=== PATIENT | female | born 1980 | race Caucasian/White ===

== ENCOUNTER → 2018-06-15 14:39 | Outpatient (CLI) | payer BC, SELFPAY ==
--- NOTE | 2018-06-15 14:49 | RAD_ITS ---
STUDY: X-RAY - PELVIS REASON FOR EXAM: Female, 38 years old. Pain. TECHNIQUE: One view of the pelvis was obtained. COMPARISON: None. FINDINGS: There is a non-specific bowel gas pattern. Normal visualized soft tissue structures. Normal bilateral iliac wings, sacroiliac joints and visualized sacrum. Normal visualized bilateral superior and inferior pubic rami. Normal pubic symphysis. Normal ischial tuberosities. Normal visualized right femoral head. Normal right acetabulum. Normal right hip joint. Normal visualized left femoral head. Normal left acetabulum. Normal left hip joint. RAD/Pelvis 1 or 2 Views IMPRESSION: Normal x-ray examination of the pelvis. Electronically Signed: Roni Jose MD at 23:29 EST , Service support ,
[2018-06-15 15:54] LABS: Absolute Lymphocyte Count 1.37 X10^3/ul (0.83-4.51); Absolute Neutrophil Count 5.1 X10^3/uL (2.0-7.7); Basophil# 0.02 X10^3/uL; Basophil% 0.3 % (0-1); Eosinophil# 0.07 X10^3/uL; Hematocrit 44.4 % (37-47); Hemoglobin 15.1 g/dl (12.0-15.0); Lymphocyte # 1.37 X10^3/ul (4.0); Mean Corpuscular Hgb 31.5 pg (27.0-32.0); Mean Corpuscular Volume 92.7 fL (81-99); Monocyte# 0.29 X10^3/uL; Monocyte% 4.2 % (0-10); Neutrophil # 5.07 X10^3/uL (2.7-7.7); Neutrophil % 74.2 % (47-70); Platelet Count 215 K/mm3 (150-450); RBC Distribution Width CV 14.1 % (11.6-14.6); RBC Distribution Width SD 46.5 fl (35.1-43.9); Red Blood Count 4.79 M/mm3 (4.2-5.4); White Blood Count 6.8 K/mm3 (4.4-11.0)
[2018-06-15 15:58] LABS: AST(SGOT) 29 U/L (15-37); Alanine Aminotransfer ALT/SGPT 46 U/L (13-56); Albumin, Serum 4.1 g/dL (3.2-5.0); Alkaline Phosphatase 82 U/L (45-117); Anion Gap 9 (5-15); BUN 12 mg/dL (7-18); BUN/Creat Ratio 15.1 RATIO (10-20); Calcium,Total 9.2 mg/dL (8.5-10.1); Chloride 105 mmol/L (98-107); Creatinine, Serum 0.79 mg/dL (0.55-1.02); EST Glomerular Filtration Rate 85 mL/min (>60); Est Glom Filt Rate - Afr Amer 103 mL/min (>60); Glucose 93 mg/dL (74-106); Protein, Total 8.1 g/dL (6.4-8.2); Rheumatoid Factor < 10.0 IU/mL (<15); Sodium Level 141 mmol/L (136-145)
[2018-06-15 15:59] LABS: POSITIVE COUNT NO; POSITIVE DIFFERENTIAL NO; POSITIVE MORPHOLOGY NO
[2018-06-22 16:55] LABS: CCP IgG Antibodies 4 units (0-19); HEPATITIS B SURFACE AG Negative (Negative); HLA B27 Negative (.); Hep B Surface Antibodies Reactive (.); Hep C Antibodies <0.1 s/co ratio (0.0-0.9)
== END ==
LOC: MTLAB 14:47
PROVIDERS: Family Provider Family Medicine; PCP Family Medicine; Referring Provider Internal Medicine Rheumatology; Visit Provider Internal Medicine Rheumatology
DX: M46.90 Unspecified inflammatory spondylopathy, site unspecified (principal); M79.7 Fibromyalgia; H81.03 Meniere's disease, bilateral; F41.9 Anxiety disorder, unspecified; F32.89 Other specified depressive episodes
CPT/HCPCS: 36415; 72170; 80053; 81374; 85025; 86200; 86431; 86706; 86803; 87340

== ENCOUNTER → 2018-08-24 07:43 | Outpatient (CLI) | payer BC, SELFPAY ==
[2018-08-24 10:15] LABS: Absolute Lymphocyte Count 0.89 X10^3/ul (0.83-4.51); Absolute Neutrophil Count 3.3 X10^3/uL (2.0-7.7); Basophil# 0.02 X10^3/uL; Basophil% 0.5 % (0-1); Eosinophil# 0.05 X10^3/uL; Eosinophils% 1.1 % (0-5); Hematocrit 41.5 % (37-47); Hemoglobin 13.7 g/dl (12.0-15.0); Lymphocyte # 0.89 X10^3/ul (4.0); Lymphocyte % 20.1 % (19-41); Mean Corpuscular Hgb 31.2 pg (27.0-32.0); Mean Corpuscular Volume 94.5 fL (81-99); Mean Platelet Vol. 9.7 fl (6.2-12.0); Monocyte# 0.21 X10^3/uL; Monocyte% 4.7 % (0-10); Neutrophil # 3.25 X10^3/uL (2.7-7.7); Neutrophil % 73.4 % (47-70); Platelet Count 186 K/mm3 (150-450); RBC Distribution Width CV 14.8 % (11.6-14.6); RBC Distribution Width SD 48.8 fl (35.1-43.9); Red Blood Count 4.39 M/mm3 (4.2-5.4); White Blood Count 4.4 K/mm3 (4.4-11.0)
[2018-08-24 10:20] LABS: POSITIVE COUNT NO; POSITIVE DIFFERENTIAL NO; POSITIVE MORPHOLOGY NO
[2018-08-24 10:27] LABS: AST(SGOT) 72 U/L (15-37); Alanine Aminotransfer ALT/SGPT 67 U/L (13-56); Albumin, Serum 3.8 g/dL (3.2-5.0); Alkaline Phosphatase 78 U/L (45-117); Anion Gap 7 (5-15); BUN 9 mg/dL (7-18); BUN/Creat Ratio 11.4 RATIO (10-20); Calcium,Total 9.1 mg/dL (8.5-10.1); Chloride 107 mmol/L (98-107); Creatinine, Serum 0.79 mg/dL (0.55-1.02); EST Glomerular Filtration Rate 86 mL/min (>60); Est Glom Filt Rate - Afr Amer 104 mL/min (>60); Globulin 3.7 g/dL (2.2-4.2); Glucose 103 mg/dL (74-106); Potassium 4.3 mmol/L (3.5-5.1); Protein, Total 7.5 g/dL (6.4-8.2); Sodium Level 141 mmol/L (136-145)
== END ==
PROVIDERS: Family Provider Family Medicine; PCP Family Medicine; Referring Provider Internal Medicine Rheumatology; Visit Provider Internal Medicine Rheumatology
DX: M46.90 Unspecified inflammatory spondylopathy, site unspecified (principal); M79.7 Fibromyalgia; H81.03 Meniere's disease, bilateral; F32.89 Other specified depressive episodes; F41.9 Anxiety disorder, unspecified
CPT/HCPCS: 36415; 80053; 85025

== ENCOUNTER → 2020-05-30 14:51 | Outpatient (CLI) | payer BC, SELFPAY ==
[2020-05-30 17:30] LABS: Absolute Lymphocyte Count 1.19 X10^3/uL (0.83-4.51); Absolute Neutrophil Count 6.9 X10^3/uL (2.0-7.7); Basophil# 0.04 X10^3/uL; Basophil% 0.5 % (0-1); Eosinophil# 0.08 X10^3/uL; Eosinophils% 0.9 % (0-5); Hematocrit 42.2 % (37-47); Hemoglobin 14.5 g/dL (12.0-15.0); Lymphocyte # 1.19 X10^3/ul (4.0); Lymphocyte % 13.9 % (19-41); Mean Corp Hgb Conc 34.4 g/dL (32-36); Mean Corpuscular Hgb 32.1 pg (27.0-32.0); Mean Corpuscular Volume 93.4 fL (81-99); Mean Platelet Vol. 10.1 fl (6.2-12.0); Monocyte# 0.39 X10^3/uL; Monocyte% 4.5 % (0-10); NRBC Flagged by Analyzer 0 % (0-5); Neutrophil # 6.85 X10^3/uL (2.7-7.7); Neutrophil % 79.7 % (47-70); Platelet Count 199 K/mm3 (150-450); RBC Distribution Width CV 13.5 % (11.6-14.6); RBC Distribution Width SD 45.4 fl (35.1-43.9); Red Blood Count 4.52 M/mm3 (4.2-5.4); White Blood Count 8.6 K/mm3 (4.4-11.0)
[2020-05-30 18:00] LABS: AST(SGOT) 58 U/L (15-37); Alanine Aminotransfer ALT/SGPT 53 U/L (13-56); Albumin, Serum 3.9 g/dL (3.2-5.0); Alkaline Phosphatase 102 U/L (45-117); Anion Gap 4 (5-15); BUN 12 mg/dL (7-18); BUN/Creat Ratio 13.1 RATIO (10-20); Chloride 107 mmol/L (98-107); Creatinine, Serum 0.92 mg/dL (0.55-1.02); EST Glomerular Filtration Rate 71 mL/min (>60); Est Glom Filt Rate - Afr Amer 86 mL/min (>60); Globulin 3.9 g/dL (2.2-4.2); Glucose 96 mg/dL (74-106); Potassium 4.3 mmol/L (3.5-5.1); Protein, Total 7.8 g/dL (6.4-8.2); Sodium Level 140 mmol/L (136-145)
== END ==
PROVIDERS: PCP Family Medicine; Referring Provider Internal Medicine Rheumatology; Visit Provider Internal Medicine Rheumatology
DX: M46.90 Unspecified inflammatory spondylopathy, site unspecified (principal); M79.7 Fibromyalgia; H81.03 Meniere's disease, bilateral; K76.0 Fatty (change of) liver, not elsewhere classified; F41.9 Anxiety disorder, unspecified; F32.89 Other specified depressive episodes; Z79.899 Other long term (current) drug therapy
CPT/HCPCS: 36415; 80053; 85025

== ENCOUNTER 2022-07-03 16:05 | Emergency (ER) | payer BC, SELFPAY ==
[2022-07-03 16:08] VITALS: BP 115/93; PULSE 105; RESP 16; TEMP 36.6; O2SAT 99; BMI 24.7
--- NOTE | 2022-07-03 16:26 | CT_ITS ---
EXAM: CT ABDOMEN AND PELVIS WITHOUT INTRAVENOUS CONTRAST CLINICAL INDICATION: Kidney Stone TECHNIQUE: Helically acquired images were obtained of the abdomen and pelvis without intravenous contrast. This CT exam was performed using one or more of the following dose reduction techniques: automated exposure control, adjustment of the mA and/or kV according to patient size, and/or use of iterative reconstruction technique. This report was created using [employer] report generation technology. COMPARISON: None. FINDINGS: LOWER THORAX: Unremarkable. Lung bases are clear. No cardiomegaly. No significant pericardial effusion. ABDOMEN: LIVER: Liver diffusely decreased in attenuation compatible with fatty infiltration. GALLBLADDER AND BILE DUCTS: Unremarkable. No calcified gallstones. No gallbladder distention or wall edema. No intra- or extrahepatic biliary ductal dilation. PANCREAS: Unremarkable. No focal cystic mass. SPLEEN: Unremarkable. Normal size without focal cystic or solid mass. ADRENALS: Unremarkable. No nodules. KIDNEYS AND URETERS: There are nonobstructing calyceal stones in both kidneys. Normal renal size and position. STOMACH AND BOWEL: Unremarkable. No stomach or bowel distention. No focal inflammatory change. PELVIS: APPENDIX: No evidence of acute appendicitis. BLADDER: Unremarkable. REPRODUCTIVE: Unremarkable as visualized. No mass. ABDOMEN and PELVIS: INTRAPERITONEAL SPACE: Unremarkable. No ascites or other fluid collection. No free air. BONES/JOINTS: Unremarkable. No suspicious lytic or blastic abnormality. SOFT TISSUES: Unremarkable. No discrete abdominal or pelvic wall hernia. VASCULATURE: Unremarkable. Abdominal aorta is non-dilated. LYMPH NODES: Unremarkable. No enlarged lymph nodes. CT/Abdomen/Pelvis without Cont IMPRESSION: Nonobstructing calyceal stones. There are no acute abnormalities in the abdomen or pelvis. Electronically Signed: Farhad Erazo MD at 17:22 [facility] ,
--- NOTE | 2022-07-03 16:27 | EDS_ITS ---
HPI HPI - GI History of Present Illness Chief Complaint: Abd Pain Narrative Narrative: 42-year-old female past medical history of 5 mm renal stone on the right presents with 1 month history of left flank pain. It is gotten worse over the last 3 to 4 days. She is experienced nausea and vomited a few times a few days ago without any blood in her emesis. She describes a intermittent pain in her left kidney area that wraps around to the front. She feels dehydrated. She denies any dysuria or hematuria. No exacerbating or alleviating factors for her pain. She states that her primary care provider recommended that she be evaluated here. She was supposed to see a urologist over the last month but she states someone dropped the ball.. She denies any fevers or chills. No other symptoms. PFSH PFSH Medical History no medical history Home Medications celecoxib 100 mg capsule (Celebrex) 100 mg PO BID 07/03/22 [History Last Taken Unknown] cyclobenzaprine 10 mg tablet 10 mg PO TID PRN muscle spasm #20 tabs 07/03/22 [Rx Last Taken Unknown] gabapentin 300 mg capsule 300 mg PO QHS 07/03/22 [History Last Taken Unknown] naproxen 500 mg tablet 500 mg PO BID PRN PRN pain #20 tabs 07/03/22 [Rx Last Taken Unknown] sertraline 100 mg tablet (Zoloft) 100 mg PO DAILY 07/03/22 [History Last Taken Unknown] Allergy/AdvReac Type Severity Reaction Status Date / Time cephalexin Allergy Rash Verified 07/03/22 16:08 Sulfa (Sulfonamide Allergy Swelling Verified 07/03/22 16:08 Antibiotics) nalbuphine [From Nubain] AdvReac Nausea/Vom/ Verified 07/03/22 16:08 Diarrhea Social History Smoking Status: Former smoker ROS ROS ED ROS Narrative Constitutional: No fever, no chills. HEENT: No sore throat. No neck pain. No loss of vision. No rhinorrhea. Cardiovascular: No chest pain. No palpitations. No pedal edema. Respiratory: No cough, no shortness of breath. Abdominal: No abdominal pain. Positive nausea. Positive vomiting-resolved. Genitourinary: No dysuria. No hematuria. Left flank pain. No exacerbating or alleviating factors. Musculoskeletal: No myalgias. No arthralgias. Neurologic: No headaches. No dizziness. No lightheadedness. Skin: No rash. No change in color. Psychiatric: No depression. No anxiety. EXAM Physical Exam Narrative Exam Narrative: Afebrile. Vital signs noted. HEENT: Normocephalic. Atraumatic. PERRL, EOMI. Neck soft and supple. No point tenderness or step off. Cardiovascular: Regular rate and rhythm. No murmurs, rubs, or gallops appreciated. Respiratory: No tachypnea. Lungs clear to auscultation bilaterally. Gastrointestinal: Abdomen soft, nontender, with normoactive bowel sounds. No rebound or guarding. Questionable CVA tenderness to percussion. Neurological: Awake. Alert. Nonfocal, nonlateralizing. Skin: No rash. Normal color. No pallor. Musculoskeletal: No pedal edema. Full range of motion extremities. Const Vital Signs: 07/03/22 16:08 Temperature 98 F Temperature Source Temporal Pulse Rate 105 H Respiratory Rate 16 Blood Pressure 115/93 H Blood Pressure Mean 100 Pulse Ox 99 Oxygen Delivery Method Room Air MDM MDM MDM Narrative Medical decision making narrative: Patient administered Toradol for analgesia. She has had a bilateral tubal ligation. Comprehensive work-up was pursued. I obtain CBC, BMP, urinalysis, and CT flank without contrast. She was bolused normal saline intravenously. She was given Toradol for analgesia. CBC is grossly normal with a normal white count of 5.8, hemoglobin of 15.1 with hematocrit 43.5, normal platelet count of 159. BMP is grossly normal with normal creatinine of 0.7 and a normal BUN of 15. Urinalysis negative for infection or blood. CT of the abdomen and pelvis shows nonobstructing bilateral renal stones but no evidence of hydronephrosis or ureteral stones. At this point in time, I am unsure as to the cause of her left flank pain. She states that she has pain in the left paraspinal musculature. I offered to write her prescriptions for cyclobenzaprine and naproxen which she accepted. I do feel that she can be discharged safely home with continued follow-up to her primary care provider. Return instructions to the emergency department were reviewed. Disposition is discharged home in stable condition. Lab Data Attestation: I reviewed the patient's lab results. Labs: Laboratory Results - last 24 hr 07/03/22 07/03/22 07/03/22 16:25 16:25 16:50 WBC 5.8 RBC 4.86 Hgb 15.1 H Hct 43.5 MCV 89.5 MCH 31.1 MCHC 34.7 RDW Std Deviation 42.6 RDW Coeff of Mariluz 13.2 Plt Count 159 MPV 9.3 Immature Gran % (Auto) 0.500 Neut % (Auto) 70.4 H Lymph % (Auto) 19.7 [place] % (Auto) 8.0 Eos % (Auto) 1.2 Baso % (Auto) 0.2 Absolute Neuts (auto) 4.1 Absolute Lymphs (auto) 1.14 Nucleated RBC % 0 Sodium 139 Potassium 3.7 Chloride 106 Carbon Dioxide 24.0 Anion Gap 9 BUN 15 Creatinine 0.78 Estim Creat Clear Calc 76.14 Est GFR (MDRD) Af Amer 103 Est GFR (MDRD) Non-Af 85 BUN/Creatinine Ratio 19.3 Glucose 94 Calcium 9.0 Urine Color Yellow Urine Clarity Clear Urine pH 6.5 Ur Specific [place] 1.010 Urine Protein Negative Urine Glucose (UA) Normal Urine Ketones 5 H Urine Occult Blood Negative Urine Nitrite Negative Urine Bilirubin Negative Urine Urobilinogen Normal Ur Leukocyte Esterase Negative Urine RBC 0 SEEN Urine WBC 0 SEEN Ur Squamous Epith Cells 0-5 SEEN Urine Bacteria 0 SEEN Urine Mucus 0 SEEN Radiography Diagnostic Testing: Clinical Impression(s) from Imaging Studies Abdomen/Pelvis CT 07/03/22 16:26 IMPRESSION: Nonobstructing calyceal stones. There are no acute abnormalities in the abdomen or pelvis. Electronically Signed: Farhad Erazo MD at 17:22 EST , Discharge Plan Triage Chief Complaint: Abd Pain ED Provider: Dre Franco Dx/Rx/DC Orders Clinical Impression: Left flank pain, Left paraspinal back pain Instructions: ED Flank Pain, Uncertain Cause, ED Pain, Acute, Uncertain Cause Prescriptions: New cyclobenzaprine 10 mg tablet 10 mg PO TID PRN (Reason: muscle spasm) Qty: 20 0RF naproxen 500 mg tablet 500 mg PO BID PRN PRN (Reason: pain) Qty: 20 0RF No Action sertraline [Zoloft] 100 mg Tablet 100 mg PO DAILY gabapentin 300 mg Capsule 300 mg PO QHS celecoxib [Celebrex] 100 mg Capsule 100 mg PO BID Primary Care Provider: Sheela Reyes Referrals: Sheela Reyes, [Primary Care Provider] - 3-5 Days if not improving Disposition Disposition: Home, Self Care
[2022-07-03] MEDS: Ketorolac 15 MG/ML Vial IV (16:38)
[2022-07-03 16:55] LABS: Absolute Lymphocyte Count 1.14 X10^3/uL (0.83-4.51); Absolute Neutrophil Count 4.1 X10^3/uL (2.0-7.7); Basophil# 0.01 X10^3/uL; Basophil% 0.2 % (0-1); Eosinophil# 0.07 X10^3/uL; Eosinophils% 1.2 % (0-5); Hematocrit 43.5 % (37-47); Hemoglobin 15.1 g/dL (12.0-15.0); Lymphocyte # 1.14 X10^3/ul (0.83-4.51); Lymphocyte % 19.7 % (19-41); Mean Corp Hgb Conc 34.7 g/dL (32-36); Mean Corpuscular Hgb 31.1 pg (27.0-32.0); Mean Corpuscular Volume 89.5 fL (81-99); Mean Platelet Vol. 9.3 fl (6.2-12.0); Monocyte# 0.46 X10^3/uL; NRBC Flagged by Analyzer 0 % (0-5); Neutrophil # 4.07 X10^3/uL (2.7-7.7); Neutrophil % 70.4 % (47-70); Platelet Count 159 K/mm3 (150-450); RBC Distribution Width CV 13.2 % (11.6-14.6); RBC Distribution Width SD 42.6 fl (35.1-43.9); Red Blood Count 4.86 M/mm3 (4.2-5.4); White Blood Count 5.8 K/mm3 (4.4-11.0)
[2022-07-03 17:01] LABS: Bacteria 0 SEEN /hpf (None Seen); Mucous, Urine 0 SEEN /hpf (<or=2+); Red Blood Cells-Urine 0 SEEN /hpf (0-5); White Blood Cells 0 SEEN /hpf (0-5)
[2022-07-03 17:12] LABS: Color, Urine Yellow (Yellow); Glucose, Dipstick Normal (Normal); Ketone-Dipstick 5 mg/dl (Negative); Leukocyte Esterase-Dipstick Negative /ul (Negative); Nitrite-Dipstick Negative (Negative); Occult Blood-Urine Negative /ul (Negative); Protein-Dipstick Negative (Negative); Urine Bilirubin Dipstick Negative (Negative); Urine Clarity Clear (Clear); Urine Urobilinogen Normal (Normal); Urine pH 6.5 (5.0 - 8.0)
[2022-07-03 17:17] LABS: Anion Gap 9 (5-15); BUN 15 mg/dL (7-18); BUN/Creat Ratio 19.3 RATIO (10-20); Chloride 106 mmol/L (98-107); Creatinine, Serum 0.78 mg/dL (0.55-1.02); EST Glomerular Filtration Rate 85 mL/min (>60); Est Glom Filt Rate - Afr Amer 103 mL/min (>60); Estimated Creatinine Clearance 76.14 ml/min; Glucose 94 mg/dL (74-106); Potassium 3.7 mmol/L (3.5-5.1); Sodium Level 139 mmol/L (136-145)
[2022-07-03 17:19] LABS: Squamous Epithelial Cells - UA 0-5 SEEN /hpf (5-10)
[2022-07-03 18:28] VITALS: BP 123/91; PULSE 89; RESP 16; O2SAT 96
== END 2022-07-03 18:29 | disposition home or self-care (01) ==
PROVIDERS: Emergency Provider Emergency Medicine; PCP Family Medicine; Visit Provider Emergency Medicine
DX: R10.9 Unspecified abdominal pain (principal); N20.0 Calculus of kidney; Z87.891 Personal history of nicotine dependence; M54.9 Dorsalgia, unspecified
CPT/HCPCS: 74176; 80048; 81001; 85025; 96374; 99282; A4216

== ENCOUNTER → 2022-07-07 | Outpatient (CLI) | payer BC, SELFPAY ==
--- NOTE | 2022-07-07 12:30 | RAD_ITS ---
EXAM: XR ABDOMEN, 1 VIEW CLINICAL INDICATION: CALCLUS OF KIDNEY TECHNIQUE: Frontal supine view of the abdomen/pelvis. This report was created using [employer] report generation technology. COMPARISON: 06/15/18 FINDINGS: LOWER THORAX: No acute pathology. GASTROINTESTINAL TRACT: Prominent amount of stool and gas throughout the colon. ORGANS: Unremarkable as visualized. No organomegaly. No abnormal calcifications. BONES/JOINTS: No acute pathology. SOFT TISSUES: No acute pathology. OTHER FINDINGS: No obvious urolithiasis although the overlying stool and gas limits this type of assessment. RAD/Abdomen Single View IMPRESSION: 1. No acute disease or bowel obstruction. 2. Prominent amount of stool and gas throughout the colon can be seen with constipation. Electronically Signed: Yehuda Long MD at 4:39 EST ,
== END | disposition home or self-care (01) ==
LOC: RAD 12:20
PROVIDERS: PCP Family Medicine; Visit Provider Urology
DX: N20.0 Calculus of kidney (principal)
CPT/HCPCS: 74018

== ENCOUNTER 2023-01-15 05:45 | Day surgery (SDC) | payer BC, SELFPAY ==
[2023-01-13 08:19] LABS: Hematocrit 40.5 % (37-47); Hemoglobin 14.4 g/dL (12.0-15.0); Mean Corp Hgb Conc 35.6 g/dL (32-36); Mean Corpuscular Hgb 32.9 pg (27.0-32.0); Mean Corpuscular Volume 92.5 fL (81-99); Mean Platelet Vol. 9.2 fl (6.2-12.0); Platelet Count 196 K/mm3 (150-450); RBC Distribution Width CV 14.6 % (11.6-14.6); RBC Distribution Width SD 44.7 fl (35.1-43.9); Red Blood Count 4.38 M/mm3 (4.2-5.4); White Blood Count 6.3 K/mm3 (4.4-11.0)
--- NOTE | 2023-01-14 17:26 | PCM.HP.BLA ---
History and Physical Date of Admission: 01/15/23 Pre-Op History and Physical HPI: The patient is a 42 year old female presenting for pre-operative visit. She is scheduled for laparoscopic bilateral salpingectomy, for pelvic pain, left hydrosalpinx on 01/15/2023. Procedure discussed along with risks, benefits and complications. Other alternatives discussed for management. Consent form signed? Yes. ? ? PAST MEDICAL HISTORY PAST MEDICAL HISTORY Diagnosis Date ? Rheumatoid arteritis (HCC) ? ? ? PAST SURGICAL HISTORY PAST SURGICAL HISTORY Procedure Laterality Date ? APPENDECTOMY ? 04/2010 ? CHOLECYSTECTOMY ? 2004 ? PAST SURGICAL HISTORY OF ? 10/08 ? back surgery on L4 and 5 ? TUBAL LIGATION HX ? 1999 ? ? ? CURRENT MEDICATIONS Current Outpatient Medications Medication Sig Dispense Refill ? levonorgestrel (MIRENA) 21 mcg/24 hours (8 yrs) 52 mg IUD 1 Each by INTRAUTERINE route as directed. 1 Each 0 ? mv-min/iron/folic/calcium/vitK (WOMEN'S MULTIVITAMIN ORAL) Take by mouth. ? ? ? ibuprofen (MOTRIN) 600 mg tablet Take 1 tablet by mouth every 6 hours as needed. FOR PAIN. 60 tablet 1 ? sertraline (ZOLOFT) 100 mg tablet Take 150 mg by mouth once daily. ? No current facility-administered medications for this visit. ? ? ALLERGIES: Keflex [Cephalexin], Nubain [Nalbuphine], and Sulfa (Sulfonamide Antibiotics) ? PERSONAL HISTORY: SOCIAL HISTORY Social History ? Tobacco Use ? Smoking status: Former ? ? Years: 10.00 ? ? Types: Cigarettes ? ? Start date: 03/19/2009 ? Smokeless tobacco: Never Substance Use Topics ? Alcohol use: Yes ? ? Comment: Rare ? Drug use: No ? FAMILY HISTORY: FAMILY HISTORY FAMILY HISTORY Problem Relation Age of Onset ? Heart Mother ? ? 2 stents ? Hyperlipidemia Mother ? ? Hypertension Mother ? ? ? REVIEW OF SYMPTOMS: negative except as noted above PHYSICAL EXAMINATION: ? VITALS: Blood pressure 120/80, weight 175 lb (79.4 kg), last menstrual period 11/28/2022. ? GENERAL: The patient is well nourished, well hydrated in no acute distress. , The patient is oriented to time, place, and person. LUNGS: Clear to auscultation bilaterally. no wheezes, rhonchi or rales HEART: Regular rate and rhythm, Normal heart sounds, and No murmurs or gallops Neck: full range of motion ? IMPRESSION: 42-year-old female with left lower quadrant intermittent pain, left hydrosalpinx ? PLAN: Laparoscopic bilateral salpingectomy ? Pt has been counseled on risks/benefits and alternatives of surgery including but not limited to anesthesia, bleeding, infection, injury to pelvic structures including bowel, bladder, ureters and vessels. Pt wishes to proceed with surgery at this time. Patient has a history of a tubal ligation. She does not desire further childbearing capabilities. IUD is already in place. ? Pre and postop procedures reviewed ? I have reviewed and updated past medical and surgical history, medications and allergies Robyn Pinto MD ?4:08 PM
[2023-01-15] VITALS (8 sets, daily range): BP systolic 93–127; BP diastolic 57–82; PULSE 69–89; RESP 16–18; TEMP 36–36.4; O2SAT 90–100; BMI 31.4
[2023-01-15] MEDS: Lactated Ringers 1,000 ML 15 ML IV ×2 (06:15→09:06)
[2023-01-15 07:02] LABS: Internal QC Validated? YES +Cl - CLEAR BKGD; Pregnancy, Urine Negative Negative
--- NOTE | 2023-01-15 07:25 | DCINST_ITS ---
Discharge Instructions Procedure Other Diet Discharge Diet: No restrictions Activity May resume sexual activity in: 2 weeks Lifting Restrictions: 20-25 lbs Dressing / Incision Call your doctor if your incision/area has: Continuous Slow Oozing, Sudden Increased Bleeding, Increased Pain/ Swelling, Increased Redness, Foul Smelling Discharge and Swelling at the incision site Call your doctor if you observe: Fever of 101 or Higher, Inability to urinate, Inability to have a bowel movement, Using more than 1 pad per hour and Uncontrolled pain Additional Dressing/Incision Instructions:: You have skin glue over your incision sites, do not pick off. You may shower and let the soap and water run over the incision sites and dab dry. Follow Up Care Please Follow Up With: Robyn Hartman MD When: 1-2 weeks post OP if you need an appointment please call [phone] Test Results: Test results from this visit will be discussed in further detail at your follow- up appointment, if applicable. Discharge Plan Admission Attending Provider: Robyn Hartman Primary Care Provider: Fabiana Rand Discharge Orders/Prescriptions Prescriptions: No Action sertraline [Zoloft] 100 mg Tablet 100 mg PO DAILY ibuprofen 600 mg Tablet 600 mg PO Q8H PRN (Reason: Pain) biotin 500 mcg Capsule 1 mg PO DAILY Referrals / Follow Up: Fabiana Rand PA-C [Primary Care Provider] - Disposition Disposition (needs filled in before D/C Order can be placed): Home, Self Care
--- NOTE | 2023-01-15 07:30 | FALS_PTH ---
PATIENT: BERE CENTENO LOC: [facility] [place] U[place][id number] AGE/SX: 42/F ROOM: RE01/15/[address]: Dr. Robyn Hartman, MDDOB: 1980 BED: DIS: 01/15/2023 SPEC #: [id number] RECD: 01/15/23 09:49 STATUS: SVETA YANG #: [id number] SUSI: 01/15/23 07:[address]: Robyn Hartman DEPT: SURGICAL PATHOLOGY RECD BY: Lisset Celaya ENTERED: 01/15/23 10:35 SP TYPE: FALL TUBES OT DR: Fabiana Rand PA-C Tissues: Fallopian tube Procedures: Surgery Specimen Level II HEADER OPERATION: Laparoscopic salpingectomy PRE-OP DIAGNOSIS: Pelvic pain, left hydrosalpinx TISSUE SUBMITTED: Bilateral fallopian tubes MICROSCOPIC DIAGNOSIS Right and left fallopian tubes, bilateral salpingectomies: Consistent with hydrosalpinx and benign paratubal cysts. AM:alma 01/16/2023 MICROSCOPIC DESCRIPTION Slides are reviewed. GROSS DESCRIPTION Received in fixative is one container labeled with the patient's name and designated bilateral fallopian tubes. The specimen consists of two fallopian tubes with an average length of 4.0 cm and has an average diameter of 0.7 cm. Both fallopian tubes have normal fimbriated ends. No mass lesions are identified. Bottler Helper sections are submitted in two cassettes as follows: 1 - one fallopian tube, 2??the other fallopian tube. / AM:alma 01/15/2023 TC:5 CPT: 86035 x2
[2023-01-15] MEDS: Bupivacaine Mpf 0.5% 30 ML VIAL (07:55)
--- NOTE | 2023-01-15 08:28 | PCM.OPRPT ---
Report of Operation Date of Procedure: 01/15/23 Pre-Operative Diagnosis: Pelvic pain, left hydrosalpinx Post-Operative Diagnosis: same, significant Omental adhesions Surgery/Procedure Performed:: Lysis of adhesions, bilateral salpingectomy Description of Surgical Findings:: Signifcant adhesions of omentum to anterior abomdinal wall that need to be taken down prior to start of case- took more then 50% of operating time to take down. Surgeon: Robyn Hartman school community relations coordinator: None Type of Anesthesia: General and Local Special Medications: 0.5% marcaine Specimen's removed: Bilateral fallopian tubes Estimated Blood Loss (mL): <5cc Fluids Replaced: 800 Description of Procedure: After informed consent was obtained patient was taken to the operating room she was placed in supine position she was given anesthesia. She was then placed in the [facility] stirrups and she was prepped and draped in normal sterile fashion. Bladder was drained prior to the start of procedure. At this time attention was turned to the vaginal portion where weighted speculum placed at posterior fornix vagina single-tooth tenaculum was used to gently grasp the internal the cervix. uterus was gently sounded to [id number]. IUD inadvertently displaced with sound but easily replaced with rain- strings in place- the cervix on posterior lip tore from tenaculum- 3-0 vicryl in figure of eight fashion suture placed for hemostasis Uterine manipulator was placed without difficulty. Legs then placed in parallel with the abdomen the tenaculum and the weighted speculum were removed. 2 towel clamps were placed at level of umbilicus. Marcaine was injected infraumbilical and a small incision was made. The 5 mm trocar was placed under direct visualization. CO2 gas was used to insufflate the intra-abdominal cavity. Upon inspection signifcant omental adhesions noted to anterior abdominal wall to midline at umbilical area. the uterus tubes and ovaries appeared to be normal- small hydrosalpinx noted on left. At this time then the LLQ and RLQ ports were placed First Marcaine was injected and small incision was made a knife and the 5 mm trocars were placed. Adhesions taken down with enseal-in avascular plain - no bowel present. good hemostasis noted. At this time then tubes were traced back to the fimbriated ends. enseal was used to coagulate and ligate along mesosalpynx bilaterally until tubes removed completely. Good hemostasis was appreciated. At this time procedure was deemed complete successful. The gas was desufflated on from the intra-abdominal cavity. The trochars were removed. Skin was closed using 4-0 Monocryl in a subcutaneous fashion. Dermabond glue was placed. Instrument lap and needle counts were correct ?2. The uterine manipulator was removed with and IUD strings still visualized in place. Vaginal sweep was performed it was negative. There were no complications anticipated normal postoperative course for this patient. Grafts/Implants Used: none Procedure Start Time: 07:51 Procedure Stop Time: 08:27 Complications none Admit VTE Documentation VTE Present on Admission: Yes VTE Mechan Device Prophylaxis: SCD's VTE Pharm Prophylaxis ordered?: No Reason prophylaxis not ordered:: Procedure Not Indicated
[2023-01-15] MEDS: LORazepam 2 MG/ML Syringe IV (09:56)
== END 2023-01-15 11:50 | disposition home or self-care (01) ==
LOC: SDC 05:45 → AC 05:45
PROVIDERS: Anesthesiology; PCP Family Medicine; Referring Provider Obstetrics & Gynecology; Visit Provider Obstetrics & Gynecology
PROC: (CPT 58661; principal; 2023-01-15 07:15)
DX: N70.11 Chronic salpingitis (principal); R10.32 Left lower quadrant pain; S37.63XA Laceration of uterus, initial encounter; N99.71 Accidental puncture and laceration of a genitourinary system organ or structure during a genitourinary system procedure; N73.6 Female pelvic peritoneal adhesions (postinfective); Z87.891 Personal history of nicotine dependence
CPT/HCPCS: 58661; 49329; 00840; 36415; 81025; 85027; 88302; 93005; J7120; C1760; J2405

== ENCOUNTER → 2024-12-28 | Outpatient (CLI) | payer BC, SELFPAY ==
[2025-01-01 08:08] LABS: HPV APTIMA, High Risk Negative (Negative)
== END | disposition home or self-care (01) ==
LOC: LABSPEC 16:05
PROVIDERS: PCP Family Medicine; Referring Provider Advanced Practice Midwife; Visit Provider Advanced Practice Midwife
DX: Z12.4 Encounter for screening for malignant neoplasm of cervix (principal)
CPT/HCPCS: 87624; 88175; G0145

== ENCOUNTER → 2025-01-10 | Outpatient (CLI) | payer BC, SELFPAY ==
--- NOTE | 2025-01-10 15:30 | BI_ITS ---
EXAM: SCRN MAMM (CAD)W/JESUSITA BILAT DATE: 01/10/2025 CLINICAL HISTORY: F, Age 44 y/o , ANNUAL BREAST CANCER RISK ASSESSMENT: This is not calculated at this time. TECHNIQUE: Bilateral screening digital breast tomosynthesis with 2D and 3D images. Computer aided detection. COMPARISON: Prior exam(s) dated 09/10/2023, 05/19/2022. FINDINGS: TISSUE DENSITY: The breast tissue is composed of scattered areas of fibroglandular density. Bilateral Breast Mammographic Findings: There is an asymmetry in the central right breast at middle depth visualized on the MLO view. No significant masses, calcifications or other abnormalities are identified in the left breast. BI/SCRN MAMM (CAD)W/JESUSITA BILAT IMPRESSION: The asymmetry in the central right breast at middle depth requires further eval uation. Recommend diagnostic mammogram of the right breast and ultrasound on the day of diagnostic if indicated. OVERALL FINAL ASSESSMENT BI-RADS 0: INCOMPLETE - NEED ADDITIONAL IMAGING EVALUATION. RECOMMENDATION: Additional Views obtained/call backs A letter with findings and recommendations will be mailed to the patient. Reading Location: [id number]
== END | disposition home or self-care (01) ==
LOC: OPBI 15:13
PROVIDERS: PCP Student in an Organized Health Care Education/Training Program; Referring Provider Advanced Practice Midwife; Visit Provider Advanced Practice Midwife
DX: Z12.31 Encounter for screening mammogram for malignant neoplasm of breast (principal)
CPT/HCPCS: 77063; 77067

== ENCOUNTER → 2025-01-17 | Outpatient (CLI) | payer BC, SELFPAY ==
--- NOTE | 2025-01-17 08:57 | BI_ITS ---
EXAM: DIAG MAMM W/CAD, UNILAT 01/17/2025 CLINICAL HISTORY: F, Age 44 y/o , ABNORMAL WINST[place] TECHNIQUE: DIAG MAMM W/CAD, UNILAT. COMPARISON: Prior exam(s) dated January 10, 2025.. FINDINGS: TISSUE DENSITY: The breast tissue is heterogeneously dense, which may obscure small masses. Bilateral Breast Mammographic Findings: No significant masses, calcifications or other abnormalities are identified. Sonographic correlation recommended. BI/DIAG MAMM W/CAD, UNILAT IMPRESSION: Targeted sonographic correlation recommended. OVERALL FINAL ASSESSMENT BI-RADS 0: INCOMPLETE - NEED ADDITIONAL IMAGING EVALUATION. RECOMMENDATION: Ultrasound Recommended A letter with findings and recommendations will be mailed to the patient. Reading Location: [id number]
--- NOTE | 2025-01-17 08:58 | US_ITS ---
PROCEDURE: BREAST LIMITED UNILATERAL 01/17/2025 REASON FOR EXAM: ABNORMAL [place] Abnormality in the central portion of the right breast. TECHNIQUE: BREAST LIMITED UNILATERAL COMPARISON: Prior mammogram done earlier in the day as well as prior mammogram dated January 11, 2025.. FINDINGS: Right breast ultrasound was targeted to the retroareolar region of the right breast.. There is a 5 mm x 4 mm x 3 mm cyst at the 12 o'clock position of the breast at 6 cm from the nipple. Echogenic focus is seen along its dependent portion. Aspiration recommended. US/Breast Limited Unilateral IMPRESSION: 5 mm x 4 mm x 3 mm cyst at the 12 o'clock position of the breast at 6 cm from t he nipple. Follow-up code: Cyst aspiration. BI-RADS category 4. Reading Location: [id number]
--- OUTSIDE RECORDS SUMMARY | 2025-01-17 19:46 | XMS RPT_ITS | CCD ---
Author Organization [facility] CliniSysd Care Team Providers Care Answering Service Telephone Operator Name Role Phone Oracio Bland MD Primary Care Provider ORACIO BLAND Primary Care Unavailable JACOB PEARCERE Referring Unavail able SHEELA HUIZAR Referring [facility]available [facility] Primary Care Unavailable SHEELA HUIZAR Referring Unavailable [facility] Primary Care Unavailable ROBYN PEARCE Attending Unavail able [facility] Primary Care Unavailable ROBYN PEARCE Attending Unavail able [facility] Primary Care Unavailable JACOB PEARCERE Referring Unavail able [facility] Primary Care Unavailable JACOB PEARCERE Referring Unavail able ROBYN PEARCE Attending Unavail able Oracio Bland MD [facility] Provider SHEELA HUIZAR Referring [facility]available [facility] Primary Care Unavailable MARIBEL VINSON MD Attending Unavailable MARIBEL VINSON MD Consulting Unavailable MARIBEL VINSON MD Primary Care Unavailable MARIBEL VINSON MD Admitting Unavailable PROVIDER, UNKNOWN Consulting Unavailable PROVIDER, UNKNOWN Consulting Unavailable Giorgi PA-CFabiana Primary Care Provider Giorgi PA-CFabiana Referring Provider [phone] Susan Pozo CNM Attending Provider Susan Pozo CNM Referring Provider Susan Pozo Attending Unavailable Fabiana Cutler Referring Unavailable Fabiana Cutler Primary Care Unavailable Susan Pozo Attending Unavailable Susan Pozo Referring Unavailable Maribel Vinson Primary Care Unavailable Susan Pozo Referring Unavailable Susan Pozo Attending Unavailable Maribel Vinson Primary Care Unavailable Fabiana Cutler Primary Care Unavailable Susan Pozo Referring Unavailable Susan Pozo Attending Unavailable Abdulaziz CASEY, Dr. López Primary Care Provider Allergies Allergy Classification Reported Allergen(s) Allergy Type Date of Onset Reaction(s) Facility (15 sources) Cephalexin; Translations: [CEPHALEXIN] Drug Allergy 5 Hives, Itching [facility] (15 sources) Nalbuphine; Translations: [NALBUPHINE] Drug Allergy 5 Hives, Itching [facility] (9 sources) Sulfonamides (Antibiotic); Translations: [SULFA (SULFONAMIDE ANTIBIOTICS)] Drug Allergy 9 Hives [facility] (6 sources) Sulfonamides (Antibiotic) Allergy to substance [address] [facility] (1 source) Cephalexin Drug Allergy [facility] (1 source) Nalbuphine Drug Allergy [facility] (1 source) Cephalexin Drug Allergy [address] [facility] (1 source) Nalbuphine Drug Allergy [address] [facility] (1 source) Sulfonamides (Antibiotic) Drug allergy (disorder) [address] [facility] Medications Current Medications Medication Drug Class(es) Dates Sig (Normalized) Sig (Original) Biotin (4 sources) Start: 01-08-2023 take 1 mg by mouth once daily Biotin 500 mcg Capsule Active 1 mg PO DAILY January 08, 2023 12:00am Start: 01-08-2023 take 1 mg by mouth once daily Biotin Active 1 MG PO DAILY January 08, 2023 12:00am cyclobenzaprine hydrochloride 10 mg oral tablet (2 sources) Muscle Relaxant Start: 07-03-2022 take 10 mg by mouth three times daily Cyclobenzaprine Active 10 MG PO THREE TIMES A DAY July 03, 2022 12:00am Levonorgestrel-Ethiny l Estrad (2 sources) Progestin, Estrogen, Progestin-containi ng Intrauterine Device Start: 12-28-2024 take 1 tablet by mouth once daily Levonorgestrel-Ethin yl Estrad 0.1-20 mg-mcg tablet Active 1 {tbl} PO daily December 28, 2024 12:00am ibuprofen 600 mg oral tablet (11 sources) Nonsteroidal Anti-inflammatory Drug Start: 01-08-2023 take 1 tablet by mouth every eight hours as needed for pain Ibuprofen 600 mg Tablet Active 600 mg PO Q8H as needed for Pain January 08, 2023 12:00am Start: 09-19-2019 take 1 tablet by mario th every six hours as needed ibuprofen (MOTRIN) 600 mg tablet Take 1 tablet by mouth every 6 hours as needed. FOR PAIN. 60 tablet 1 09/19/2019 Active Comment on above: Take 1 tablet by mario th every 6 hours as needed. FOR PAIN. levonorgestrel 0.785268 mg/hr intrauterine system (4 sources) Progestin, Progestin-containing Intrauterine Device Start: 11-18-19 End: 11-16-19 levonorgestrel (MIRENA) 21 mcg/24 hours (8 yrs) 52 mg IUD 1 Each by INTRAUTERINE route as directed. 1 Each 0 11/17/2022 11/16/2027 Active Comment on above: 1 Each by INTRAUTERI NE route as directed. naproxen 500 mg oral tablet (2 sources) Nonsteroidal Anti-inflammatory Drug Start: 07-03-20 take 500 mg by mouth twice daily as needed Naproxen Active 500 MG PO TWICE DAILY NEEDED July 03, 2022 6:05pm sertraline 100 mg oral tablet (13 sources) Serotonin Reuptake Inhibitor Start: 07-03-20 take 1 tablet by mouth once daily Sertraline (Zoloft) 100 mg Tablet Active 100 mg PO DAILY July 03, 2022 1:00am sertraline (ZOLO FT) 100 mg tablet Take 150 mg by mouth once daily. 0 Active Comment on above: Take 150 mg by mouth once daily. Completed/Discontinued Medications Medication Drug Class(es) Dates Sig (Normalized) Sig (Original) busPIRone hydrochloride 15 mg oral tablet (5 sources) End: 01-08-2023 take 15 mg by mouth three times daily buspirone HCl (BUSPAR ORAL) Take 15 mg by mouth three times daily. 0 01/08/2023 Discontinued Comment on above: Take 15 mg by mouth three times daily. celecoxib 200 mg oral capsule (5 sources) Nonsteroidal Anti-inflammatory Drug Start: 10-16-2022 End: 06-15-2023 take 1 capsule by mouth twice daily celecoxib (CELEBREX) 200 mg capsule Take 200 mg by mouth twice daily. 0 10/16/2022 01/08/2023 Discontinued Start: 07-03-2022 take 1 capsule by [facility] twice daily Celecoxib (Celebrex) 100 mg Capsule Active 100 MG PO TWICE A DAY July 03, 2022 12:00am Comment on above: Take 200 mg by mouth twice daily. drospirenone / Ethinyl Estradiol (3 sources) Progestin, Estrogen Start: 12-26-2019 End: 11-04-2022 Drospirenone-Ethinyl Estradiol (GIANVI, 28,) 3-0.02 mg per tablet Take one active pill continuously x 3 months 3 Package 5 12/26/2019 11/04/2022 Discontinued Start: 12-26-2019 Drospirenone-E thinyl Estradiol (GIANVI, 28,) 3-0.02 mg per tablet Take one active pill continuously x 3 months 3 Package 5 12/26/2019 Active Comment on above: Take one active pill continuously x 3 months folic acid 1 mg oral tablet (5 sources) End: 3 take 1 tablet by mouth once daily folic acid 1 mg tablet Take 1 mg by mouth once daily. 0 01/08/2023 Discontinued Comment on above: Take 1 mg by mouth o nce daily. gabapentin 300 mg oral capsule (5 sources) Anti-epileptic Agent Start: 2 End: 3 gabapentin (NEURONTIN) 300 mg capsule Take by mouth. 0 07/03/2022 01/08/2023 Discontinued Comment on above: Take by mouth. methotrexate 2.5 mg oral tablet (5 sources) Folate Analog Metabolic Inhibitor End: 3 take 1 tablet by mouth once methotrexate 2.5 mg tablet Take 2.5 mg by mouth one time only. 0 01/08/2023 Discontinued Comment on above: Take 2.5 mg by mouth one time only. mv-min/iron/folic/reeys cium/vitK (WOMEN'S MULTIVITAMIN ORAL) (5 sources) mv-min/iron/foli c/ca lcium/vitK (WOMEN'S MULTIVITAMIN ORAL) Take by mouth. 0 Active Comment on above: Take by mouth. tiZANidine 4 mg oral tablet (3 sources) Central alpha-2 Adrenergic Agonist Start: 0 End: 3 take 1 tablet by mouth every six hours as needed tiZANidine (ZANAFLEX) 4 mg tablet Take 1 tablet by mouth every 6 hours as needed. 30 tablet 0 09/01/2019 11/04/2022 Discontinued Comment on above: Take 1 tablet by mario th every 6 hours as needed. Problems Problem Classification Problem Date Documented Da te Episodic/Chronic Abdominal pain (9 sources) Left flank pain; Translations: [Unspecified abdominal pain] Onset: 01-08-2023 Episodic Benign neoplasm of uterus (2 sources) Uterine leiomyoma; Translations: [Leiomyoma of uterus, unspecified] Onset: 12-11-2022 Episodic Genitourinary symptoms and ill-defined conditions (2 sources) Increased frequency of urination; Translations: [Frequency of micturition] Episodic Inflammatory diseases of female pelvic organs (2 sources) Hydrosalpinx; Translations: [Chronic salpingitis] Onset: 01-08-2023 Chronic Menopausal disorders (6 sources) Menopausal flushing; Translations: [Menopausal and female climacteric states] 12-28-2024 Chronic Menstrual disorders (2 sources) Secondary oligomenorrhea; Translations: [Secondary oligomenorrhea] Onset: 11-10-2022 Chronic Mood disorders (7 sources) Premenstrual dysphoric disorder; Translations: [Premenstrual dysphoric disorder] Onset: 03-19-2015 03-19-2015 Chronic Nonmalignant breast conditions (1 source) Cyst of breast; Translations: [Solitary cyst of right breast] 01-17-2025 Episodic Other female genital disorders (1 source) Abnormal uterine bleeding; Translations: [Abnormal uterine and vaginal bleeding, unspecified] Chronic Other screening for suspected conditions (not mental disorders or infectious disease) (4 sources) Other abnormal and inconclusive findings on diagnostic imaging of breast; Translations: [Encounter for screening mammogram for malignant neoplasm of breast] Onset: 09-10-2023 Episodic Ovarian cyst (2 sources) Cyst of left ovary; Translations: [Unspecified ovarian cyst, left side] Onset: 12-11-2022 Episodic Spondylosis; intervertebral disc disorders; other back problems (6 sources) Backache; Translations: [Other dorsalgia] 07-11-2022 Episodic Results Test Name Value Interpretation Reference Range Facility Breast imaging reportOrdered By: Ana Maria Aguanunu on 01-11-2025 Study report [facility] Imaging Services [address] [place], [place] [address] SCRN MAMM (CAD)W/JESUSITA BILAT MR#: [id number] Acct: [id number] Name: BERE CENTENO Rep #: [id number] : 1980 F 44 From: La Mendoza MD PCP: Dr. Maribel Vinson MD Status: R EG CLI Study:SCRN MAMM (CAD)W/JESUSITA BILAT Date of Exa m: 01/10/25 Exam# [id number] Ordering Dr: Susan Pozo CNM EXAM: SCRN MAMM (CAD)W/JESUSITA BILAT DATE: 01/10/2025 CLINICAL HISTORY: F, Age 44 y/o , ANNUAL BREAST CANCER RISK ASSESSMENT: This is not calculated at this time. TECHNIQUE: Bilateral screening digital breast tomosynthesis with 2D and 3D images. Computeraided detection. COMPARISON: Prior exam(s) dated 09/10/2023, 05/19/2022. FINDINGS: TISSUE DENSITY: The breast tissue is composed of scattered areas of fibroglandular density. Bilateral Breast Mammographic Findings: There is an asymmetry in the central right breast at middle depth visualized on the MLO view. No significant masses, calcifications or other abnormalities are identified in the left breast. BI/SCRN MAMM (CAD)W/JESUSITA BILAT IMPRESSION: The asymmetry in the central right breast at middle depth requires further evaluation. Recommend diagnostic mammogram of the right breast and ultrasound on the day of diagnostic if indicated. OVERALL FINAL ASSESSMENT BI-RADS 0: INCOMPLETE - NEED ADDITIONAL IMAGING EVALUATION. RECOMMENDATION: Additional Views obtained/call backs A letter with findings and recommendations will be mailed to the patient. Reading Location: [facility] CC: MARIANELA Pozo; Dr. Maribel Vinson MD ~ Outpatient Coding Specialist: Signed [facility] SCRN MAMM (CAD)W/JESUSITA BILATo n 01-10-2025 SCRN MAMM (CAD)W/JESUSITA BILAT [facility] Imaging Services [address] [place], [place] [address] SCRN MAMM (CAD)W/JESUSITA BILAT MR#: [id number] Acct: [id number] Name: BERE CENTENO Rep #: [id number] : 1980 F 44 From: Ana Maria Mendoza MD PCP: Dr. Maribel Vinson MD Status: REG CLI Study: SCRN MAMM (CAD)W/JESUSITA BILAT Date of Exam: 12/25 02/17 Exam# [id number] Ordering Dr: Susan Pozo CNM EXAM: SCRN MAMM (CAD)W/JESUSITA BILAT DATE: 01/10/2025 CLINICAL HISTORY: F, Age 44 y/o , ANNUAL BREAST CANCER RISK ASSESSMENT: This is not calculated at this time. TECHNIQUE: Bilateral screening digital breast tomosynthesis with 2D and 3D images. Computer aided detection. COMPARISON: Prior exam(s) dated 09/10/2023, 05/19/2022. FINDINGS: TISSUE DENSITY: The breast tissue is composed of scattered areas of fibroglandular density. Bilateral Breast Mammographic Findings: There is an asymmetry in the central right breast at middle depth visualized on the MLO view. No significant masses, calcifications or other abnormalities are identified in the left breast. BI/SCRN MAMM (CAD)W/JESUSITA BILAT IMPRESSION: The asymmetry in the central right breast at middle depth requires further evaluation. Recommend diagnostic mammogram of the right breast and ultrasound on the day of diagnostic if indicated. OVERALL FINAL ASSESSMENT BI-RADS 0: INCOMPLETE - NEED ADDITIONAL IMAGING EVALUATION. RECOMMENDATION: Additional Views obtained/call backs A letter with findings and recommendations will be mailed to the patient. Reading Location: [id number] CC: MARIANELA Pozo; Dr. Maribel Vinson MD Outpatient Coding Specialist: Signed Normal [facility] PAP IG HPV APTIMA 16/18,45on 01-01-2025 ADEQ Comment Normal . [facility] Comment on above: Order Comment: Speci men Comment: [id number] Specimen Comment: No. of containers..01 ThinPrep Vial Result Comment: Sati sfactory for evaluation. Endocervical and/or squamous metaplastic cells (endocervical component) are present. Performed By: #### L 7400.0280 #### [facility] [address] [place], [address] COMM . Normal . [facility] Comment on above: Order Comment: Speci men Comment: [id number] Specimen Comment: No. of containers..01 ThinPrep Vial Performed By: #### L 7400.0280 #### [facility] [address] [place], [address] COMMENT Comment Normal . [facility] Comment on above: Order Comment: Speci men Comment: [id number] Specimen Comment: No. of containers..01 ThinPrep Vial Result Comment: This liquid based ThinPrep(R) pap test was screened with the use of an image guided system. Performed By: #### L 7400.0280 #### [facility] [address] [place], [address] DIAG Comment Normal . [facility] Comment on above: Order Comment: Speci men Comment: [id number] Specimen Comment: No. of containers..01 ThinPrep Vial Result Comment: NEGA TIVE FOR INTRAEPITHELIAL LESION OR MALIGNANCY. Performed By: #### L 7400.0280 #### [facility] [address] [place], [address] HPV APTIMA, HR Negative Normal Negative [facility] Comment on above: Order Comment: Speci men Comment: [id number] Specimen Comment: No. of containers..01 ThinPrep Vial Result Comment: This nucleic acid amplification test detects fourteen high- risk HPV types (16,18,31,33,35,39,45,51,52,56,58,59,66,68) without differentiation. Performed By: #### L 7400.0280 #### [facility] [address] [place], [place], [id number] HPV Rupa Rfx Comment Normal . [facility] Comment on above: Order Comment: Speci men Comment: [id number] Specimen Comment: No. of containers..01 ThinPrep Vial Result Comment: Crit eria not met, HPV Genotype not performed. Performed at: WB - [facility] [id number] Family Literacy Coordinator: Kiya Rai MD, Phone: [phone] Performed at: =G - [facility] [address] [id number] Family Literacy Coordinator: Kiya Rai MD, Phone: [phone] Performed By: #### L 7400.0280 #### [facility] [address] [place], [address] PAPSMR Comment Normal . [facility] Comment on above: Order Comment: Speci men Comment: [id number] Specimen Comment: No. of containers..01 ThinPrep Vial Result Comment: The Pap smear is a screening test designed to aid in the detection of premalignant and malignant conditions of the uterine cervix. It is not a diagnostic procedure and should not be used as the sole means of detecting cervical cancer. Both false-positive and false-negative reports do occur. Performed By: #### L 7400.0280 #### [facility] [address] [place], [place], [id number] PERFORM Comment Normal . [facility] Comment on above: Order Comment: Speci men Comment: [id number] Specimen Comment: No. of containers..01 ThinPrep Vial Result Comment: Stella Shook Master Scheduler (ASCP) Performed By: #### L 7400.0280 #### [facility] [address] [place], [place], [id number] Cervical or vaginal specimen microscopic examination by liquid based cytology (reportOrdered By: Susan Pozo on 12-28-2024 Cytology report Cyto stain.thin prep Doc (Cvx/Vag) Comment . [facility] Comment on above: Criteria not met, HP V Genotype not performed.Performed at: - [facility] [id number] Director: Kiya Rai MD, Phone: [phone] at: = - [facility] [id number] Director: Kiya Rai MD, Phone: [phone] Cervical or vagninal specime n microscopic examination by cytology stain (reported asOrdered By: Susan Pozo on 12-28-2024 Cytology report Cyto stain Doc (Cvx/Vag) Comment . [facility] Comment on above: The Pap smear is a s creening test designed to aid in thedetection of premalignant and malignant conditions of theuterine cervix. It is not a diagnostic procedure andshould not be used as the sole means of detecting cervicalcancer. Both false-positive and false-negative reports dooccur. Detection in cervical specim en of any of human papilloma virus (HPV) 16, 18, 31, 33,Ordered By: Susan Pozo on 12-28-2024 HPV 16+18+31+33+35+39+45 +51+52+56+58+59+66+6 8 DNA Probe+sig amp Ql (Cvx) Negative Negative [facility] Comment on above: This nucleic acid am plification test detects fourteen high- risk HPV types (16,18,31,33,35,39,45,51,52,56,58,59,66,68)without differentiation. Laboratory - CytologyOrdered By: Susan Pozo on 12-28-2024 Master Scheduler Cyto stain Nom (Cvx/Vag) [ID] Comment . [facility] Comment on above: Stella Shook Cytol ogceli (ASCP) Laboratory - Miscellaneous t estsOrdered By: Susan Pozo on 12-28-2024 Service comment (Unsp spec) [Interp] . . [facility] No Panel InformationOrdered By: Susan Pozo on 12-28-2024 Pap Smear Specimen Adequacy Comment . [facility] Comment on above: Satisfactory for cristóbal luation. Endocervical and/or squamous metaplasticcells (endocervical component) are present. 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 Practitioner Required: No Is patient in pain?: No Allergies cephalexin Allergy (Verified 12/28/24 10:10) Rash Sulfa (Sulfonamide Antibiotics) Allergy (Verified 12/28/24 10:10) Swelling nalbuphine (From Nubain) Adverse Reaction (Verified 12/28/24 10:10) Nausea/Vom/Diarrhea Medications ???Medication ???Instructions ???Recorded ???Confirmed ???Type sertraline 100 mg tablet (Zoloft) 100 mg PO DAILY 07/03/22 12/28/24 History biotin 500 mcg capsule 1 mg PO DAILY 01/08/23 12/28/24 Hi story ibuprofen 600 mg tablet 600 mg PO Q8H PRN Pain 01/08/23 History levonorgestrel-ethinyl estradiol 1 tab PO QDAY #84 tabs 12/28/24 Rx 0.1 mg-20 mcg tablet Is last menstrual period known: Yes Last Menstrual Period: 12/09/24 Post menopausal: No Patient : No : No Control Method: tubal PFSH Medical History Wears glasses Depression Anxiety Alcohol use Rheumatoid arthritis Anemia Back pain History of ulceration Former smoker History of stress test Surgical History Hx of decompressive lumbar laminectomy Hx of appendectomy Hx laparoscopic cholecystectomy Hx of tubal ligation Family History (Updated 12/28/24 @ 10:15 by Stephanie Sanchez) Other Cancer Depression Diabetes Heart disease High cholesterol Social History adopted: No household members: spouse housing: house number of children: 4 current occupational status: employed current occupation: [employer] pets and animals: Yes pets and animals: dog(s) and other details: tortoise history of recent travel: No sexually active: Yes Smoking Status: Former smoker second hand exposure: No alcohol intake: current alcohol intake frequency: holidays/special occasions only substance use type: does not use well-balanced diet: daily or most days caffeine: Yes Type: coffee Number of servings: 1 eating out: 1-3 times/week what type of physical activity do you participate in: walking frequency: 1-2 times per week herber/sikh: [employer] seatbelt use: always do you feel safe at home: Yes additional social history: - Donnie [facility] Encounter for routine gynecological examination Details: BERE CENTENO is a 44 year old who presents for new annual exam from [facility]. Having irregular cycles but is concerned with perimenopause. Cycles are every 2-6 months and had one episode of bleeding that lasted 2 months that was heavy with clots. Requesting information on hormone therapy. Having VMS, decreased libido and trouble sleeping. Discussed hormonal options and would like to try OCP. Last PAP: 2022 History of abnormal PAP: no Last mammogram: 2023 History of abnormal mammogram: yes. Was having mammograms q6 months for cyst on left breast. Colon cancer screening: PCP Other preventative health care screenings: PCP Female Reproductive History Last Menstrual Period: 12/09/24 Cycle Length: >35 Questions: metorrhagia: No, sexually active: Yes, dyspareunia: Yes and PCB: No Menopausal Symptoms: Yes hot flashes, Yes mood changes and Yes sleep problems ROS : Reports hot flashes Coding Level of Care Code Off vis,new,prev 40-64yrs Diagnoses Encounter for routine gynecological examination Z01.419 Perimenopausal vasomotor symptoms N95.1 Assessment and Plan Assessment and Plan (1) Encounter for routine gynecological examination: (2) Perimenopausal vasomotor symptoms: Status: Acute Plan: desires to try OCP Follow up in 3 months Orders: Orders PAP IG HPV APTIMA 16/18,45 Today SCRN MAMM (CAD)W/JESUSITA BILAT Today Medications: New levonorgestrel-ethinyl estrad 0.1-20 mg-mcg 1 TAB PO QDAY 84 tabs 3RF N95.1 - Menopausal and female climacteric states 12/28/24 1059 Date Susan Pozo CNM Cosigner Signature: Date (if applicable) CC: Normal [facility] DBT Breast - bilateral diagn ostic for implanton 09-10-2023 [facility] DIAG W JESUSITA BILon 2023 [facility] DIAG W JESUSITA KATHY * * *Final Report* * * DATE OF EXAM: Sep 10 2023 12:00AM [facility]HW 0627 - [facility] DIAG W JESUSITA KATHY / PROCEDURE REASON: R92.8 abnormal mammogram * * * * Physician Interpretation * * * * #[id number] - [facility] #[id number] - [facility] US BREAST LTD RT BILATERAL DIGITAL DIAGNOSTIC MAMMOGRAM TOMOSYNTHESIS WITH CAD: 09/10/2023 HISTORY: R92.8 Abnormal Mammogram R92.8 Abnormal Mammogram. RESULT: TECHNIQUE: The study was acquired using full field digital technology and interpreted from soft copy. Digital Breast Tomosynthesis (DBT) images were obtained and used to assist in the interpretation of this examination. Current study was also evaluated with a Computer Aided Detection (CAD). Comparison is made to exams dated: 06/24/2022 mammogram, 05/19/2022 mammogram, and 10/03/2020 mammogram - [facility]. There are scattered areas of fibroglandular density. There are stable grouped heterogeneous calcifications in the right breast at 10 o'clock middle depth. No other significant masses, calcifications, or other findings are seen in either breast. IMPRESSION: PROBABLY BENIGN - SHORT TERM INTERVAL FOLLOW-UP RECOMMENDED There is no mammographic abnormality seen in the right breast to correspond with the pain; however, further workup with ultrasound is recommended. The stable grouped heterogeneous calcifications in the right breast are probably benign. A follow-up mammogram in 6 months is recommended. LIMITED ULTRASOUND OF RIGHT BREAST: 09/10/2023 RESULT: Comparison is made to exams dated: 06/24/2022 mammogram, 05/19/2022 mammogram, and 10/03/2020 mammogram - [facility]. Ultrasound of the right breast 12 o'clock region was performed. There is no sonographic correlate for the area of pain around 12 o'clock 6 cm from the nipple. IMPRESSION: BENIGN FINDING There is no sonographic correlate for the area of pain around 12 o'clock 6 cm from the nipple. Further management should be based on clinical assessment. There is no sonographic evidence of malignancy. A follow up mammogram in 6 month is recommended to demonstrate continued stability of the calcifications present on the mammogram. A follow-up right mammogram in 6 months is recommended to demonstrate stability. Daysi lu/aries:09/10/2023 12:01:04 Multiple national specialty organizations have released breast cancer screening guidelines for women at average risk for developing breast cancer - guidelines that are based on both evidence and opinion, yet differ on when to start and how often to screen for breast cancer. With representation from Breast Imaging, Internal Medicine, Women's Health, Family Medicine, and Medical/Surgical Oncology, the [facility] has carefully reviewed the data and reached the following consensus: 1) All women should engage in shared decision-making with their providers to decide when to start and how often to screen; 2) All women should have the opportunity to start screening mammography at age 40; 3) For women ages 45-55, we recommend annual screening mammograms; 4) For women ages 55 and over, we support both the transition from an annual to a biennial interval if this aligns more with patient's values and preferences, or continuation with annual screening; 5) All women should discuss with their providers when to stop screening mammograms. Regulatory Affairs Portfolio Leader(s): Olimpia Davis, [facility] ; Marce Lancaster, [facility] OVERALL STUDY BIRADS: 3 Probably benign finding - short term interval follow-up recommended Outpatient Coding Specialist: Aries Transcribe Date/Time: Sep 10 2023 10:03A Dictated by : DAYSI VICKERS MD This examination was interpreted and the report reviewed and electronically signed by: DAYSI VICKERS MD on Sep 10 2023 12:46PM EST [id number] Normal [facility] US BREAST LTD RTon 09-10 [facility] US BREAST LTD RT * * *Final Report* * * DATE OF EXAM: Sep 10 2023 11:57AM RHW [id number] - [facility] US BREAST LTD RT / PROCEDURE REASON: R92.8 abnormal mammogram * * * * Physician Interpretation * * * * #[id number] - [facility] DIAG W JESUSITA KATHY #[id number] - [facility] US BREAST LTD RT BILATERAL DIGITAL DIAGNOSTIC MAMMOGRAM TOMOSYNTHESIS WITH CAD: 09/10/2023 HISTORY: R92.8 Abnormal Mammogram R92.8 Abnormal Mammogram. RESULT: TECHNIQUE: The study was acquired using full field digital technology and interpreted from soft copy. Digital Breast Tomosynthesis (DBT) images were obtained and used to assist in the interpretation of this examination. Current study was also evaluated with a Computer Aided Detection (CAD). Comparison is made to exams dated: 06/24/2022 mammogram, 05/19/2022 mammogram, and 10/03/2020 mammogram - [facility]. There are scattered areas of fibroglandular density. There are stable grouped heterogeneous calcifications in the right breast at 10 o'clock middle depth. No other significant masses, calcifications, or other findings are seen in either breast. IMPRESSION: PROBABLY BENIGN - SHORT TERM INTERVAL FOLLOW-UP RECOMMENDED There is no mammographic abnormality seen in the right breast to correspond with the pain; however, further workup with ultrasound is recommended. The stable grouped heterogeneous calcifications in the right breast are probably benign. A follow-up mammogram in 6 months is recommended. LIMITED ULTRASOUND OF RIGHT BREAST: 09/10/2023 RESULT: Comparison is made to exams dated: 06/24/2022 mammogram, 05/19/2022 mammogram, and 10/03/2020 mammogram - [facility]. Ultrasound of the right breast 12 o'clock region was performed. There is no sonographic correlate for the area of pain around 12 o'clock 6 cm from the nipple. IMPRESSION: BENIGN FINDING There is no sonographic correlate for the area of pain around 12 o'clock 6 cm from the nipple. Further management should be based on clinical assessment. There is no sonographic evidence of malignancy. A follow up mammogram in 6 month is recommended to demonstrate continued stability of the calcifications present on the mammogram. A follow-up right mammogram in 6 months is recommended to demonstrate stability. Daysi lu/aries:09/10/2023 12:01:04 Multiple national specialty organizations have released breast cancer screening guidelines for women at average risk for developing breast cancer - guidelines that are based on both evidence and opinion, yet differ on when to start and how often to screen for breast cancer. With representation from Breast Imaging, Internal Medicine, Women's Health, Family Medicine, and Medical/Surgical Oncology, the [facility] has carefully reviewed the data and reached the following consensus: 1) All women should engage in shared decision-making with their providers to decide when to start and how often to screen; 2) All women should have the opportunity to start screening mammography at age 40; 3) For women ages 45-55, we recommend annual screening mammograms; 4) For women ages 55 and over, we support both the transition from an annual to a biennial interval if this aligns more with patient's values and preferences, or continuation with annual screening; 5) All women should discuss with their providers when to stop screening mammograms. Regulatory Affairs Portfolio Leader(s): Olimpia Davis, [facility] ; Marce Lancaster, [facility] OVERALL STUDY BIRADS: 3 Probably benign finding - short term interval follow-up recommended Outpatient Coding Specialist: Aries Transcribe Date/Time: Sep 10 2023 10:03A Dictated by : DAYSI VICKERS MD This examination was interpreted and the report reviewed and electronically signed by: DAYSI VICKERS MD on Sep 10 2023 12:01PM EST [id number] Normal [facility] US Breast - right limitedon 09-10-2023 [facility] CNPJennifer 01-28-2023 CNPN Telephone (OBGYWM) -- TARYNBERE ([id number]) 1980 F Date Time Provider Department 01/28/23 ROBYN PEARCE During your visit today, we recorded the following information about you: Robyn Hartman MD 01/28/2023 8:23 AM Signed Notify patient of benign pathology from bilateral tubes- shows hydrosalpinx and paratubal cysts. No post op needed unless concerns. Fabiana Gomez LPN 01/28/2023 8:50 AM Signed Spoke with pt and results given. Pt has no further questions or concerns. Fabiana Gomez LPN Allergies As of Date: 01/28/2023 Noted Allergy Reaction KEFLEX (CEPHALEXIN) 03/19/2015 4 - Hives 9 - Itching NUBAIN (NALBUPHINE) 03/19/2015 4 - Hives 9 - Itching SULFA (SULFONAMIDE ANTIBIOTICS) 08/12/2018 4 - Hives Date Reviewed: 01/08/2023 Reviewed by: Leonarda Jack Ma - Fully Assessed Reason for Visit: Results [95] Prescriptions as of 01/28/2023 - levonorgestrel (MIRENA) 21 mcg/24 hours (8 yrs) 52 mg IUD 1 Each by INTRAUTERINE route as directed. - mv-min/iron/folic/calcium/ vitK (WOMEN'S MULTIVITAMIN ORAL) Take by mouth. - ibuprofen (MOTRIN) 600 mg tablet Take 1 tablet by mouth every 6 hours as needed. FOR PAIN. - sertraline (ZOLOFT) 100 mg tablet Take 150 mg by mouth once daily. Problem List As Of Date 01/28/2023 Noted Resolved PMDD (premenstrual dysphoric disorder) [F32.81] 03/19/2015 Encounter Status:Closed by FABIANA GOMEZ LPN on 01/28/23 Normal [facility] Laboratory - Chemistry and C hemistry - challengeOrdered By: Candelario Hartman on 01-15-2023 HCG ( test) Ql (U) Negative [facility] Comment on above: Very dilute urine sp ecimens, as indicated by a low specificgravity, may not contain it sales representative levels of hCG. If is still suspected, a first morning urinespecimen should be collected 48 hours later and tested. Basophil percentageOrdered B y: Dr. Dumas on 01-13-2023 WBC (Bld) [#/Vol] 6.3 10*3/uL 4.4-11.0 [facility] Blood erythrocytes count (nu mber/volume)Ordered By: Dr. Dumas on 01-13-2023 RBC (Bld) [#/Vol] 4.38 10*6/uL 4.2-5.4 [facility] Blood hemoglobin measurement (mass/volume)Ordered By: Dr. Dumas on 01-13-2023 Hemoglobin (Bld) [Mass/Vol] 14.4 g/dL 12.0-15.[address] [facility] Blood platelet mean volumeOr dered By: Dr. Dumas on 01-13-2023 Platelet mean volume (Bld) [Entitic vol] 9.2 fL 6.2-12.[address] [facility] Determination of erythrocyte mean corpuscular volume (MCV)Ordered By: Dr. Dumas on 01-13-2023 MCV (RBC) [Entitic vol] 92.5 fL 81-[address] [facility] Hematocrit Auto (Bld) [Volum e fraction]Ordered By: Dr. Dumas on 01-13-2023 Hematocrit (Bld) [Volume fraction] 40.5 % 37-[address] [facility] Laboratory - Hematology and Cell countsOrdered By: Dr. Dumas on 01-13-2023 Erythrocyte distribution width (RBC) [Entitic vol] 44.7 fL 35.1-43.[address] [facility] Erythrocyte distribution width (RBC) [Ratio] 14.6 % 11.6-14.[address] [facility] MCH (RBC) [Entitic mass] 32.9 pg 27.0-32.[address] [facility] MCHC Auto (RBC) [Mass/Vol]Or dered By: Dr. Dumas on 01-13-2023 MCHC (RBC) [Mass/Vol] 35.6 g/dL 32-[address] [facility] Platelets bldOrdered By: Dr. Dumas on 01-13-2023 Platelets (Bld) [#/Vol] 196 10*3/uL 150-[address] [facility] CNOVon 01-08-2023 CNOV Office Visit (OBGYWM ) -- BERE CENTENO ([id number]) 1980 F Date Time Provider Department 01/08/23 2:50 PM ROBYN PEARCE OBVITA During your visit today, we recorded the following information about you: Blood pressure Weight Last Period 120/80 79.4 kg 11/28/22 Robyn Hartman MD 01/08/2023 4:08 PM Signed Pre-Op History and Physical HPI: The patient is a 42 year old female presenting for pre-operative visit. She is scheduled for laparoscopic bilateral salpingectomy, for pelvic pain, left hydrosalpinx on 01/15/2023. Procedure discussed along with risks, benefits and complications. Other alternatives discussed for management. Consent form signed? Yes. PAST MEDICAL HISTORY Diagnosis Date Rheumatoid arteritis (HCC) PAST SURGICAL HISTORY Procedure Laterality Date APPENDECTOMY 04/2010 CHOLECYSTECTOMY 2004 PAST SURGICAL HISTORY OF 10/08 back surgery on L4 and 5 TUBAL LIGATION HX 1999 Current Outpatient Medications Medication Sig Dispense Refill levonorgestrel (MIRENA) 21 mcg/24 hours (8 yrs) 52 mg IUD 1 Each by INTRAUTERINE route as directed. 1 Each 0 mv-min/iron/folic/calcium/ vitK (WOMEN'S MULTIVITAMIN ORAL) Take by mouth. ibuprofen (MOTRIN) 600 mg tablet Take 1 tablet by mouth every 6 hours as needed. FOR PAIN. 60 tablet 1 sertraline (ZOLOFT) 100 mg tablet Take 150 mg by mouth once daily. No current facility-administered medications for this visit. ALLERGIES: Keflex [Cephalexin], Nubain [Nalbuphine], and Sulfa (Sulfonamide Antibiotics) PERSONAL HISTORY: Social History Tobacco Use Smoking status: Former Years: 10.00 Types: Cigarettes Start date: 03/19/2009 Smokeless tobacco: Never Substance Use Topics Alcohol use: Yes Comment: Rare Drug use: No FAMILY HISTORY: FAMILY HISTORY Problem Relation Age of Onset Heart Mother 2 stents Hyperlipidemia Mother Hypertension Mother REVIEW OF SYMPTOMS: negative except as noted above PHYSICAL EXAMINATION: VITALS: Blood pressure 120/80, weight 175 lb (79.4 kg), last menstrual period 11/28/2022. GENERAL: The patient is well nourished, well hydrated in no acute distress. , The patient is oriented to time, place, and person. LUNGS: Clear to auscultation bilaterally. no wheezes, rhonchi or rales HEART: Regular rate and rhythm, Normal heart sounds, and No murmurs or gallops Neck: full range of motion IMPRESSION: 42-year-old female with left lower quadrant intermittent pain, left hydrosalpinx PLAN: Laparoscopic bilateral salpingectomy Pt has been counseled on risks/benefits and alternatives of surgery including but not limited to anesthesia, bleeding, infection, injury to pelvic structures including bowel, bladder, ureters and vessels. Pt wishes to proceed with surgery at this time. Patient has a history of a tubal ligation. She does not desire further childbearing capabilities. IUD is already in place. Pre and postop procedures reviewed I have reviewed and updated past medical and surgical history, medications and allergies MD Robyn Wills MD 01/08/2023 4:08 PM Signed Allergies As of Date: 01/08/2023 Noted Allergy Reaction KEFLEX (CEPHALEXIN) 03/19/2015 4 - Hives 9 - Itching NUBAIN (NALBUPHINE) 03/19/2015 4 - Hives 9 - Itching SULFA (SULFONAMIDE ANTIBIOTICS) 08/12/2018 4 - Hives Date Reviewed: 01/08/2023 Reviewed by: Leonarda Jack Ma - Fully Assessed Reason for Visit: Pre-Op Visit [1235] Primary Visit Diagnosis:Hydrosalpinx [N70.11] Other Visit Diagnoses:Pelvic pain in female [R10.2] Pre-op exam [Z01.818] Prescriptions as of 01/08/2023 - levonorgestrel (MIRENA) 21 mcg/24 hours (8 yrs) 52 mg IUD 1 Each by INTRAUTERINE route as directed. - mv-min/iron/folic/calcium/ vitK (WOMEN'S MULTIVITAMIN ORAL) Take by mouth. - ibuprofen (MOTRIN) 600 mg tablet Take 1 tablet by mouth every 6 hours as needed. FOR PAIN. - sertraline (ZOLOFT) 100 mg tablet Take 150 mg by mouth once daily. Problem List As Of Date 01/08/2023 Noted Resolved PMDD (premenstrual dysphoric disorder) [F32.81] 03/19/2015 Medications Discontinued During This Encounter Prescriptions - celecoxib (CELEBREX) 200 mg capsule (Discontinued) Take 200 mg by mouth twice daily. - gabapentin (NEURONTIN) 300 mg capsule (Discontinued) Take by mouth. - methotrexate 2.5 mg tablet (Discontinued) Take 2.5 mg by mouth one time only. - buspirone HCl (BUSPAR ORAL) (Discontinued) Take 15 mg by mouth three times daily. - folic acid 1 mg tablet (Discontinued) Take 1 mg by mouth once daily. Encounter Status:Closed by ROBYN YANG on 01/08/23 [facility] HISTORY PHYSICALon HISTORY PHYSICAL HNO ID: [id number] Author: Robyn Yang MD Service: ? Author Type: Physician Type: HANDP Filed: 01/08/2023 4:08 PM Note Text: Pre-Op History and Physical HPI: The patient is a 42 year old female presenting for pre-operative visit. She is scheduled for laparoscopic bilateral salpingectomy, for pelvic pain, left hydrosalpinx on 01/15/2023. Procedure discussed along with risks, benefits and complications. Other alternatives discussed for management. Consent form signed? Yes. PAST MEDICAL HISTORY Diagnosis Date Rheumatoid arteritis (HCC) PAST SURGICAL HISTORY Procedure Laterality Date APPENDECTOMY 04/2010 CHOLECYSTECTOMY 2004 PAST SURGICAL HISTORY OF 10/08 back surgery on L4 and 5 TUBAL LIGATION HX 1999 Current Outpatient Medications Medication Sig Dispense Refill levonorgestrel (MIRENA) 21 mcg/24 hours (8 yrs) 52 mg IUD 1 Each by INTRAUTERINE route as directed. 1 Each 0 mv-min/iron/folic/calcium/ vitK (WOMEN'S MULTIVITAMIN ORAL) Take by mouth. ibuprofen (MOTRIN) 600 mg tablet Take 1 tablet by mouth every 6 hours as needed. FOR PAIN. 60 tablet 1 sertraline (ZOLOFT) 100 mg tablet Take 150 mg by mouth once daily. No current facility-administered medications for this visit. ALLERGIES: Keflex [Cephalexin], Nubain [Nalbuphine], and Sulfa (Sulfonamide Antibiotics) PERSONAL HISTORY: Social History Tobacco Use Smoking status: Former Years: 10.00 Types: Cigarettes Start date: 03/19/2009 Smokeless tobacco: Never Substance Use Topics Alcohol use: Yes Comment: Rare Drug use: No FAMILY HISTORY: FAMILY HISTORY Problem Relation Age of Onset Heart Mother 2 stents Hyperlipidemia Mother Hypertension Mother REVIEW OF SYMPTOMS: negative except as noted above PHYSICAL EXAMINATION: VITALS: Blood pressure 120/80, weight 175 lb (79.4 kg), last menstrual period 11/28/2022. GENERAL: The patient is well nourished, well hydrated in no acute distress. , The patient is oriented to time, place, and person. LUNGS: Clear to auscultation bilaterally. no wheezes, rhonchi or rales HEART: Regular rate and rhythm, Normal heart sounds, and No murmurs or gallops Neck: full range of motion IMPRESSION: 42-year-old female with left lower quadrant intermittent pain, left hydrosalpinx PLAN: Laparoscopic bilateral salpingectomy Pt has been counseled on risks/benefits and alternatives of surgery including but not limited to anesthesia, bleeding, infection, injury to pelvic structures including bowel, bladder, ureters and vessels. Pt wishes to proceed with surgery at this time. Patient has a history of a tubal ligation. She does not desire further childbearing capabilities. IUD is already in place. Pre and postop procedures reviewed I have reviewed and updated past medical and surgical history, medications and allergies Robyn Yang MD [facility] 12-18-2022 YEYO Telephone (OBGYWM) -- BERE CENTENO ([id number]) 1980 F Date Time Provider Department 12/18/22 ROBYN PEARCE During your visit today, we recorded the following information about you: Aleah Steward LPN 12/18/2022 11:08 AM Signed Left message to call office. Next available surgery date is 01/15/2023. Patient will need a pre-operative appointment with Dr. Yang scheduled Aleah Setward LPN 12/23/2022 11:06 AM Signed Next available surgery dates at [facility] are 01/15/23, 01/30/23, 02/05/23 Fabiana Gomez LPN 12/23/2022 1:35 PM Signed Pt returned call and stated that she would take 01/15/23 for a surgery date. Pt was also scheduled for a pre op appointment on 01/08/23. Fabiana Gomez LPN' Allergies As of Date: 12/18/2022 Noted Allergy Reaction KEFLEX (CEPHALEXIN) 03/19/2015 4 - Hives 9 - Itching NUBAIN (NALBUPHINE) 03/19/2015 4 - Hives 9 - Itching SULFA (SULFONAMIDE ANTIBIOTICS) 08/12/2018 4 - Hives Date Reviewed: 11/17/2022 Reviewed by: Leonarda Jack Ma - Fully Assessed Reason for Visit: Schedule Surgery [1330] Prescriptions as of 01/06/2023 - levonorgestrel (MIRENA) 21 mcg/24 hours (8 yrs) 52 mg IUD 1 Each by INTRAUTERINE route as directed. - celecoxib (CELEBREX) 200 mg capsule Take 200 mg by mouth twice daily. - gabapentin (NEURONTIN) 300 mg capsule Take by mouth. - mv-min/iron/folic/calcium/ vitK (WOMEN'S MULTIVITAMIN ORAL) Take by mouth. - ibuprofen (MOTRIN) 600 mg tablet Take 1 tablet by mouth every 6 hours as needed. FOR PAIN. - methotrexate 2.5 mg tablet Take 2.5 mg by mouth one time only. - buspirone HCl (BUSPAR ORAL) Take 15 mg by mouth three times daily. - folic acid 1 mg tablet Take 1 mg by mouth once daily. - sertraline (ZOLOFT) 100 mg tablet Take 150 mg by mouth once daily. Problem List As Of Date 12/18/2022 Noted Resolved PMDD (premenstrual dysphoric disorder) [F32.81] 03/19/2015 Encounter Status:Closed by ALEAH STEWARD LPN on [facility]/06/23 [facility]OBGYWM[facility] -- BERE CENTENO ([id number]) 1980 F Date Time Provider Department 12/15/22 ROBYN PEARCE During your visit today, we recorded the following information about you: Margie Daley RN 12/15/2022 9:16 AM Signed ----- Message from Robyn Yang MD sent at 12/15/2022 9:09 AM EDT ----- Please notify patient that overall her pelvic ultrasound is normal. Her IUD is in the proper location. No ovarian cyst is noted. There is a possible small left hydrosalpinx appreciated which is just some fluid in her tube. If she having any left-sided pain still? Sometimes this can be seen after tubal ligation. Ultrasound shows a possible polyp however she is not having any heavy bleeding she is actually having minimal to no bleeding/oligomenorrhea hence why the IUD was placed to protect her endometrium. Margie Daley RN 12/15/2022 9:22 AM Signed Patient notified and voiced understanding of results below. Patient states she is still having left sided pain. Pain is a constant ache in her upper left quadrant with occasional cramping. On a bad day patient rates pain at a 5/10. She does take Aleve and it lessens the pain, but does not completley take it away. Per patient she is ok with continuing to monitor it unless you have further advice. Margie Hartman MD 12/15/2022 1:26 PM Signed If she wants to continue to monitor that is fine- at some point if the pain gets worse or stays persistent we may want to consider removing both tubes as that small hydrosalpinx might be source of her pain. Margie Daley RN 12/15/2022 2:08 PM Signed Patient notified and voiced understanding of below information. Patient states she thought about it and would rather just proceed with surgery to remove the tube instead of waiting for the pain to get worse. Surgery sheet to DM. Patient aware transportation technician will be in contact with her. FYI. Margie Hartman MD 12/15/2022 2:42 PM Signed Noted. OR booking sheet filled out Allergies As of Date: 12/15/2022 Noted Allergy Reaction KEFLEX (CEPHALEXIN) 03/19/2015 4 - Hives 9 - Itching NUBAIN (NALBUPHINE) 03/19/2015 4 - Hives 9 - Itching SULFA (SULFONAMIDE ANTIBIOTICS) 08/12/2018 4 - Hives Date Reviewed: 11/17/2022 Reviewed by: Leonarda Jack Ma - Fully Assessed Reason for Visit: Results [95] Cmt: Prescriptions as of 12/15/2022 - levonorgestrel (MIRENA) 21 mcg/24 hours (8 yrs) 52 mg IUD 1 Each by INTRAUTERINE route as directed. - celecoxib (CELEBREX) 200 mg capsule Take 200 mg by mouth twice daily. - gabapentin (NEURONTIN) 300 mg capsule Take by mouth. - mv-min/iron/folic/calcium/ vitK (WOMEN'S MULTIVITAMIN ORAL) Take by mouth. - ibuprofen (MOTRIN) 600 mg tablet Take 1 tablet by mouth every 6 hours as needed. FOR PAIN. - methotrexate 2.5 mg tablet Take 2.5 mg by mouth one time only. - buspirone HCl (BUSPAR ORAL) Take 15 mg by mouth three times daily. - folic acid 1 mg tablet Take 1 mg by mouth once daily. - sertraline (ZOLOFT) 100 mg tablet Take 150 mg by mouth once daily. Problem List As Of Date 12/15/2022 Noted Resolved PMDD (premenstrual dysphoric disorder) [F32.81] 03/19/2015 Encounter Status:Closed by MARGIE DALEY RN on 12/15/22 [facility] CNOVon 11-17-2022 CNOV Office Visit (OBGYWM ) -- BERE CENTENO ([id number]) 1980 F Date Time Provider Department 11/17/22 2:00 PM ROBYN PEARCE OBGYWM During your visit today, we recorded the following information about you: Blood pressure Weight Last Period 122/80 77.6 kg 04/03/22 Robyn Hartman MD 11/17/2022 4:00 PM Signed Tool And Die Manager offered: Patient declines. Bere is a 42 year old who presents today for an endometrial biopsy for abnormal uterine bleeding, oligomenorrhea- labs wnl tesosterone still pending . test: negative UNIVERSAL PROTOCOL / SAFETY CHECKLIST Procedure to be Performed: EMB and Mirena IUD insertion Sign In: A Moment of CARE was completed. Personnel directly involved with the procedure wore the appropriate PPE (Personal Protective Equipment). Patient/Surrogate Stated/Verified: PATIENT VERIFIED(optional for EMERGENT procedures): Patient name, Date of , Relevant allergies, and The intended procedure Time Out Communication: Intended patient and procedure match the source documents. Consent documented and matches the intended procedure. Sign Out: SIGN OUT (optional for EMERGENT procedures): All specimen containers correctly labeled. PROCEDURE: EXTERNAL GENITALIA: Normal in appearance without lesions VAGINA: Normal in appearance without lesions BIOPSY: Speculum placed into the vagina with excellent visualization of the cervix. Cervix cleaned with betadine. Anterior lip of cervix grasped with single toothed tenaculum. Cervix stenotic - dilators used. Uterus sounded to 6.5 cm. Pipelle inserted into the uterus without difficulty and endometrial biopsy obtained. Specimen labeled and sent to pathology. Hemostasis achieved. Procedure Summary: Patient tolerated procedure well. ASSESSMENT: abnormal uterine bleeding, Oligomenorrhea PLAN: Specimens labeled and sent to Pathology. Will notify patient of results in 1-2 weeks. Jeannette Merritt presents today for IUD insertion for menstrual dysfunction. Patient's last menstrual period was 03/27/2022. GC/chlamydia: Not done: no risk factors and/or patient declines screening test: negative Side effects including irregular bleeding were discussed with the patient. The patient understands that it should be removed in 8 years or sooner if the patient desires a . IUD source: office provided IUD lot #: [id number] Exp date: 05/2024 [employer] / SAFETY CHECKLIST Procedure to be Performed: EMB and mirena iud insertion Sign In: A Moment of CARE was completed. Personnel directly involved with the procedure wore the appropriate PPE (Personal Protective Equipment). Patient/Surrogate Stated/Verified: PATIENT VERIFIED(optional for EMERGENT procedures): Patient name, Date of , Relevant allergies, and The intended procedure Time Out Communication: Intended patient and procedure match the source documents. Consent documented and matches the intended procedure. Sign Out: SIGN OUT (optional for EMERGENT procedures): No specimen collected. EMB specimen labeled The cervix was prepped with betadine. The uterus sounded to 6.5 cm and the uterus is Midposition.. Using sterile technique, the Mirena IUD was inserted after the cervix was dilated and the string was cut to 2cm from the external os of the cervix. Patient tolerated procedure well. PLAN: Patient was advised to observe for signs and symptoms of infection including but not limited to fever, malodorous vaginal discharge and/or pain. The patient was told to check the string monthly for accurate placement. Bleeding expectations were reviewed. Limited bedside ultrasound done to confirm proper placement due to difficult placement - cervical stenosis. Follow up in one month. Rationale for Mirena IUD- labs do not support menopausal status- concerned with excess estrogen and no anovulation - pt agreeable to continue. MD Leonarda Merritt Ma 11/17/2022 1:51 PM Addendum YOUR RECOVERY After your biopsy you may have: Vaginal bleeding (less than a normal menstrual period) Mild cramping Do NOT put anything in the vagina for 1 week after your endometrial biopsy. This includes: tampons douches and refraining from having sexual intercourse If you have any discomfort, you may take an over the counter pain medication (motrin, advil, ibuprofen, tylenol, etc). If this does not relieve your discomfort, contact the office. It is okay to wear a sanitary pad until the discharge and spotting stops. RISKS Although problems seldom occur with endometrial biopsies, there can be some complications. You may feel faint during and shortly after the procedure as well as have some bleeding after the procedure. There is also a risk of infection after the procedure. These complications are rare and can be (more content not included)... Normal [facility] SURGICAL PATHOLOGYon 023 CASE REPORT Normal [facility] Comment on above: Order Comment: Speci men Type: TISSUE SPECIMENOrdering Facility: [facility] Address: [address] [place] [address] Result Comment: Surg ica Pathology Report Case: [id number] Authorizing Provider: Robyn Yang, Collected: 11/17/2022 03:58 PM Ordering Location: OB/Gynecology Received: 11/17/2022 05:04 PM Pathologist: Alessandro Su MD, PhD Specimen: ENDOMETRIUM BIOPSY Performed By: #### S ####[facility] [id number] [address] CLINICAL HISTORY oligomenorrhea Normal [facility] Comment on above: Order Comment: Speci men Type: TISSUE SPECIMENOrdering Facility: [facility] Address: [address] [place] [address] Performed By: #### S ####[facility] [id number] [address] FINAL DIAGNOSIS Normal [facility] Comment on above: Order Comment: Speci men Type: TISSUE SPECIMENOrdering Facility: [facility] Address: [address] [place] [address] Result Comment: A. E ndometrium, biopsy: - Disordered proliferative endometrium. Performed By: #### S ####[facility] LABCLIA [id number] [address] OF [facility] FINAL PERFORMING LAB Normal [facility] Comment on above: Order Comment: Speci men Type: TISSUE SPECIMENOrdering Facility: [facility] Address: [address] [place] [address] Result Comment: Diag nostic interpretation performed at [facility], [address] [place] [address] CLIA# [id number] Maintenance Helper: Ole Garibay M.D. Performed By: #### S ####[facility] LABIA [id number] [address] OF [facility] GROSS DESCRIPTION Normal [facility] Comment on above: Order Comment: Speci men Type: TISSUE SPECIMENOrdering Facility: [facility] Address: [address] [place] [address] Result Comment: A. E NDOMETRIUM BIOPSY Received in formalin are multiple phelps-pink to red-brown soft feathery segments of tissue admixed with hemorrhagic and mucinous material aggregating to 2.5 x 1.7 x 0.2 cm. Totally submitted in one cassette. Gross examination performed at [facility], [address] [place] [address] JT 11/18/2022 4:21 AM Performed By: #### S ####[facility] LABIA [id number] [address] OF [place] Estradiol [facility] 11-10 E2 [Mass/Vol] 136 pg/mL Normal [facility] Comment on above: Order Comment: Speci men Type: BLOOD SPECIMENOrdering Facility: [facility] Address: [address] [place] [address] Result Comment: This test is not suitable for patients receiving treatment with the drug Fulvestrant (Faslodex). The drug causes an interference leading to falsely elevated estradiol results. Menstrual cycle Estradiol reference ranges: Follicular : < 234 pg/mL Ovulation : 41 to 398 pg/mL Luteal : < 342 pg/mL Estradiol reference ranges vary by gestational period: First trimester : 154 to 3243 pg/mL Second trimester : 1561 to 41395 pg/mL Third trimester : 8285 to >97349 pg/mL Post-menopausal Estradiol reference range: < 41 pg/mL Reference: 1. Estradiol - E2 (Estradiol III) [package insert V 3.0 Mongolian]. Allison Urbful, [place], [place], December 2015. Performed By: #### 2 243-4, 2842-3 ####[facility] LABCLIA [id number] [place] [address] [place] Prolactin SerPl-mCncon 11-10 Prolactin [Mass/Vol] 16.1 ng/mL Normal 4.5-26.8 [facility] Comment on above: Order Comment: Speci men Type: BLOOD SPECIMENOrdering Facility: [facility] Address: [address] [place] [address] Result Comment: Prol actin test is performed using the [employer] Electrochemiluminescence Immunoassay method. Results obtained with different methods or kits cannot be used interchangeably. Performed By: #### 2 243-4, 2842-3 ####[facility] LABCLIA [id number] [address] [place] TESTOSTERONE, FREE AND TOTAL on 11-10-2022 TESTOSTERONE, FREE, S 0.29 ng/dL Normal <0.13-0.98 [facility] Comment on above: Order Comment: Speci men Type: BLOOD SPECIMENOrdering Facility: [facility] Address: [address] [address] Result Comment: ADDITIONAL INFORMATION This test was developed and its performance characteristics determined by [facility] in a manner consistent with CLIA requirements. This test has not been cleared or approved by the U.S. Food and Drug Administration. Performed By: #### T FTEST ####[facility] LABCLIA [id number] [place] [address] TESTOSTERONE, TOTAL, S 13 ng/dL Normal 8-60 [facility] Comment on above: Order Comment: Speci men Type: BLOOD SPECIMENOrdering Facility: [facility] Address: [address], [place] [address] Result Comment: ADDITIONAL INFORMATION Testing performed by Liquid Chromatography-Tandem Mass Spectrometry (LC-MS/MS). This test was developed and its performance characteristics determined by [facility] in a manner consistent with CLIA requirements. This test has not been cleared or approved by the U.S. Food and Drug Administration. Test Performed by: [facility] - [address] [address] Family Literacy Coordinator: Julian Billy M.D. Ph.D.; CLIA# [id number] Performed By: #### T FTEST ####[facility] LABCLIA [id number] [place] [address] CNOVon 11-04-2022 CNOV Office Visit (OBGYWM ) -- DAVISBERE BRYANT ([id number]) 1980 F Date Time Provider Department 11/04/22 8:40 AM ROBYN PEARCE During your visit today, we recorded the following information about you: Blood pressure Weight Last Period 120/76 78 kg 03/27/22 Robyn Hartman MD 11/04/2022 11:36 AM Signed Tool And Die Manager offered: Patient declines. Beremiriam Gunnarlinstevo is a 42 year old female who presents for Pelvic pain. Pt reports for years has been having pelvic pain but over past few months has been having more pain on left side. Pt reports has not had a menses since March 2022. Patient reports that her primary care physician ran some labs but is unsure why she is not having menses. Patient states she was not sure if she had polycystic ovarian syndrome in the past. Patient reports she feels like she is going to get her menses but nothing ever starts. Patient states prior to her March menses it was months before that that she had her last one. She denies any hot flashes or night sweats. She denies any unwanted facial hair. Patient reports that the pain is worse on the left side it is a constant aching pain. The pain can flareup and be severe. She denies any changes with her bowel habits. She does states she has urinary frequency but is unable to fully empty her bladder. She denies any significant pain with intercourse. She denies any vaginal odors or discharge. Patient states she previously saw a urologist because they thought maybe she had stones that was negative. She states that the urologist never did a cystoscopy to evaluate inside the bladder. Patient denies any nausea or vomiting with her pain. She currently uses tubal ligation for control. Patient offers no other concerns at this time. OB History T4 L4 SAB0 IAB0 Ectopic0 Multiple0 Live Births4 Surgical Sales Representative History LMP: 12/08/2019, Having periods Age at Menarche: Age at First : Age at Menopause: Surgical Sales Representative History Comments: Sexual Activity: Yes; Male Contraception: Tubal Ligation PAST MEDICAL HISTORY Diagnosis Date Rheumatoid arteritis (HCC) PAST SURGICAL HISTORY Procedure Laterality Date APPENDECTOMY 04/2010 PAST SURGICAL HISTORY OF 13 back surgery on L4 and 5 REMOVAL GALLBLADDER 2004 TUBAL LIGATION HX 1999 FAMILY HISTORY Problem Relation Age of Onset Heart Mother 2 stents Hyperlipidemia Mother Hypertension Mother Social History Tobacco Use Smoking status: Former Years: 10.00 Types: Cigarettes Start date: 03/19/2009 Smokeless tobacco: Never Substance Use Topics Alcohol use: Yes Comment: Rare Drug use: No Current Outpatient Medications Medication Sig celecoxib (CELEBREX) 200 mg capsule Take 200 mg by mouth twice daily. gabapentin (NEURONTIN) 300 mg capsule Take by mouth. mv-min/iron/folic/calcium/ vitK (WOMEN'S MULTIVITAMIN ORAL) Take by mouth. ibuprofen (MOTRIN) 600 mg tablet Take 1 tablet by mouth every 6 hours as needed. FOR PAIN. sertraline (ZOLOFT) 100 mg tablet Take 150 mg by mouth once daily. methotrexate 2.5 mg tablet Take 2.5 mg by mouth one time only. buspirone HCl (BUSPAR ORAL) Take 15 mg by mouth three times daily. folic acid 1 mg tablet Take 1 mg by mouth once daily. No current facility-administered medications for this visit. Allergies As of Date: 11/04/2022 Allergen Noted Reaction KEFLEX [CEPHALEXIN] 03/19/2015 Hives and Itching NUBAIN [NALBUPHINE] 03/19/2015 Hives and Itching SULFA (SULFONAMIDE ANTIBIOTICS) 08/12/2018 Hives Fully Assessed 10/03/2020 REVIEW OF SYSTEMS Abdomen: No bloating, early satiety, indigestion, or increased flatulence. No abdominal pain, nausea, vomiting, diarrhea, or constipation. Bladder: frequency and urgency. Breast: No breast lumps, nipple d/c, overlying skin changes, redness or skin retraction. Expanded ROS: no fever Allergies and current medication updated:Yes EXAM: BP 120/76 Wt 172 lb (78.0kg) LMP 03/27/2022 GENERAL: pleasant, female in no apparent distress HEENT: Normocephalic, atraumatic, mucus membranes moist, and no lesions NECK: full range of motion DERMATOLOGY: Normal, without lesions, non-icteric, and non-hirsute ABDOMEN: soft, non-tender, and no masses PELVIC: external genitalia normal, normal Bartholin's glands, urethra, Lehr's glands, no vulvar lesions, good vaginal support, normal appearing perineal body and perianal region BIMANUAL: uterus normal size, shape and consistency, no adnexal masses, Moderate tenderness, and bladder tender to palpation. Uterus freely mobile NEURO: alert and oriented x3,exam grossly non-focal EXTREMITIES: normal ASSESSMENT AND PLAN: Encounter Diagnosis ICD-10-CM 1. 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 Normal [facility] UA DIP, URINE (POC)on 2022 BILIRUBIN UA (POCT) Negative Negative [facility] CLARITY UA (POCT) Clear [facility] COLOR UA (POCT) Yellow [facility] GLUCOSE UA (POCT) Negative Negative mg/dL [facility] HEMOGLOBIN/BLOOD UA (POCT) Negative Negative [facility] KETONE UA (POCT) Negative Negative mg/dL [facility] LEUKOCYTES UA (POCT) Negative [facility] NITRITE UA (POCT) Negative Negative [facility] PH UA (POCT) 6.0 4.5 - 8.0 [facility] Protein Ql (U) Negative Negative mg/dL [facility] SPECIFIC GRAVITY UA (POCT) 1.025 1.005 - 1.030 [facility] UROBILINOGEN UA (POCT) 0.2 E.U./dL Normal E.U./dL [facility] FSH SerPl-aCncon 10-16-2022 Follitropin Qn 7.6 m[IU]/mL Normal See comment [facility] Comment on above: Order Comment: Speci men Type: BLOOD SPECIMENOrdering Facility: [facility] Address: [address] [place] [address] Result Comment: Refe rence range: Follicular: 3.5-12.5 mIU/mL Ovulation: 4.7-21.5 mIU/mL Luteal: 1.7-7.7 mIU/mL Postmenopausal: 25.8-134.8 mIU/mL Performed By: #### 1 1572-5, 70060-5, 37287-5 ####[facility] LABIA [id number] [place] [address] [place] Nuclear Ab IA Ql (S)on 10-16 MILAD BY EIA, QUAL Negative Normal Negative [facility] Comment on above: Order Comment: Speci men Type: BLOOD SPECIMENOrdering Facility: [facility] Address: [address] [place] [address] Result Comment: The qualitative antinuclear antibody screen test performed using enzyme immunoassay including the following antigens: dsDNA, histones, SS-A, SS-B, Sm, Sm/AUTOMATIC TOE LASTER, Scl-70, Sharita-1, and centromeric antigens. Performed By: #### 1 1572-5, 26607-4, 16074-9 ####[facility] LABCLIA [id number] [place] [address] [place] Rheumatoid fact SerPl-aCncon 10-16-2022 Rheumatoid factor Qn 12 [IU]/mL Normal <16 [facility] Comment on above: Order Comment: Speci men Type: BLOOD SPECIMENOrdering Facility: [facility] Address: [address] [place] [address] Performed By: #### 1 1572-5, 15628-7, 78880-9 ####[facility] LABCLIA [id number] [place] [address] [place] Absolute lymphocyte counton 07-03-2022 Lymphocytes Auto (Unsp spec) [#/Vol] 1.14 10*3/uL 0.83-4.[address] [facility] Work Phone: Basophil percentageon 2021 Basophil percentage 0 SEEN /hpf 0-5 [facility] Work Phone: Basophils/100 WBC (Bld) 0.2 % 0-[address] [facility] Work Phone: [phone] Chloride [Moles/Vol] 106 mmol/L 98-107 [facility] Work Phone: Eosinophils/100 WBC (Bld) 1.2 % 0-[address] [facility] Work Phone: Glucose [Mass/Vol] 94 mg/dL 74-106 [facility] Work Phone: Neutrophils (Bld) [#/Vol] 4.1 10*3/uL 2.0-7.[address] [facility] Work Phone: Neutrophils/100 WBC (Bld) 70.4 % 47-[address] [facility] Work Phone: Potassium [Moles/Vol] 3.7 mmol/L 3.5-5.[address] [facility] Work Phone: Sodium [Moles/Vol] 139 mmol/L 136-145 [facility] Work Phone: WBC (Bld) [#/Vol] 5.8 10*3/uL 4.4-11.0 [facility]: Bilirubin Test strip Ql (U)o n 07-03-2022 Bilirubin Ql (U) Negative Negative [facility] Work Phone: Blood erythrocytes count (nu mber/volume)on 07-03-2022 RBC (Bld) [#/Vol] 4.86 10*6/uL 4.2-5.4 [facility] Work Phone: Blood hemoglobin measurement (mass/volume)on 07-03-2022 Hemoglobin (Bld) [Mass/Vol] 15.1 g/dL 12.0-15.[address] [facility] Work Phone: Blood lymphocytes/100 leukoc yteson 07-03-2022 Lymphocytes/100 WBC (Bld) 19.7 % 19-[address] [facility] Work Phone: Blood monocytes/100 leukocyt eson 07-03-2022 Monocytes/100 WBC (Bld) 8.0 % 0-[address] [facility] Work Phone: Blood platelet mean volumeon 07-03-2022 Platelet mean volume (Bld) [Entitic vol] 9.3 fL 6.2-12.[address] [facility] Work Phone: Determination of erythrocyte mean corpuscular volume (MCV)on 07-03-2022 MCV (RBC) [Entitic vol] 89.5 fL 81-[address] [facility] Work Phone: Hematocrit Auto (Bld) [Volum e fraction]on 07-03-2022 Hematocrit (Bld) [Volume fraction] 43.5 % 37-[address] [facility] Work Phone: Ketones Test strip Ql (U)on 07-03-2022 Ketones Ql (U) 5 mg/dl Negative [facility] Work Phone: Laboratory - Chemistry and C hemistry - challengeon 07-03-2022 CO2 [Moles/Vol] 24.0 mmol/L 21.0-32.[address] [facility] Work Phone: Urea nitrogen/Creatinine [Mass ratio] 19.3 mg/mg 10-[address] [facility] Work Phone: Laboratory - Hematology and Cell countson 07-03-2022 Erythrocyte distribution width (RBC) [Entitic vol] 42.6 fL 35.1-43.[address] [facility] Work Phone: Erythrocyte distribution width (RBC) [Ratio] 13.2 % 11.6-14.[address] [facility] Work Phone: Immature granulocytes/100 WBC (Bld) 0.500 % 0.0-0.[address] [facility] Work Phone: Comment on above: IG% - Immature Granu locytes (promyelocytes, myelocytes and metamyelocytes) > 1% indicates that a LEFT SHIFT is Present. MCH (RBC) [Entitic mass] 31.1 pg 27.0-32.[address] [facility] Work Phone: Nucleated RBC/100 WBC (Bld) [Ratio] 0 % 0-[address] [facility] Work Phone: MCHC Auto (RBC) [Mass/Vol]on 07-03-2022 MCHC (RBC) [Mass/Vol] 34.7 g/dL 32-[address] [facility] Work Phone: Mucus LM Ql (Urine sed)on Mucus Ql (Urine sed) 0 SEEN /hpf [facility] Work Phone: Nitrite Test strip Ql (U)on 07-03-2022 Nitrite Ql (U) Negative Negative [facility] Work Phone: No Panel Informationon 07-03 Estimated Creatinine Clearance Calc 76.14 ml/min [facility] Work Phone: Estimated GFR (MDRD) Amer 103 mL/min >[address] [facility] Work Phone: Comment on above: GFR Calc Estimated GFR (MDRD) Non-Af Amer 85 mL/min >[address] [facility] Work Phone: Comment on above: Non- GFR Calc Platelets bldon 07-03-2022 Platelets (Bld) [#/Vol] 159 10*3/uL 150-[address] [facility] Work Phone: Protein Test strip Ql (U)on 07-03-2022 Protein Ql (U) Negative Negative [facility] Work Phone: Serum or plasma calcium radames urement (mass/volume)on 07-03-2022 Calcium [Mass/Vol] 9.0 mg/dL 8.5-10.1 [facility] Work Phone: Serum or plasma creatinine m easurement (mass/volume)on 07-03-2022 Creatinine [Mass/Vol] 0.78 mg/dL 0.55-1.[address] [facility] Work Phone: Comment on above: The validity of the calculated GFR & GFRAA in patients over 70 years has not been determined. Clinical correlation is essential. Serum or plasma urea nitroge n measurement (mass/volume)on 07-03-2022 Urea nitrogen [Mass/Vol] 15 mg/dL 7-[address] [facility] Work Phone: Squamous epithelial cells de tection in urine sediment by light microscopyon 07-03-2022 Epithelial cells.squamous LM Ql (Urine sed) 0-5 SEEN /hpf 5-[address] [facility] Work Phone: Thin prep Papanicolaou smear with manual screeningon 07-03-2022 Thin prep Papanicolaou smear with manual screening 9 5-[address] [facility] Work Phone: Urine blood detectionon RBC Ql (U) Negative Negative [facility] Work Phone: RBC Ql (U) 0 SEEN /hpf 0-[address] [facility] Work Phone: Urine clarityon 07-03-2022 Clarity (U) Clear Clear [facility] Work Phone: Urine color determinationon 12-08-2022 Color (U) Yellow Yellow [facility] Work Phone: Urine glucose detectionon Glucose Ql (U) Normal mg/dl Normal [facility] Work Phone: Urine leukocyte esterase det ection by dipstickon 07-03-2022 Leukocyte esterase Test strip Ql (U) Negative Negative [facility] Work Phone: Urine pHon 07-03-2022 pH (U) 6.5 [pH] 5.0 - 8.[address] [facility] [address] [facility] [facility] Work Phone: Urine sediment bacteria coun t by microscopy (number/high power field)on 07-03-2022 Bacteria LM.HPF (Urine sed) [#/Area] 0 /[HPF] None Seen [facility] Work Phone: Urine specific gravity measu rementon 07-03-2022 Specific gravity (U) [Rel density] 1.010 1.002-1.[address] [facility] Work Phone: Urobilinogen Auto test strip Ql (U)on 07-03-2022 Urobilinogen Ql (U) Normal mg/dl Normal [facility] Work Phone: [facility] DIAG W JESUSITA RTon 06-24- 022 [facility] W JESUSITA RT * * *Final Report* * * DATE OF EXAM: Jun 24 2022 2:21PM WRW [id number] - [facility] DIAG W JESUSITA RT / PROCEDURE REASON: abnormal mammogram right/call back right * * * * Physician Interpretation * * * * RESULT: #[id number] - [facility] DIAG W JESUSITA RT #[id number] - [facility] US BREAST LTD RT UNILATERAL RIGHT DIGITAL DIAGNOSTIC MAMMOGRAM TOMOSYNTHESIS WITH CAD: 06/24/2022 HISTORY: Abnormal Mammogram Right/Call Back Right /priors available for comparison Abnormal Mammogram Right. RESULT: TECHNIQUE: The study was acquired using full field digital technology and interpreted from soft copy. Digital Breast Tomosynthesis (DBT) images were obtained and used to assist in the interpretation of this examination. Current study was also evaluated with a Computer Aided Detection (CAD). Comparison is made to exams dated: 05/19/2022 mammogram, 10/03/2020 mammogram - [facility], 01/24/2020 mammogram - [facility], 01/10/2020 mammogram, 01/10/2020 mammogram, and 01/10/2020 mammogram - [facility]. The tissue of right breast is heterogeneously dense. This may lower the sensitivity of mammography. There are a grouped heterogeneous calcifications in the right breast middle depth central to the nipple seen on the mediolateral oblique view only. There also is a 1.2 cm asymmetry in the right breast middle depth superior region seen on the mediolateral oblique view only. The asymmetry is seen best on MLO jesusita view 23. No other significant masses or calcifications are seen in the breast. IMPRESSION: PROBABLY BENIGN - SHORT TERM INTERVAL FOLLOW-UP RECOMMENDED The grouped heterogeneous calcifications in the right breast middle depth central to the nipple seen on the mediolateral oblique view only are probably benign. The 1.2 cm asymmetry in the right breast middle depth superior region seen on the mediolateral oblique view only is probably benign. LIMITED ULTRASOUND OF RIGHT BREAST: 06/24/2022 RESULT: Comparison is made to exams dated: 05/19/2022 mammogram, 10/03/2020 mammogram - [facility], 01/24/2020 mammogram - [facility], 01/10/2020 mammogram, 01/10/2020 mammogram, and 01/10/2020 mammogram - [facility]. Real-time ultrasound of the right breast upper outer quadrant was performed. Bean scale images of the real-time examination were reviewed. IMPRESSION: PROBABLY BENIGN - SHORT TERM INTERVAL FOLLOW-UP RECOMMENDED There is no abnormality seen in the right breast to correspond with the mammographic density. A follow-up mammogram in 6 months is recommended to demonstrate stability. Pamela murphy/aries:06/24/2022 14:58:17 Multiple national specialty organizations have released breast cancer screening guidelines for women at average risk for developing breast cancer - guidelines that are based on both evidence and opinion, yet differ on when to start and how often to screen for breast cancer. With representation from Breast Imaging, Internal Medicine, Women's Health, Family Medicine, and Medical/Surgical Oncology, the [facility] has carefully reviewed the data and reached the following consensus: 1) All women should engage in shared decision-making with their providers to decide when to start and how often to screen; 2) All women should have the opportunity to start screening mammography at age 40; 3) For women ages 45-55, we recommend annual screening mammograms; 4) For women ages 55 and over, we support both the transition from an annual to a biennial interval if this aligns more with patient's values and preferences, or continuation with annual screening; 5) All women should discuss with their providers when to stop screening mammograms. Regulatory Affairs Portfolio Leader(s): Calli Siegel, RT(R)(M), [facility]; Zari Abreu, [facility] OVERALL STUDY BIRADS: 3 Probably benign finding - short term interval follow-up recommended Outpatient Coding Specialist: Aries Transcribe Date/Time: Jun 24 2022 2:11P Dictated by: PAMELA ANDREWS MD This examination was interpreted and the report reviewed and electronically signed by: PAMELA ANDREWS MD on Jun 24 2022 2:58PM EST [id number] Normal [facility] [employer] BREAST LTD RTon 06-24 [facility] [employer] BREAST LTD RT * * *Final Report* * * DATE OF EXAM: Jun 24 2022 2:52PM WRU [id number] - [facility] [employer] BRE[employer] RT / PROCEDURE REASON: abnormal mammogram right * * * * Physician Interpretation * * * * #[id number] - [facility] DIAG W JESUSITA RT #[id number] - [facility] [employer] BREAST INTER[employer] RT UNILATERAL RIGHT DIGITAL DIAGNOSTIC MAMMOGRAM TOMOSYNTHESIS WITH CAD: 06/24/2022 HISTORY: Abnormal Mammogram Right/Call Back Right /priors available for comparison Abnormal Mammogram Right. RESULT: TECHNIQUE: The study was acquired using full field digital technology and interpreted from soft copy. Digital Breast Tomosynthesis (DBT) images were obtained and used to assist in the interpretation of this examination. Current study was also evaluated with a Computer Aided Detection (CAD). Comparison is made to exams dated: 05/19/2022 mammogram, 10/03/2020 mammogram - [facility], 01/24/2020 mammogram - [facility], 01/10/2020 mammogram, 01/10/2020 mammogram, and 01/10/2020 mammogram - [facility]. The tissue of right breast is heterogeneously dense. This may lower the sensitivity of mammography. There are a grouped heterogeneous calcifications in the right breast middle depth central to the nipple seen on the mediolateral oblique view only. There also is a 1.2 cm asymmetry in the right breast middle depth superior region seen on the mediolateral oblique view only. The asymmetry is seen best on MLO jesusita view 23. No other significant masses or calcifications are seen in the breast. IMPRESSION: PROBABLY BENIGN - SHORT TERM INTERVAL FOLLOW-UP RECOMMENDED The grouped heterogeneous calcifications in the right breast middle depth central to the nipple seen on the mediolateral oblique view only are probably benign. The 1.2 cm asymmetry in the right breast middle depth superior region seen on the mediolateral oblique view only is probably benign. LIMITED ULTRASOUND OF RIGHT BREAST: 06/24/2022 RESULT: Comparison is made to exams dated: 05/19/2022 mammogram, 10/03/2020 mammogram - [facility], 01/24/2020 mammogram - [facility], 01/10/2020 mammogram, 01/10/2020 mammogram, and 01/10/2020 mammogram - [facility]. Real-time ultrasound of the right breast upper outer quadrant was performed. Bean scale images of the real-time examination were reviewed. IMPRESSION: PROBABLY BENIGN - SHORT TERM INTERVAL FOLLOW-UP RECOMMENDED There is no abnormality seen in the right breast to correspond with the mammographic density. A follow-up mammogram in 6 months is recommended to demonstrate stability. Pamela murphy/aries:06/24/2022 14:58:17 Multiple national specialty organizations have released breast cancer screening guidelines for women at average risk for developing breast cancer - guidelines that are based on both evidence and opinion, yet differ on when to start and how often to screen for breast cancer. With representation from Breast Imaging, Internal Medicine, Women's Health, Family Medicine, and Medical/Surgical Oncology, the [facility] has carefully reviewed the data and reached the following consensus: 1) All women should engage in shared decision-making with their providers to decide when to start and how often to screen; 2) All women should have the opportunity to start screening mammography at age 40; 3) For women ages 45-55, we recommend annual screening mammograms; 4) For women ages 55 and over, we support both the transition from an annual to a biennial interval if this aligns more with patient's values and preferences, or continuation with annual screening; 5) All women should discuss with their providers when to stop screening mammograms. Regulatory Affairs Portfolio Leader(s): RT Chuck(R)(M), [facility]; Zari Abreu, [facility] OVERALL STUDY BIRADS: 3 Probably benign finding - short term interval follow-up recommended Outpatient Coding Specialist: Aries Transcribe Date/Time: Jun 24 2022 2:11P Dictated by : PAMELA ANDREWS MD This examination was interpreted and the report reviewed and electronically signed by: PAMELA ANDREWS MD on Jun 24 2022 2:58PM EST [id number] Normal [facility] CNCOon 05-20-2022 CNCO HNO ID: [id number] Author: Mammography Coordinator Service: ? Author Type: Physician Type: Letter Filed: 05/21/2022 11:36 PM Note Text: May 20, 2022 PID: [id number] [place] [address] Dear Ms. Centeno, Your recent breast imaging exam on 05/19/2022 showed a possible finding that requires additional imaging studies for a complete evaluation. Most such findings are probably benign (not cancer). Your mammogram demonstrates that you have dense breast tissue, which could hide abnormalities. Dense breast tissue, in and of itself, is a relatively common condition. Therefore, this information is not provided to cause undue concern; rather, it is to raise your awareness and promote discussion with your health care provider regarding the presence of dense breast tissue in addition to other risk factors. If you have a healthcare provider who ordered/prescribed your screening mammogram: Please call [phone] or EXT: [phone] to schedule an appointment for your additional imaging (if you have not already done so). If you DO NOT have a healthcare provider (ie you did not have an order/prescription for your screening mammogram): Please call to schedule an appointment for your additional imaging (if you have not already done so). You must have an order/prescription from your physician when calling to schedule your appointment. If your order/prescription is not electronic, you must bring the hard copy with you on the day of your exam to avoid delays. Your imaging studies and reports are kept on file at [facility] as part of your permanent medical record, and are available for your continuing care. Thank you for allowing us to help in meeting your health care needs. Sincerely, Dr. Gupta Interpreting Radiologist [facility] (Additional imaging) Normal [facility] SCREENING W TOMOon 05-19 [facility] SCREENING W JESUSITA * * *Final Report* * * DATE OF EXAM: May 19 2022 1:23PM WRW 0582 - [facility] SCREENING W JESUSITA / PROCEDURE REASON: Screening * * * * Physician Interpretation * * * * RESULT: #[id number] - [facility] SCREENING W JESUSITA BILATERAL DIGITAL SCREENING MAMMOGRAM TOMOSYNTHESIS WITH CAD: 05/19/2022 HISTORY: / SEE TECH NOTE /Screening /Screening Mammogram with JESUSITA - patient reports NO breast symptoms /priors available for comparisonFocal pain lateral breast x 2 weeks. RESULT: TECHNIQUE: The study was acquired using full field digital technology and interpreted from soft copy. Digital Breast Tomosynthesis (DBT) images were obtained and used to assist in the interpretation of this examination. Current study was also evaluated with a Computer Aided Detection (CAD). Comparison is made to exams dated: 10/03/2020 mammogram - [facility], 01/24/2020 mammogram - [facility], 01/10/2020 mammogram, 01/10/2020 mammogram, 01/10/2020 mammogram, and 12/26/2019 mammogram - [facility]. The tissue of both breasts is heterogeneously dense. This may lower the sensitivity of mammography. There is an asymmetry with calcifications in the right breast upper outer aspect anterior depth. No other significant masses, calcifications, or other findings are seen in either breast. IMPRESSION: INCOMPLETE: NEEDS ADDITIONAL IMAGING EVALUATION The asymmetry in the right breast is indeterminate. 3D imaging, magnification, and additional views are recommended. There is no abnormality seen in the right breast to correspond with the pain in the posterior depth in the upper outer quadrant, however, ultrasound is recommended. Rama hatch/aries:05/20/2022 09:54:23 Regulatory Affairs Portfolio Leader(s): RT Chuck(R)(M), [facility] letter sent: Additional Imaging Needed Mammogram BI-RADS: 0 Incomplete: needs additional imaging evaluation If this report indicates you need additional imaging, and it has NOT yet been performed, please call , to schedule. We sincerely thank you for choosing the [facility] for your breast imaging needs. Multiple national specialty organizations have released breast cancer screening guidelines for women at average risk for developing breast cancer - guidelines that are based on both evidence and opinion, yet differ on when to start and how often to screen for breast cancer. With representation from Breast Imaging, Internal Medicine, Women's Health, Family Medicine, and Medical/Surgical Oncology, the [facility] has carefully reviewed the data and reached the following consensus: 1) All women should engage in shared decision-making with their providers to decide when to start and how often to screen; 2) All women should have the opportunity to start screening mammography at age 40; 3) For women ages 45-55, we recommend annual screening mammograms; 4) For women ages 55 and over, we support both the transition from an annual to a biennial interval if this aligns more with patient's values and preferences, or continuation with annual screening; 5) All women should discuss with their providers when to stop screening mammograms. Outpatient Coding Specialist: Aries Transcribe Date/Time: May 19 2022 1:09P Dictated by: RAMA GUPTA MD This examination was interpreted and the report reviewed and electronically signed by: RAMA GUPTA MD on May 20 2022 9:54AM EST [id number] Normal [facility] Mikal 05-06-2022 ALEYDAN Telephone (GENSWS) -- BERE CENTENO ([id number]) 1980 F Date Time Provider Department 05/06/22 HILDA ENGLISH During your visit today, we recorded the following information about you: October Julio Cesar 05/06/2022 10:01 AM Signed Patient called to schedule yearly mammogram but is experiencing R breast pain. Please place appropriate order and call patient to schedule. Stephanie Alfaro LPN 05/06/2022 12:52 PM Signed Patient is to f/u with primary care physician, per Dr English last office note. Spoke to patient states pcp Dr Sheela Huizar to fax over a referral today. Stephanie Alfaro LPN 05/06/2022 1:10 PM Signed Referral was received given to Jazmine to schedule patient. Allergies As of Date: 05/06/2022 Noted Allergy Reaction KEFLEX (CEPHALEXIN) 03/19/2015 4 - Hives 9 - Itching NUBAIN (NALBUPHINE) 03/19/2015 4 - Hives 9 - Itching SULFA (SULFONAMIDE ANTIBIOTICS) 08/12/2018 4 - Hives Date Reviewed: 10/03/2020 Reviewed by: Moni Gilman LPN - Fully Assessed Reason for Visit: Orders [681] Prescriptions as of 05/06/2022 - Drospirenone-Ethinyl Estradiol (GIANVI, 28,) 3-0.02 mg per tablet Take one active pill continuously x 3 months - ibuprofen (MOTRIN) 600 mg tablet Take 1 tablet by mouth every 6 hours as needed. FOR PAIN. - tiZANidine (ZANAFLEX) 4 mg tablet Take 1 tablet by mouth every 6 hours as needed. - methotrexate 2.5 mg tablet Take 2.5 mg by mouth one time only. - buspirone HCl (BUSPAR ORAL) Take 15 mg by mouth three times daily. - folic acid 1 mg tablet Take 1 mg by mouth once daily. - sertraline (ZOLOFT) 100 mg tablet Take 150 mg by mouth once daily. Problem List As Of Date 05/06/2022 Noted Resolved PMDD (premenstrual dysphoric disorder) [F32.81] 03/19/2015 Encounter Status:Closed by STEPHANIE ALFARO on 05/06/22 [facility], URINE, ROUTINEon CULTURE, URINE, ROUTINE SEE NOTE Normal [facility] Comment on above: Result Comment: CULTURE, URINE, ROUTINE Micro Number: [id number] Test Status: Final Specimen Source: Urine, clean catch Specimen Quality: Adequate Result: No Growth Performed By: #### 3 [id number] #### [facility] [address], [address] [place] [address] Foreclosure Paralegal: Jerzy Dowell MD [facility] DIAGNOSTIC LTon 01-24-20 [facility] DIAGNOSTIC LT Final Report SEE BOTTOM OF REPORT FOR ADDENDED TEXT DATE OF EXAM: Jan 24 2020 8:35AM AAW 06 - [facility] DIAGNOSTIC LT / PROCEDURE REASON: Abnormal ultrasound of breast Physician Interpretation FINAL REPORT #[id number] - [facility] US BIOPSY BREAST LT #[id number] - [facility] DIAGNOSTIC LT ULTRASOUND GUIDED BIOPSY LEFT BREAST WITH MARKING DEVICE INSERTED AND POST DIGITAL MAMMOGRAPHIC AND ULTRASOUND IMAGIN01/24/2020 HISTORY: Abnormal Ultrasound Of Breast/ Patient presents for an ultrasound guided biopsy of the left breast. Abnormal Ultrasound Of Breast\ Post breast local wire placement. PATIENT CONSENT: A time out was performed immediately prior to procedure start with the nursing and radiology team, correctly identifying the patient name, date of , procedure, anatomy (including marking of site and side), patient position, relevant diagnostic and radiology test results, safety precautions, and procedure-specific equipment needs. The procedure was explained to the patient including the risks, benefits and alternatives. Medications were also reviewed. The risks, including but not limited to infection and bleeding, were reviewed by the performing physician and the patient agreed to undergo the procedure. Dr. Chau and a research food technologist were present throughout the entire procedure. Audible Time Out Time: 0900 Procedure Start Time: 09 Procedure Stop Time: 09 Dr. Chau performed the entire procedure without an special education assistant. PROCEDURE: Correlation is made to exams dated: 01/10/2020 mammogram, 12/26/2019 mammogram, 01/10/2020 mammogram, 01/10/2020 mammogram, and 01/10/2020 ultrasound - [facility]. An ultrasound guided biopsy using real-time ultrasound was performed for the concerning mass located in the left breast at 3 o'clock middle depth. This was described on the previous mammography and ultrasound reports. The skin was prepped in the usual manner. Local anesthetic was administered to the access site. A skin fidelina was made in the breast. The abnormality was approached from the lateral aspect. A 14 gauge biopsy needle was placed adjacent to the abnormality under ultrasound guidance. Once the needle was documented to be in the correct location, four cores were obtained using a BARD biopsy device. A ribbon clip was inserted into the biopsy cavity. A skin closure strip and a sterile dressing were applied to the access site. Post procedure digital mammographic and ultrasound imaging demonstrates the location device at the targeted area. The specimens were sent to the laboratory for pathological analysis. IMPRESSION: ULTRASOUND GUIDED BIOPSY BENIGN Ultrasound guided biopsy of the mass in the left breast at 3 o'clock middle depth was successful with no apparent post procedure complications. Pathology indicates benign fibroadenoma (FA). Pathology results are concordant with imaging findings. Return to annual mammogram screening schedule is recommended. SUMMARY: Pathology results are as follows: FINAL DIAGNOSIS: BREAST, LEFT, 3 O'CLOCK 3 CM FROM NIPPLE, BIOPSY - FIBROADENOMA. The patient is under the care of Dr. Hilda English for the above results and clinical follow up. Routine annual follow up is recommended. Fabiana shay/aries:01/30/2020 08:31:40 Regulatory Affairs Portfolio Leader(s): Jenna Vicente RDMS, [facility]; RT Allie(R)(M), [facility] Multiple national specialty organizations have released breast cancer screening guidelines for women at average risk for developing breast cancer - guidelines that are based on both evidence and opinion, yet differ on when to start and how often to screen for breast cancer. With representation from Breast Imaging, Internal Medicine, Women's Health, Family Medicine, and Medical/Surgical Oncology, the [facility] has carefully reviewed the data and reached the following consensus: 1) All women should engage in shared decision-making with their providers to decide when to start and how often to screen; 2) All women should have the opportunity to start screening mammography at age 40; 3) For women ages 45-55, we recommend annual screening mammograms; 4) For women ages 55 and over, we support both the transition from an annual to a biennial interval if this aligns more with patient's values and preferences, or continuation with annual screening; 5) All women should discuss with their providers when to stop screening mammograms. Outpatient Coding Specialist: Aries Transcribe Date/Time: Jan 24 2020 8:35A Dictated by : FABIANA CHAU MD This examination was interpreted and the report reviewed and electronically signed by: FABIANA CHAU MD on Jan 24 2020 9:30AM EST This document has been addended by: FABIANA CHAU MD on Jan 30 2020 8:31AM EST Normal [facility] US BIOPSY BREAST LTon [facility] US BIOPSY BREAST LT Final Report SEE BOTTOM OF REPORT FOR ADDENDED TEXT DATE OF EXAM: Jan 24 2020 9:08AM AAW 0597 - [facility] US BIOPSY BREAST LT / PROCEDURE REASON: Abnormal ultrasound of breast Physician Interpretation FINAL REPORT #[id number] - [facility] US BIOPSY BREAST LT #[id number] - [facility] DIAGNOSTIC LT ULTRASOUND GUIDED BIOPSY LEFT BREAST WITH MARKING DEVICE INSERTED AND POST DIGITAL MAMMOGRAPHIC AND ULTRASOUND IMAGIN01/24/2020 HISTORY: Abnormal Ultrasound Of Breast/ Patient presents for an ultrasound guided biopsy of the left breast. Abnormal Ultrasound Of Breast\ Post breast local wire placement. PATIENT CONSENT: A time out was performed immediately prior to procedure start with the nursing and radiology team, correctly identifying the patient name, date of , procedure, anatomy (including marking of site and side), patient position, relevant diagnostic and radiology test results, safety precautions, and procedure-specific equipment needs. The procedure was explained to the patient including the risks, benefits and alternatives. Medications were also reviewed. The risks, including but not limited to infection and bleeding, were reviewed by the performing physician and the patient agreed to undergo the procedure. Dr. Chau and a research food technologist were present throughout the entire procedure. Audible Time Out Time: 09 Procedure Start Time: 901 Procedure Stop Time: 905 Dr. Chau performed the entire procedure without an special education assistant. PROCEDURE: Correlation is made to exams dated: 01/10/2020 mammogram, 12/26/2019 mammogram, 01/10/2020 mammogram, 01/10/2020 mammogram, and 01/10/2020 ultrasound - [facility]. An ultrasound guided biopsy using real-time ultrasound was performed for the concerning mass located in the left breast at 3 o'clock middle depth. This was described on the previous mammography and ultrasound reports. The skin was prepped in the usual manner. Local anesthetic was administered to the access site. A skin fidelina was made in the breast. The abnormality was approached from the lateral aspect. A 14 gauge biopsy needle was placed adjacent to the abnormality under ultrasound guidance. Once the needle was documented to be in the correct location, four cores were obtained using a BARD biopsy device. A ribbon clip was inserted into the biopsy cavity. A skin closure strip and a sterile dressing were applied to the access site. Post procedure digital mammographic and ultrasound imaging demonstrates the location device at the targeted area. The specimens were sent to the laboratory for pathological analysis. IMPRESSION: ULTRASOUND GUIDED BIOPSY BENIGN Ultrasound guided biopsy of the mass in the left breast at 3 o'clock middle depth was successful with no apparent post procedure complications. Pathology indicates benign fibroadenoma (FA). Pathology results are concordant with imaging findings. Return to annual mammogram screening schedule is recommended. SUMMARY: Pathology results are as follows: FINAL DIAGNOSIS: BREAST, LEFT, 3 O'CLOCK 3 CM FROM NIPPLE, BIOPSY - FIBROADENOMA. The patient is under the care of Dr. Hilda English for the above results and clinical follow up. Routine annual follow up is recommended. Fabiana shay/aries:01/30/2020 08:31:40 Regulatory Affairs Portfolio Leader(s): Jenna Vicente RDMS, [facility]; RT Allie(R)(M), [facility] Multiple national specialty organizations have released breast cancer screening guidelines for women at average risk for developing breast cancer - guidelines that are based on both evidence and opinion, yet differ on when to start and how often to screen for breast cancer. With representation from Breast Imaging, Internal Medicine, Women's Health, Family Medicine, and Medical/Surgical Oncology, the [facility] has carefully reviewed the data and reached the following consensus: 1) All women should engage in shared decision-making with their providers to decide when to start and how often to screen; 2) All women should have the opportunity to start screening mammography at age 40; 3) For women ages 45-55, we recommend annual screening mammograms; 4) For women ages 55 and over, we support both the transition from an annual to a biennial interval if this aligns more with patient's values and preferences, or continuation with annual screening; 5) All women should discuss with their providers when to stop screening mammograms. Outpatient Coding Specialist: Aries Transcribe Date/Time: Jan 24 2020 8:35A Dictated by : FABIANA CHAU MD This examination was interpreted and the report reviewed and electronically signed by: FABIANA CHAU MD on Jan 24 2020 9:30AM EST This document has been addended by: FABIANA CHAU MD on Jan 30 2020 8:31AM EST Normal [facility] Surgical Tissue Examon 01-23 Surgical Tissue Exam Test performed at [place] [address] NAME: BERE CENTENO REQUESTING: HILDA ENGLISH MD COPY TO: FABIANA CHAU; [facility] RAD[facility] FINAL DIAGNOSIS: BREAST, LEFT, 3 O'CLOCK 3 CM FROM NIPPLE, BIOPSY - FIBROADENOMA. OPERATIVE PROCEDURE: Left breast ultrasound guided core biopsy CLINICAL INFORMATION: Left breast mass/ 3 o'clock 3 cm FN, obtained 9:03 a.m., formalin 9:04 a.m., clip: Ribbon - low suspicion mass - r/o fibroadenoma GROSS DESCRIPTION: Left breast biopsy Received in formalin labeled left breast are three phepls, round, soft fibroadipose tissue cores ranging from 1.2 to 1.8 cm in length with a thickness of 0.2 cm. Totally submitted in 1 cassette. The specimen is removed from the patient at 9:03 on 01/24/20 and placed in formalin at 9:04 on 01/24/20. RSA/pkp COURTNEY FLORES M.D.,PATHOLOGIST (Electronic signature on file) Signed out: 01/25/2020 14:40 PRINTED: 01/25/2020 Page 1 of 1 Normal [facility] Comment on above: Performed By: #### S URG #### [place] [address] TB by QuantiFERON *OUTSIDE U SE ONLY*on 12-27-2019 Interpretation TBNEG Normal [facility] Reference Lab Comment on above: Performed By: #### I NTPGP #### [facility] [employer] Immunology [address] [place] [address] Mitogen minus Nil >10 Normal [facility] Reference Lab Comment on above: Performed By: #### I NTPGP #### [facility] Immunology [address] [place] [id number] TB NIL 0.03 IU/mL Normal [facility] Reference Lab Comment on above: Performed By: #### I NTPGP #### [facility] Immunology [address] [place] [address] TB Result NEGAT Normal Negative [facility] Reference Lab Comment on above: Performed By: #### I NTPGP #### [facility] Immunology [address] [place] [phone] TB1 Ag minus Nil 0.00 IU/mL Normal <0.35 [facility] Reference Lab Comment on above: Performed By: #### I NTPGP #### [facility] Immunology [address] [place] [phone] TB2 Ag minus Nil 0.00 IU/mL Normal <0.35 [facility] Reference Lab Comment on above: Performed By: #### I NTPGP #### [facility] Immunology [address] [place] [phone] CCP Antibody, IgGon 12-23-19 20 CCP Antibody, IgG <15 Normal <20 [facility] Reference Lab Comment on above: Performed By: #### R F #### [facility] Routine Lab [address] [place] [phone] #### CCP #### [facility] Immunology [address] [place] [phone] Rheumatoid Factoron 12-23-19 20 Rheumatoid Factor <10 Normal <16 [facility] Reference Lab Comment on above: Performed By: #### R F #### [facility] Routine Lab [address] [place] [phone] #### CCP #### [facility] Immunology [address] [place] [phone] Vital Signs Date Time Vital Sign Value Performing Clinician Laury isabel 12-28-2024 10:[id number] Body height 157.48 cm [employer] Work Phone: [facility] 12-28-2024 10:09-0400 Body mass index (BMI) [Ratio] 30.2 kg/m2 [employer] Work Phone: [facility] 12-28-2024 10:09-0400 Body weight 74.84 kg [employer] PA-C Work Phone: [facility] 12-28-2024 10:09-0400 Diastolic blood pressure 82 mm[Hg] [employer] PA-C Work Phone: [facility] 12-28-2024 10:09-0400 Systolic blood pressure 124 mm[Hg] [employer] PA-C Work Phone: [facility] 01-15-2023 11:46-0400 Body temperature 97.1 [degF] [facility] 01-15-2023 11:46-0400 Diastolic blood pressure 75 mm[Hg] [facility] 01-15-2023 11:46-0400 Heart rate 87 /min [facility] 01-15-2023 11:46-0400 Respiratory rate 16 /min [facility] 01-15-2023 11:46-0400 SaO2% (BldA) [Mass fraction] 98 % [facility] 01-15-2023 11:46-0400 Systolic blood pressure 114 mm[Hg] [facility] 01-15-2023 08:41-0400 Inhaled oxygen flow rate 100 L/min [facility] 01-15-2023 06:16-0400 Body height 157.48 cm [facility] 01-15-2023 06:16-0400 Body mass index (BMI) [Ratio] 31.4 kg/m2 [facility] 01-15-2023 06:16-0400 Body weight 78 kg [facility] 01-08-2023 14:43-0400 Body weight 79.38 kg Robyn Yang MD Work Phone: [facility] 01-08-2023 14:43-0400 Diastolic blood pressure 80 mm[Hg] Robyn Yang MD Work Phone: [facility] 01-08-2023 14:43-0400 Systolic blood pressure 120 mm[Hg] Robyn Yang MD Work Phone: [facility] 11-04-2022 08:30-0400 Body weight 78.02 kg Robyn Yang MD Work Phone: [facility] 11-04-2022 08:30-0400 Diastolic blood pressure 76 mm[Hg] Robyn Yang MD Work Phone: [facility] 11-04-2022 08:30-0400 Systolic blood pressure 120 mm[Hg] Robyn Yang MD Work Phone: [facility] 07-03-2022 18:28-0500 Diastolic blood pressure 91 mm[Hg] [facility] Work Phone: 07-03-2022 18:28-0500 Heart rate 89 /min [facility] Work Phone: 07-03-2022 18:28-0500 Respiratory rate 16 /min [facility] Work Phone: 07-03-2022 18:28-0500 SaO2% (BldA) [Mass fraction] 96 % [facility] Work Phone: 07-03-2022 18:28-0500 Systolic blood pressure 123 mm[Hg] [facility] Work Phone: 07-03-2022 16:08-0500 Body height 160.02 cm [facility] Work Phone: 07-03-2022 16:08-0500 Body mass index (BMI) [Ratio] 24.7 kg/m2 [facility] Work Phone: 07-03-2022 16:08-0500 Body temperature 98 [degF] [facility] Work Phone: 07-03-2022 16:08-0500 Body weight 63.45 kg [facility] Work Phone: Encounters Encounter Date Encounter Type Care Provider Facility Start: 01-17-2025 ambulatory Susan Sánchez Facility :[facility] Start: 01-17-2025 Patient encounter procedure Susan Pozo CNM -Outpatient Breast Imaging Work Phone: Start: 01-10-2025 End: 01-10-2025 Patient encounter procedure Susan Pozo CNM -Outpatient Breast Imaging Work Phone: Start: 01-10-2025 End: 01-10-2025 ambulatory Susan Pozo Facility:[facility] Start: 12-28-2024 End: 12-28-2024 [facility] Work Phone: [facility] Work Phone: Start: 12-28-2024 End: 12-28-2024 Patient encounter procedure Susan Pozo CNM -Laboratory Specimen Work Phone: Start: 12-28-2024 End: 12-28-2024 Patient encounter procedure Susan Pozo CNM -[facility] Start: 12-28-2024 End: 12-28-2024 Patient encounter status Susan Pozo CNM [facility] Start: 12-28-2024 End: 12-28-2024 ambulatory Fabiana HashParade PA-C Work Phone: [facility] Work Phone: Start: 12-28-2024 End: 12-28-2024 ambulatory BillGuard PA Facility:[facility] Start: 10-11-2024 ambulatory MARIBEL CASEY [facility] Start: 10-11-2024 Encounter for genera l adult medical examination without abnormal findings MARIBEL CASEY [facility] Start: 09-10-2023 ambulatory SHEELA Clark y:[id number] Start: 09-10-2023 End: 09-10-2023 Subsequent hospital visit by physician Screen/Diagnostic [facility] Comment on above: Other abnormal and i nconclusive findings on diagnostic imaging of breast [R92.8] Start: 01-28-2023 Telephone encounter Robyn Yang MD Work Phone: OB/Gynecology Comment on above: Results Start: 01-15-2023 End: 01-15-2023 Admission to same day surgery center [facility]-Surgical Day Care Start: 01-15-2023 End: 01-15-[address] [facility] Work Phone: Start: 01-08-2023 End: 01-09-2023 ambulatory ROBYN YANG Facility:[facility] Start: 01-08-2023 Encounter for other preprocedural examination ROBYN YANG [facility] Start: 01-08-2023 End: 01-08-2023 Patient encounter procedure Robyn Yang MD Work Phone: OB/Gynecology Comment on above: Hydrosalpinx (Primar y Dx); Pelvic pain in female; Pre-op exam Start: 01-08-2023 End: 01-08-2023 Preprocedural examination done Robyn Yang MD Work Phone: OB/Gynecology Start: 12-25-2022 ambulatory Robyn Yang MD Work Phone: OB/Gynecology Comment on above: surgical confirmatio n Start: 12-25-2022 E-mail encounter fro m caregiver Robyn Yang MD Work Phone: [facility] Start: 12-11-2022 End: 12-12-2022 ambulatory [facility] Facility:[facility] Start: 11-17-2022 End: 11-17-2022 ambulatory [facility]IO [facility] Facility:[facility] Start: 11-10-2022 End: 11-11-2022 ambulatory ORACIO BLAND Facility:[facility] Start: 11-04-2022 End: 11-04-2022 ambulatory ROBYN YANG Facility:[facility] Start: 11-04-2022 End: 11-04-2022 Patient encounter procedure Robyn Yang MD Work Phone: OB/Gynecology Comment on above: Pelvic pain in femal e (Primary Dx); Secondary oligomenorrhea; Uterine leiomyoma, unspecified location; Abnormal uterine bleeding (AUB); Cyst of left ovary; Urinary frequency; Urinary urgency Start: 07-07-2022 End: 07-07-[address] [facility] Work Phone: Start: 07-07-2022 End: 07-07-2022 Patient encounter procedure [facility]-Radiology, WC Start: 07-03-2022 End: 07-03-2022 Emergency department patient visit [facility]-Emergency Department Start: 06-24-2022 End: 06-24-2022 ambulatory SHEELA HUIZAR Facility:[facility] Start: 05-20-2022 Documentation procedure Mammog satnam Coordinator [facility] Start: 05-20-2022 Letter encounter Mammography Coordinator [facility] Department Start: 05-19-2022 End: 05-19-2022 ambulatory ORACIO KATIE BALDO Facility:[facility] Start: 05-06-2022 Telephone encounter Hilda Tim MD Work Phone: General Surgery Comment on above: Orders Procedures Date Procedure Procedure Detail Performing Clinician Start: 01-17-2025 Ultrasonography of breast [employer] Work Phone: Start: 01-17-2025 Mammography Fabianajoie pittman Zzish Work Phone: Start: 01-10-2025 Screening mammography K [employer] Work Phone: Start: 12-28-2024 Liquid based cervica l cytology screening [employer] Work Phone: Comment on above: NEGATIVE FOR INTRAEP ITHELIAL LESION OR MALIGNANCY. This liquid based Th inPrep(R) pap test was screened withthe use of an image guided system. Start: 09-10-2023 Us breast uni real t koki with image limited Sheela Huizar DO Work Phone: Start: 09-10-2023 Digital breast tomosynthesis bilateral Sheela Huizar DO Work Phone: Start: 01-15-2023 Laparoscopic salpingectomy Start: 11-04-2022 Urnls dip stick/tabl et rgnt auto w/o microscopy Robyn Yang MD Work Phone: Start: 07-07-2022 Diagnostic radiograp hy of abdomen Start: 07-03-2022 CT of abdomen and pe lvis without contrast Start: 05-19-2022 Mammography Mammograph y Coordinator Start: 10-03-2020 Mammography Hilda English MD Work Phone: Plan of Treatment Date Care Activity Detail Author Start: 12-25-2024 HPV TESTING HPV TESTING [facility] Start: 12-25-2024 PAP TESTING PAP TESTING [facility] Start: 12-25-2024 Screening for malign ant neoplasm of cervix [facility] Start: 09-10-2024 Screening for malign ant neoplasm of breast Mammogram Screening [facility] Start: 05-19-2023 Mammography MAMMOGRAM [facility] Start: 2023 Diabetes Screening Diabetes Screenin g [facility] Start: 2023 Lipid panel Lipid Screening [facility] Start: 2023 Screening for malign ant neoplasm of colon [facility] Start: 03-27-2023 Covid-19 Vaccine ( season) Covid-19 Vaccine () [facility] Start: 03-27-2023 Influenza vaccination [facility] Start: 01-15-2023 Patient discharge [facility] Start: 01-15-2023 Ambulation without limitation [facility] Start: 01-15-2023 Medical regimen orde rs management [facility] Start: 01-15-2023 Medication education [facility] Start: 01-15-2023 Taking patient vital signs [facility] Start: 01-15-2023 Vital signs measurements [facility] Start: 01-15-2023 [facility] Start: 11-04-2022 End: 01-04-2023 Estradiol (E2) [Mass/volume] in Serum or Plasma ESTRADIOL-17B BLD Lab Routine Secondary oligomenorrhea Expected: 11/04/2022, Expires: 01/04/2023 [facility] Work Phone: Comment on above: Expected: 11/04/2022 , Expires: 01/04/2023 Start: 11-04-2022 End: 11-05-2023 PELVIC US WHI PELVIC US WHI Anc Imaging Routine Cyst of left ovary Uterine leiomyoma, unspecified location Secondary oligomenorrhea Expected: 11/04/2022, Expires: 11/05/2023 [facility] Work Phone: Comment on above: Expected: 11/04/2022 , Expires: 11/05/2023 Start: 11-04-2022 End: 01-04-2023 Prolactin [Mass/volume] in Serum or Plasma PROLACTIN BLD Lab Routine Secondary oligomenorrhea Expected: 11/04/2022, Expires: 01/04/2023 [facility] Work Phone: Comment on above: Expected: 11/04/2022 , Expires: 01/04/2023 Start: 11-04-2022 End: 01-04-2023 TESTOSTERONE, FREE AND TOTAL TESTOSTERONE, FREE AND TOTAL Lab Routine Secondary oligomenorrhea Expected: 11/04/2022, Expires: 01/04/2023 [facility] Work Phone: Comment on above: Expected: 11/04/2022 , Expires: 01/04/2023 Start: 03-27-2022 Influenza vaccination INFLUENZA (#1) [facility] Start: 10-03-2021 Mammography MAMMOGRAM [facility] Start: 08-13-2021 COVID-19 VACCINE (4 - Booster for Pfizer series) COVID-19 VACCINE (4 - Booster for Pfizer series) [facility] Start: 10-02-2020 COVID-19 VACCINE (3 - Pfizer risk series) COVID-19 VACCINE (3 - Pfizer risk series) [facility] Start: 1997 SHINGRIX VACCINE (1 of 2) SHINGRIX VACCINE (1 of 2) [facility] Start: 1997 Urine microalbumin profile [facility] Start: 1996 HEPATITIS C SCREENING HEPATITIS C [facility] Start: 1996 Hepatitis C screening Hepatitis C [facility] Start: 1996 HIV SCREENING HIV SCREENING [facility] Start: 1996 HIV screening HIV Screening [facility] Start: 1984 PNEUMOCOCCAL (1 - PCV) PNEUMOCOCCAL (1 - PCV) [facility] Start: 1978 HEPATITIS B (1 of 3 - 3-dose series) HEPATITIS B (1 of 3 - 3-dose series) [facility] Start: 1978 Hepatitis B Vaccine (1 of 3 - 3-dose series) Hepatitis B Vaccine (1 of 3 - 3-dose series) [facility] Endometrial bx w/wo endocervix bx w/o dilat spx ENDOMETRIAL BIOPSY Procedures Routine Secondary oligomenorrhea Abnormal uterine bleeding (AUB) Ordered: 11/04/2022 [facility] Work Phone: Comment on above: Ordered: 11/04/2022 Insertion intrauteri ne device iud INSERT INTRAUTERINE DEVICE Procedures Routine Uterine leiomyoma, unspecified location Secondary oligomenorrhea Abnormal uterine bleeding (AUB) Ordered: 11/04/2022 [facility] Work Phone: Comment on above: Ordered: 11/04/2022 Liquid based cervica l cytology screening [facility] MG Breast - bilatera l Screening [facility] Patient Education ED Flank Pain, Uncertain Cause ED Pain, Acute, Uncertain Cause [facility] Work Phone: Patient referral [facility] Work Phone: [facility] Immunizations Immunization Date Immunization Notes Care Provider Fa [facility] 05-18-2009 influenza virus vacc ine, unspecified formulation Screen/Diagnostic 2 [facility] Payers Date Payer Category Payer Self-pay [id number] 2009 Unknown [employer] PPO OOS [id number] 2009-Present [phone] [address] [place] [address] PPO [id number] 2009 Unknown [id number] 1980 Unknown [id number] Unknown [id number] Unknown [id number] Unknown [id number] Unknown [id number] Unknown [id number] Social History Date Type Detail Facility Start: 03-19-2015 End: 12-28-2024 Tobacco smoking status NYIS Ex-smoker [facility] Start: 03-19-2009 History of tobacco use Current smoker [facility] Start: 03-19-2009 History of tobacco use Cigarette Smoker [facility] Start: 03-19-2015 End: 11-04-2022 Tobacco use and exposure Smokeless tobacco non-user [facility] Start: 09-19-2019 End: 01-15-2023 Alcohol intake Current drinker of alcohol (finding) [facility] Start: 03-19-2015 Alcohol Comment Rare [facility] Start: 1980 Sex Assigned At Not on file [facility] Start: 05-09-2022 End: 05-19-2022 Exposure to SARS-CoV-2 (event) Not sure [facility] Start: 07-03-2022 End: 01-08-2023 Tobacco smoking status [facility] Unknown if ever smoked [facility] Start: 1980 Sex Assigned At Female [facility] Start: 12-30-2022 End: 01-08-2023 History of Social function [facility] Start: 12-30-2022 End: 01-08-2023 Tobacco use panel [facility] National Score (1-100), lower number is lower risk 58 [facility] NEGATED: Highlighted row [facility] Goals Date Patient Goal Desired Activity /State Mental Status Date Assessment Result Facility 01-15-2023 Cognitive function Level Of Cons ciousness Awake;Drowsy [facility] Work Phone: 01-15-2023 Cognitive function Voice/Name [facility] Work Phone: Clinical Notes 05-06-2022 to 12-28-2024 Note Date & Type Note Facility 12-28-2024 Evaluation note Diagnosis Onset Date Resolution Perimenopausal vasomotor symptoms acute December 28, 2024 9:48am Encounter for routine gynecological examination noneactive December 28, 2024 9:48am [facility] Work Phone: [phone]) 553-207207-05-2023 Miscellaneous Notes* Telephone Encounter - Fabiana Gomez LPN - 01/28/2023 8:49 AM EDT Spoke with pt and results given. Pt has no further questions or concerns. Fabiana Gomez LPN * Telephone Encounter - Robyn Yang MD - 01/28/2023 8:21 AM EDT Notify patient of benign pathology from bilateral tubes- shows hydrosalpinx and paratubal cysts. Nopost op needed unless concerns. [facility] Discharge summary Author M Dr. Robyn Montez [facility] January 15, 2023 8:50am Note Date/Time January 15, 2023 7:25 am [facility] Medical Records Department [address] [place] [address] Instructions for Home/Discharge Instructions 01/15/23 0725 MR#: [id number] Acct: [id number] Name: BERE CENTENO Rep #:[id number] : 1980 42 From: Robyn Yang MD PCP: Fabiana Rand PA-C Status:REG S DC Discharge Instructions Procedure Other Diet Discharge Diet: No restrictions Activity May resume sexual activity in: 2 weeks Lifting Restrictions: 20-25 lbs Dressing / Incision Call your doctor if your incision/area has: Continuous Slow Oozing, Sudden Increased Bleeding, Increased Pain/ Swelling, Increased Redness, Foul Smelling Discharge and Swelling at the incision site Call your doctor if you observe: Fever of 101 or Higher, Inability to urinate, Inability to have a bowel movement, Using more than 1 pad per hour and Uncontrolled pain Additional Dressing/Incision Instructions:: You have skin glue over your incision sites, do not pick off. You may shower and let the soap and water run over the incision sites and dab dry. Follow Up Care Please Follow Up With: Robyn Hartman MD When: 1-2 weeks post OP if you need an appointment please call [phone] Test Results: Test results from this visit will be discussed in further detail at your follow- up appointment, if applicable. Discharge Plan Admission Attending Provider: Robyn Hartman Primary Care Provider: Fabiana Rand Discharge Orders/Prescriptions Prescriptions: No Action sertraline [Zoloft] 100 mg Tablet 100 mg PO DAILY ibuprofen 600 mg Tablet 600 mg PO Q8H PRN (Reason: Pain) biotin 500 mcg Capsule 1 mg PO DAILY Referrals / Follow Up: Fabiana Rand PA-C [Primary Care Provider] - Disposition Disposition (needs filled in before D/C Order can be placed): Home, Self Care 01/15/23 0850<Electronically signed by Robyn Hartman MD>Robyn Hartman MD CC: ANGELICA Rand ~ Signed [facility] Work Phone: 1(644) 534-232106-22-2023 History and physical note Author M Dr. Robyn Montez [facility] January 15, 2023 7:19am Note Date/Time January 14, 2023 5:[address] [facility] Medical Records Department [address] [place] [address] History & Physical Exam 01/14/23 1726 MR#: [id number] Acct: [id number] Name: BERE CENTENO Rep #:[id number] : 1980 42 From: Robyn Yang MD PCP: Fabiana Rand PA-C Status:REG S [place] Location: [address] History and Physical Date of Admission: 01/15/23 Pre-Op History and Physical HPI: The patient is a 42 year old female presenting for pre-operative visit. She is scheduled for laparoscopic bilateral salpingectomy, for pelvic pain, lefthydrosalpinx on 01/15/2023. Procedure discussed along with risks, benefits and complications. Other alternatives discussed for management. Consent form signed? Yes. ? ? PAST MEDICAL HISTORY PAST MEDICAL HISTORY Diagnosis Date ? Rheumatoid arteritis (HCC) ? ? ? PAST SURGICAL HISTORY PAST SURGICAL HISTORY Procedure Laterality Date ? APPENDECTOMY ? 04/2010 ? CHOLECYSTECTOMY ? 2004 ? PAST SURGICAL HISTORY OF ? 10/08 ? back surgery on L4 and 5 ? TUBAL LIGATION HX ? 1999 ? ? ? CURRENT MEDICATIONS Current Outpatient Medications Medication Sig Dispense Refill ? levonorgestrel (MIRENA) 21 mcg/24 hours (8 yrs) 52 mg IUD 1 Each by INTRAUTERINE route as directed. 1 Each 0 ? mv-min/iron/folic/calcium/vitK (WOMEN'S MULTIVITAMIN ORAL) Take by mouth. ? ? ? ibuprofen (MOTRIN) 600 mg tablet Take 1 tablet by mouth every 6 hours as needed. FOR PAIN. 60 tablet 1 ? sertraline (ZOLOFT) 100 mg tablet Take 150 mg by mouth once daily. ? No current facility-administered medications for this visit. ? ? ALLERGIES: Keflex [Cephalexin], Nubain [Nalbuphine], and Sulfa (Sulfonamide Antibiotics) ? PERSONAL HISTORY: SOCIAL HISTORY Social History ? Tobacco Use ? Smoking status: Former ? ? Years: 10.00 ? ? Types: Cigarettes ? ? Start date: 03/19/2009 ? Smokeless tobacco: Never Substance Use Topics ? Alcohol use: Yes ? ? Comment: Rare ? Drug use: No ? FAMILY HISTORY: FAMILY HISTORY FAMILY HISTORY Problem Relation Age of Onset ? Heart Mother ? ? 2 stents ? Hyperlipidemia Mother ? ? Hypertension Mother ? ? ? REVIEW OF SYMPTOMS: negative except as noted above PHYSICAL EXAMINATION: ? VITALS: Blood pressure 120/80, weight 175 lb (79.4 kg), last menstrual period 11/28/2022. ? GENERAL: The patient is well nourished, well hydrated in no acute distress. , The patient is oriented to time, place, and person. LUNGS: Clear to auscultation bilaterally. no wheezes, rhonchi or rales HEART: Regular rate and rhythm, Normal heart sounds, and No murmurs or gallops Neck: full range of motion ? IMPRESSION: 42-year-old female with left lower quadrant intermittent pain, left hydrosalpinx ? PLAN: Laparoscopic bilateral salpingectomy ? Pt has been counseled on risks/benefits and alternatives of surgery including but not limited to anesthesia, bleeding, infection, injury to pelvic structures including bowel, bladder, ureters and vessels. Pt wishes to proceed with surgery at this time. Patient has a history of a tubal ligation. She does not desire further childbearing capabilities. IUD is already in place. ? Pre and postop procedures reviewed ? I have reviewed and updated past medical and surgical history, medications and allergies Robyn Yang MD ?4:08 PM 01/14/23 1726 <Electronically signed by Robyn Hartman MD> Cosigner Signature (if applicable): CC: Candelario Hartman; ANGELICA Rand~ Signed ADDENDUM by Candelario Hartman on 01/15/23 at 0719 Addendum I have examined the patient and the H&P has been reviewed. There are no clinical changes since date of exam. 01/15/23 0719<Electronically signed by Robyn Hartman MD> Cosigner Signature (if applicable): cc: Candelario Hartman; ANGELICA Rand ~* Signed [facility] Work Phone: 1(100) 729-203406-22-2023 Procedure [facility] 01-08-2023 NoteHNO ID: [id number] Author: Robyn Yang MD Service: ? Author Type: Physician Type: Progress Notes Filed: 01/08/2023 4:08 PM Note Text:[facility]06-15-20[facility] History of Present illness Narrative* Robyn Yang MD - 01/08/2023 4:05 PM EDT [facility] History and physical note * Robyn Yang MD - 01/08/2023 3:08 PM EDT Pre-Op History and Physical HPI: The patient is a 42 year old female presenting for pre-operative visit. She is scheduled for laparoscopic bilateral salpingectomy, for pelvic pain, left hydrosalpinx on 01/15/2023. Procedure discussed along with risks, benefits and complications. Other alternatives discussed for management. Consent form signed? Yes. PAST MEDICAL HISTORY Diagnosis Date Rheumatoid arteritis (HCC) PAST SURGICAL HISTORY Procedure Laterality Date APPENDECTOMY 04/2010 CHOLECYSTECTOMY 2004 PAST SURGICAL HISTORY OF 10/08 back surgery on L4 and 5 TUBAL LIGATION HX 1999 Current Outpatient Medications Medication Sig Dispense Refill levonorgestrel (MIRENA) 21 mcg/24 hours (8 yrs) 52 mg IUD 1 Each by INTRAUTERINE route as directed.1 Each 0 mv-min/iron/folic/calcium/vitK (WOMEN'S MULTIVITAMIN ORAL) Take by mouth. ibuprofen (MOTRIN) 600 mg tablet Take 1 tablet by mouth every 6 hours as needed. FOR PAIN. 60 tablet 1 sertraline (ZOLOFT) 100 mg tablet Take 150 mg by mouth once daily. No current facility-administered medications for this visit. ALLERGIES: Keflex [Cephalexin], Nubain [Nalbuphine], and Sulfa (Sulfonamide Antibiotics) PERSONAL HISTORY: Social History Tobacco Use Smoking status: Former Years: 10.00 Types: Cigarettes Start date: 03/19/2009 Smokeless tobacco: Never Substance Use Topics Alcohol use: Yes Comment: Rare Drug use: No FAMILY HISTORY: FAMILY HISTORY Problem Relation Age of Onset Heart Mother 2 stents Hyperlipidemia Mother Hypertension Mother REVIEW OF SYMPTOMS: negative except as noted above PHYSICAL EXAMINATION: VITALS: Blood pressure 120/80, weight 175 lb (79.4 kg), last menstrual period 11/28/2022. GENERAL: The patient is well nourished, well hydrated in no acute distress. , The patient is oriented to time, place, and person. LUNGS: Clear to auscultation bilaterally. no wheezes, rhonchi or rales HEART: Regular rate and rhythm, Normal heart sounds, and No murmurs or gallops Neck: full range of motion IMPRESSION: 42-year-old female with left lower quadrant intermittent pain, left hydrosalpinx PLAN: Laparoscopic bilateral salpingectomy Pt has been counseled on risks/benefits and alternatives of surgery including but not limited to anesthesia, bleeding, infection, injury to pelvic structures including bowel, bladder, ureters and vessels. Pt wishes to proceed with surgery at this time. Patient has a history of a tubal ligation. Shedoes not desire further childbearing capabilities. IUD is already in place. Pre and postop procedures reviewed I have reviewed and updated past medical and surgical history, medications and allergies Robyn Yang MD documented in this encounterPrem[facility] NoteHNO ID: [id number] Author: Robyn Yang MD Service: ? Author Type: Physician Type: Progress Notes Filed: 11/17/2022 4:00 PM Note Text: Tool And Die Manager offered: Patient declines. Bere is a 42 year old who presents today for an endometrial biopsy for abnormal uterine bleeding, oligomenorrhea- labs wnl tesosterone still pending . test: negative UNIVERSAL PROTOCOL / SAFETY CHECKLIST Procedure to be Performed: EMB and Mirena IUD insertion Sign In: A Moment of CARE was completed. Personnel directly involved with the procedure wore the appropriate PPE (Personal Protective Equipment). Patient/Surrogate Stated/Verified: PATIENT VERIFIED(optional for EMERGENT procedures): Patient name, Date of , Relevant allergies, and The intended procedure Time Out Communication: Intended patient and procedure match the source documents. Consent documented and matches the intended procedure. Sign Out: SIGN OUT (optional for EMERGENT procedures): All specimen containers correctly labeled. PROCEDURE: EXTERNAL GENITALIA: Normal in appearance without lesions VAGINA: Normal in appearance without lesions BIOPSY: Speculum placed into the vagina with excellent visualization of the cervix. Cervix cleaned with betadine. Anterior lip of cervix grasped with single toothed tenaculum. Cervix stenotic - dilators used. Uterus sounded to 6.5 cm. Pipelle inserted into the uterus without difficulty and endometrial biopsy obtained. Specimen labeled and sent to pathology. Hemostasis achieved. Procedure Summary: Patient tolerated procedure well. ASSESSMENT: abnormal uterine bleeding, Oligomenorrhea PLAN: Specimens labeled and sent to Pathology. Will notify patient of results in 1-2 weeks. Jeannette Merritt presents today for IUD insertion for menstrual dysfunction. Patient's last menstrual period was 03/27/2022. GC/chlamydia: Not done: no risk factors and/or patient declines screening test: negative Side effects including irregular bleeding were discussed with the patient. The patient understands that it should be removed in 8 years or sooner if the patient desires a . IUD source: office provided IUD lot #: [id number] Exp date: 05/2024 UNIVERSAL PROTOCOL / SAFETY CHECKLIST Procedure to be Performed: EMB and mirena iud insertion Sign In: A Moment of CARE was completed. Personnel directly involved with the procedure wore the appropriate PPE (Personal Protective Equipment). Patient/Surrogate Stated/Verified: PATIENT VERIFIED(optional for EMERGENT procedures): Patient name, Date of , Relevant allergies, and The intended procedure Time Out Communication: Intended patient and procedure match the source documents. Consent documented and matches the intended procedure. Sign Out: SIGN OUT (optional for EMERGENT procedures): No specimen collected. EMB specimen labeled The cervix was prepped with betadine. The uterus sounded to 6.5 cm and the uterus is Midposition.. Using sterile technique, the Mirena IUD was inserted after the cervix was dilated and the string was cut to 2cm from the external os of the cervix. Patient tolerated procedure well. PLAN: Patient was advised to observe for signs and symptoms of infection including but not limited to fever, malodorous vaginal discharge and/or pain. The patient was told to check the string monthly for accurate placement. Bleeding expectations were reviewed. Limited bedside ultrasound done to confirm proper placement due to difficult placement - cervical stenosis. Follow up in one month. Rationale for Mirena IUD- labs do not support menopausal status- concerned with excess estrogen and no anovulation - pt agreeable to continue. [facility] Instructions* Patient Instructions* Robyn Yang MD - 11/04/2022 11:34 AM EDT Images from the original note were not included. DIETARY GUIDELINES FOR INTERSTITIAL CYSTITIS FOOD CATEGORY PERMITTED FOODS FOODS TO AVOID OR USE CAUTIOUSLY Fruits Blueberries, melons other than cantaloupe and pears All other fruits and juices made from them Vegetables Potatoes, homegrown tomatoes, and vegetables other than those listed on the right Aníbal beans, callahan beans, onions, rhubarb, tofu, and store-bought tomatoes Milk/Dairy White chocolate, cottage cheese, Colombian cheese, milk Aged cheese, sour cream, eggs, yogurt, chocolate Carbohydrates/Grains Pasta, rice, and breads other than those listed on the right Comins and sourdoughbreads Meats/Fish Poultry, fish and meats other than those listed on the right Aged, canned and cured, processed and smoked meats and fish, anchovies, caviar, chicken livers, corned beef and meats that contain nitrates or nitrites Nuts Almonds, cashews and pine nuts Most other nuts Beverages Bottled or spring water, decaffeinated, acid-free coffee and tea, some herbal teas Alcoholic beverages, beer and wine, carbonated drinks, coffee, tea and cranberry juice Seasonings Garlic and seasonings other than below Mayonnaise, miso, spicy foods (especially Czech, Ivorian, and Tre foods.) *Adapted with permission from the [employer] On Course for Better Health Foods that fight inflammation April 13, 2020 Doctors are learning that one of the best ways to reduce inflammation lies not in the medicine cabinet, but in the refrigerator. By following an anti- inflammatory diet you can fight off inflammation for good. What does an anti-inflammatory diet do? Your immune system becomes activated when your body recognizes anything that is foreign--such as an invading microbe, plant pollen, or chemical. This often triggers a process called inflammation. Intermittent bouts of inflammation directed at truly threatening invaders protect your health. However, sometimes inflammation persists, day in and day out, even when you are not threatened by aforeign invader. That's when inflammation can become your enemy. Many major diseases that plague us--including cancer, heart disease, diabetes, arthritis, depression, and Alzheimer's--have been linked to chronic inflammation. One of the most powerful tools to combat inflammation comes not from the pharmacy, but from the grocery store. Many experimental studies have shown that components of foods or beverages may have anti-inflammatory effects, says Dr. Bret Turner, professor of nutrition and epidemiology in the Department of Nutrition at the [employer]. Choose the right anti-inflammatory foods, and you may be able to reduce your risk of illness. Consistently pick the wrong ones, and you could accelerate the inflammatory disease process. Get simple tips to fight inflammation and stay healthy -- from [facility] experts. Protect yourself from the damage of chronic inflammation Click here to learn more Foods that cause inflammation Try to avoid or limit these foods as much as possible: refined carbohydrates, such as white bread and pastries Kazakh fries and other fried foods soda and other sugar-sweetened beverages red meat (burgers, steaks) and processed meat (hot dogs, sausage) margarine, shortening, and lard The health risks of inflammatory foods Not surprisingly, the same foods on an inflammation diet are generally considered bad for our health, including sodas and refined carbohydrates, as well as red meat and processed meats. Some of the foods that have been associated with an increased risk for chronic diseases such as type 2 diabetes and heart disease are also associated with excess inflammation, Dr. Turner says. It's not surprising, since inflammation is an important underlying mechanism for the development of these diseases. Unhealthy foods also contribute to weight gain, which is itself a risk factor for inflammation. Yetin several studies, even after researchers took obesity into account, the link between foods and inflammation remained, which suggests weight gain isn't the sole paratransit driver. Some of the food components or ingredients may have independent effects on inflammation over and above increased caloric intake, Dr. Turner says. Anti-inflammatory foods An anti-inflammatory diet should include these foods: tomatoes olive oil green leafy vegetables, such as spinach, kale, and collards nuts like almonds and walnuts fatty fish like salmon, mackerel, tuna, and sardines fruits such as strawberries, blueberries, cherries, and oranges Benefits of anti-inflammatory foods On the flip side are beverages and foods that reduce inflammation, and with it, chronic disease, says Dr. Turner. He notes in particular fruits and vegetables such as blueberries, apples, and leafy greens that are high in natural antioxidants and polyphenols--protective compounds found in plants. Studies have also associated nuts with reduced markers of inflammation and a lower risk of cardiovascular disease and diabetes. Coffee, which contains polyphenols and other anti-inflammatory compounds, may protect against inflammation, as well. Anti-inflammatory diet To reduce levels of inflammation, aim for an overall healthy diet. If you're looking for an eating plan that closely follows the tenets of anti-inflammatory eating, consider the Mediterranean diet, which is high in fruits, vegetables, nuts, whole grains, fish, and healthy oils. In addition to lowering inflammation, a more natural, less processed diet can have noticeable effects on your physical and emotional health. A healthy diet is beneficial not only for reducing the risk of chronic diseases, but also for improving mood and overall quality of life, Dr. Turner says. documented in this encounterPrem[facility]04[facility]23 NoteHNO ID: [id number] Author: Robyn Yang MD Service: ? Author Type: Physician Type: Progress Notes Filed: 11/04/2022 11:36 AM Note Text: Tool And Die Manager offered: Patient declines. Bere Centeno is a 42 year old female who presents for Pelvic pain. Pt reports for years has been having pelvic pain but over past few months has been having more pain on left side. Pt reports has not had a menses since March 2022. Patient reports that her primary care physician ran some labs but is unsure why she is not having menses. Patient states she was not sure if she had polycystic ovarian syndrome in the past. Patient reports she feels like she is going to get her menses but nothing ever starts. Patient states prior to her March menses it was months before that that she had her last one. She denies any hot flashes or night sweats. She denies any unwanted facial hair. Patient reports that the pain is worse on the left side it is a constant aching pain. The pain can flareup and be severe. She denies any changes with her bowel habits. She does states she has urinary frequency but is unable to fully empty her bladder. She denies any significant pain with intercourse. She denies any vaginal odors or discharge. Patient states she previously saw a urologist because they thought maybe she had stones that was negative. She states that the urologist never did a cystoscopy to evaluate inside the bladder. Patient denies any nausea or vomiting with her pain. She currently uses tubal ligation for control. Patient offers no other concerns at this time. OB History T4 L4 SAB0 IAB0 Ectopic0 Multiple0 Live Births4 Surgical Sales Representative History LMP: 12/08/2019, Having periods Age at Menarche: Age at First : Age at Menopause: Surgical Sales Representative History Comments: Sexual Activity: Yes; Male Contraception: Tubal Ligation PAST MEDICAL HISTORY Diagnosis Date Rheumatoid arteritis (HCC) PAST SURGICAL HISTORY Procedure Laterality Date APPENDECTOMY 04/2010 PAST SURGICAL HISTORY OF 10/08 back surgery on L4 and 5 REMOVAL GALLBLADDER 2004 TUBAL LIGATION HX 1999 FAMILY HISTORY Problem Relation Age of Onset Heart Mother 2 stents Hyperlipidemia Mother Hypertension Mother Social History Tobacco Use Smoking status: Former Years: 10.00 Types: Cigarettes Start date: 03/19/2009 Smokeless tobacco: Never Substance Use Topics Alcohol use: Yes Comment: Rare Drug use: No Current Outpatient Medications Medication Sig celecoxib (CELEBREX) 200 mg capsule Take 200 mg by mouth twice daily. gabapentin (NEURONTIN) 300 mg capsule Take by mouth. mv-min/iron/folic/calcium/vitK (WOMEN'S MULTIVITAMIN ORAL) Take by mouth. ibuprofen (MOTRIN) 600 mg tablet Take 1 tablet by mouth every 6 hours as needed. FOR PAIN. sertraline (ZOLOFT) 100 mg tablet Take 150 mg by mouth once daily. methotrexate 2.5 mg tablet Take 2.5 mg by mouth one time only. buspirone HCl (BUSPAR ORAL) Take 15 mg by mouth three times daily. folic acid 1 mg tablet Take 1 mg by mouth once daily. No current facility-administered medications for this visit. Allergies As of Date: 11/04/2022 Allergen Noted Reaction KEFLEX [CEPHALEXIN] 03/19/2015 Hives and Itching NUBAIN [NALBUPHINE] 03/19/2015 Hives and Itching SULFA (SULFONAMIDE ANTIBIOTICS) 08/12/2018 Hives Fully Assessed 10/03/2020 REVIEW OF SYSTEMS Abdomen: No bloating, early satiety, indigestion, or increased flatulence. No abdominal pain, nausea, vomiting, diarrhea, or constipation. Bladder: frequency and urgency. Breast: No breast lumps, nipple d/c, overlying skin changes, redness or skin retraction. Expanded ROS: no fever Allergies and current medication updated:Yes EXAM: BP 120/76 Wt 172 lb (78.0kg) LMP 03/27/2022 GENERAL: pleasant, female in no apparent distress HEENT: Normocephalic, atraumatic, mucus membranes moist, and no lesions NECK: full range of motion DERMATOLOGY: Normal, without lesions, non-icteric, and non-hirsute ABDOMEN: soft, non-tender, and no masses PELVIC: external genitalia normal, normal Bartholin's glands, urethra, Lehr's glands, no vulvar lesions, good vaginal support, normal appearing perineal body and perianal region BIMANUAL: uterus normal size, shape and consistency, no adnexal masses, Moderate tenderness, and bladder tender to palpation. Uterus freely mobile NEURO: alert and oriented x3,exam grossly non-focal EXTREMITIES: normal ASSESSMENT AND PLAN: Encounter Diagnosis ICD-10-CM 1. Pelvic pain in female R10.2 2. 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 Uterine leiomyoma, unspecified location D25.9 PELVIC US WHI INSERT INTRAUTERINE DEVICE 4. Abnormal uterine bleeding (AUB) N93.9 ENDOMETRIAL BIOPSY INSERT INTRAUTERINE DEVICE 5. Cyst of left ovary N83.202 PELVIC US WHI (more content not included)...[facility]04-11-2023 History of Present illness Narrative* Robyn Yang MD - 11/04/2022 8:24 AM EDT Tool And Die Manager offered: Patient declines. Bere Centeno is a 42 year old female who presents for Pelvic pain. Pt reports for years has been having pelvic pain but over past few months has been having more pain on left side. Pt reports has not had a menses since March 2022. Patient reports that her primary care physician ran some labs but is unsure why she is not having menses. Patient states she was not sure if she had polycystic ovarian syndrome in the past. Patient reports she feels like she is going to get her menses but nothing ever starts. Patient states prior to her March menses it was months before that that she had her last one. She denies any hot flashes or night sweats. She denies any unwanted facial hair. Patient reports that the pain is worse on the left side it is a constant aching pain. The pain can flareup and be severe. She denies any changes with her bowel habits. She does states she has urinary frequency but is unable to fully empty her bladder. She denies any significant pain with intercourse. She denies any vaginal odors or discharge. Patient states she previously saw a urologist because they thought maybe she had stones that was negative. She states that the urologist never did a cystoscopy to evaluate inside the bladder. Patient denies any nausea or vomiting with her pain. She currently uses tubal ligation for control. Patient offers no other concerns at this time. OB History T4 L4 SAB0 IAB0 Ectopic0 Multiple0 Live Births4 Surgical Sales Representative History LMP: 12/08/2019, Having periods Age at Menarche: Age at First : Age at Menopause: Surgical Sales Representative History Comments: Sexual Activity: Yes; Male Contraception: Tubal Ligation PAST MEDICAL HISTORY Diagnosis Date Rheumatoid arteritis (HCC) PAST SURGICAL HISTORY Procedure Laterality Date APPENDECTOMY 04/2010 PAST SURGICAL HISTORY OF 10/08 back surgery on L4 and 5 REMOVAL GALLBLADDER 2004 TUBAL LIGATION HX 1999 FAMILY HISTORY Problem Relation Age of Onset Heart Mother 2 stents Hyperlipidemia Mother Hypertension Mother Social History Tobacco Use Smoking status: Former Years: 10.00 Types: Cigarettes Start date: 03/19/2009 Smokeless tobacco: Never Substance Use Topics Alcohol use: Yes Comment: Rare Drug use: No Current Outpatient Medications Medication Sig celecoxib (CELEBREX) 200 mg capsule Take 200 mg by mouth twice daily. gabapentin (NEURONTIN) 300 mg capsule Take by mouth. mv-min/iron/folic/calcium/vitK (WOMEN'S MULTIVITAMIN ORAL) Take by mouth. ibuprofen (MOTRIN) 600 mg tablet Take 1 tablet by mouth every 6 hours as needed. FOR PAIN. sertraline (ZOLOFT) 100 mg tablet Take 150 mg by mouth once daily. methotrexate 2.5 mg tablet Take 2.5 mg by mouth one time only. buspirone HCl (BUSPAR ORAL) Take 15 mg by mouth three times daily. folic acid 1 mg tablet Take 1 mg by mouth once daily. No current facility-administered medications for this visit. Allergies As of Date: 11/04/2022 Allergen Noted Reaction KEFLEX [CEPHALEXIN] 03/19/2015 Hives and Itching NUBAIN [NALBUPHINE] 03/19/2015 Hives and Itching SULFA (SULFONAMIDE ANTIBIOTICS) 08/12/2018 Hives Fully Assessed 10/03/2020 REVIEW OF SYSTEMS Abdomen: No bloating, early satiety, indigestion, or increased flatulence. No abdominal pain, nausea, vomiting, diarrhea, or constipation. Bladder: frequency and urgency. Breast: No breast lumps, nipple d/c, overlying skin changes, redness or skin retraction. Expanded ROS: no fever Allergies and current medication updated:Yes EXAM: BP 120/76 Wt 172 lb (78.0kg) LMP 03/27/2022 GENERAL: pleasant, female in no apparent distress HEENT: Normocephalic, atraumatic, mucus membranes moist, and no lesions NECK: full range of motion DERMATOLOGY: Normal, without lesions, non-icteric, and non-hirsute ABDOMEN: soft, non-tender, and no masses PELVIC: external genitalia normal, normal Bartholin's glands, urethra, Lehr's glands, no vulvar lesions, good vaginal support, normal appearing perineal body and perianal region BIMANUAL: uterus normal size, shape and consistency, no adnexal masses, Moderate tenderness, and bladder tender to palpation. Uterus freely mobile NEURO: alert and oriented x3,exam grossly non-focal EXTREMITIES: normal ASSESSMENT AND PLAN: Encounter Diagnosis ICD-10-CM 1. Pelvic pain in female R10.2 2. 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 Uterine leiomyoma, unspecified location D25.9 PELVIC US WHI INSERT INTRAUTERINE DEVICE 4. Abnormal uterine bleeding (AUB) N93.9 ENDOMETRIAL BIOPSY INSERT INTRAUTERINE DEVICE 5. Cyst of left ovary N83.202 PELVIC US WHI 6. Urinary frequency R35.0 7. Urinary urgency R39.15 6. Scanned documents: ultrasound reviewed- ? Adenomyosis vs fibroids. Discussed likely physiologic cyst. 7.Discussed options with the patient regarding her pelvic pain. I do feel that an endometrial biopsy is warranted given her oligomenorrhea and no diagnosis of early onset menopause. I did see an FSH level and labs that was normal. Discussed OCPs versus Mirena IUD for uterine protection. Patient would like to proceed with Mirena IUD. We also discussed that if her pain is from adenomyosis this is apossible solution that may improve her pain however she does not have any heavy bleeding. We also discussed other sources of her pain which could be from bladder or bowel. We did discuss eating a very whole food diet and anti- inflammatory diet. Discussed the whole 30 diet with her. We also reviewed interstitial cystitis. I will put in a interstitial cystitis diet recommendations on her after visit summary. If there is no improvement in her symptoms I will refer her to GI and urology for furtherwork-up. At this point I do not feel that surgical intervention is warranted. Medical Decision Making: Problems: Moderate: New problem with uncertain prognosis and 1+ chronic illnesses with change Data: Unique test result(s) reviewed: 2 Unique test(s) ordered: 3+ Risk: Moderate: Drug management Medical Decision Making Level: 4 - Moderate Robyn Hartman MD documented in [facility] NoteHNO ID: [id number] Author: Zari Abreu RDMS Service: ? Author Type: Flower Stripper Type: Progress Notes Filed: 06/24/2022 4:01 PM Note Text: Radiology Service Progress Note PATIENT NAME: Bere Centeno DATE OF SERVICE: June 24, 2022 TIME: 4:00 PM PATIENT IDENTITY VERIFICATION COMPLETED USING TWO (2) IDENTIFIERS: Name and Date of confirmed by patient verbally. FALL SCREENING: Has the patient had 2 falls in the last year or 1 fall with injury or currently using an Ambulatory Assistive Device (Walker, Cane, Wheelchair, Crutches, etc.)? No PATIENT GENDER DATA: Female. status: : No status: NO. PATIENT RELEVANT IMPLANT DATA REVIEWED: Not Applicable RADIOLOGY DEPARTMENT: Ultrasound PERIPHERAL IV DATA: Not applicable SIGNED BY: Zari Abreu RDMS June 24, 2022 4:00 [facility]11-29-2022 NoteHNO ID: [id number] Author: Dipesh Alves Service: ? Author Type: Flower Stripper Type: Progress Notes Filed: 06/24/2022 2:21 PM Note Text: Radiology Service Progress Note PATIENT NAME: Bere Centeno DATE OF SERVICE: June 24, 2022 TIME: 2:03 PM PATIENT IDENTITY VERIFICATION COMPLETED USING TWO (2) IDENTIFIERS: Name and Date of confirmed by patient verbally. FALL SCREENING: Has the patient had 2 falls in the last year or 1 fall with injury or currently using an Ambulatory Assistive Device (Walker, Cane, Wheelchair, Crutches, etc.)? No PATIENT GENDER DATA: Female. status: : No status: NO. PATIENT RELEVANT IMPLANT DATA REVIEWED: Not Applicable RADIOLOGY DEPARTMENT: Mammography PERIPHERAL IV DATA: Not applicable SIGNED BY: Dipesh Alves June 24, 2022 2:03 [facility]10-25-2022 Miscellaneous Notes* Letter - Mammography Coordinator - 05/20/2022 9:54 AM EDT May 20, 2022 PID: [id number] Bere Centeno [address] [place] [address] Dear Ms. Centeno, Your recent breast imaging exam on 05/19/2022 showed a possible finding that requires additional imaging studies for a complete evaluation. Most such findings are probably benign (not cancer). Your mammogram demonstrates that you have dense breast tissue, which could hide abnormalities. Dense breast tissue, in and of itself, is a relatively common condition. Therefore, this information is not provided to cause undue concern; rather, it is to raise your awareness and promote discussion with your health care provider regarding the presence of dense breast tissue in addition to other riskfactors. If you have a healthcare provider who ordered/prescribed your screening mammogram: Please call [phone] or [phone]: [phone] to schedule an appointment for your additional imaging (if youhave not already done so). If you DO NOT have a healthcare provider (ie you did not have an order/prescription for your screening mammogram): Please call to schedule an appointment for your additional imaging (if you have not already done so). You must have an order/prescription from your physician when calling to schedule your appointment. If your order/prescription is not electronic, you must bring the hard copy with you on the day of your exam to avoid delays. Your imaging studies and reports are kept on file at [facility] as part of your permanent medical record, and are available for your continuing care. Thank you for allowing us to help in meeting your health care needs. Sincerely, Dr. Gupta Interpreting Radiologist [facility] (Additional imaging) documented in this encounterPrem[facility]10-24-2022 NoteHNO ID: [id number] Author: Dipesh Alves Service: ? Author Type: Flower Stripper Type: Progress Notes Filed: 05/19/2022 1:24 PM Note Text: Radiology Service Progress Note PATIENT NAME: Bere Centeno DATE OF SERVICE: May 19, 2022 TIME: 1:06 PM PATIENT IDENTITY VERIFICATION COMPLETED USING TWO (2) IDENTIFIERS: Name and Date of confirmed by patient verbally. FALL SCREENING: Has the patient had 2 falls in the last year or 1 fall with injury or currently using an Ambulatory Assistive Device (Walker, Cane, Wheelchair, Crutches, etc.)? No PATIENT GENDER DATA: Female. status: : No status: NO. PATIENT RELEVANT IMPLANT DATA REVIEWED: Not Applicable RADIOLOGY DEPARTMENT: Mammography PERIPHERAL IV DATA: Not applicable SIGNED BY: Dipesh Alves May 19, 2022 1:06 [facility]10-11-2022 Miscellaneous Notes * Telephone Encounter - Stephanie Alfaro LPN - 05/06/2022 1:09 PM EDT Referral was received given to Jazmine to schedule patient. * Telephone Encounter - Stephanie Alfaro LPN - 05/06/2022 12:37 PM EDT Patient is to f/u with primary care physician, per Dr English last office note. Spoke to patient states pcp Dr Sheela Huizar to fax over a referral today. * Telephone Encounter - Love Harrell - 05/06/2022 10:00 AM EDT Patient called to schedule yearly mammogram but is experiencing R breast pain. Please place appropriate order and call patient to schedule. documented in this encounterC[facility] noteNo assessment information availableMercy Health St. [facility] Work Phone: Evaluation note* Diagnosis Pelvic pain in female- Primary Unspecified symptom associated with female genital organs Secondary oligomenorrhea Scanty or infrequent menstruation Uterine leiomyoma, unspecified location Abnormal uterine bleeding (AUB) Cyst of left ovary Other and unspecified ovarian cyst Urinary frequency Urinary urgency Urgency of urination documented in this encounter [facility] note* Diagnosis Hydrosalpinx- Primary Chronic salpingitis and oophoritis Pelvic pain in female Unspecified symptom associated with female genital organs Pre-op exam Preoperative examination, unspecified documented in this encounter [facility] note* Diagnosis Onset Date Resolution Status Admit Date Perimenopausal vasomotor symptoms acute December 28, 2024 9 :48am Encounter for routine gynecological examination noneactive December 282024 9:48am [facility] Work Phone: Hospital Discharge instructions Additional Instructions Implant Used?: [facility] Work Phone: Reason for referral (narrative)* Outpatient Procedure (Routine) - Pending Review Specialty Diagnoses / Procedures Referred By Mendoza leo Referred To Contact [facility] Diagnoses Uterine leiomyoma, unspecified location Secondary oligomenorrhea Abnormal uterine bleeding (AUB) Procedures INSERT INTRAUTERINE DEVICE LEVONORGESTREL IU 52MG 5 YR INSERT INTRAUTERINE DEVICE Robyn Pearce MD [address] [place] [address] [facility] [address] [address] Referral ID Status Reason Start Date Expiration Date Visits Requested Visits Authorized [id number] Pending Review Auto-Generat ed Referral 11/04/2022 11/04/2023 1 1 * Outpatient Procedure (Routine) - Pending Review Specialty Diagnoses / Procedures Referred By Contac t Referred To Contact [facility] Diagnoses Secondary oligomenorrhea Abnormal uterine bleeding (AUB) Procedures ENDOMETRIAL BIOPSY ENDOMETRIAL BX W/WO ENDOCERVIX BX W/O DILAT SPX Robyn Pearce MD [address] [place] [id number] [place] [address] Referral ID Status Reason Start Date Expiration Date Visits Requested Visits Authorized [id number] Pending Review Auto-Generat ed Referral 11/04/2022 11/04/2023 1 1 * Diagnostic Procedure Only (Routine) - Pending Review Specialty Diagnoses / Procedures Referred By Contac t Referred To Contact [facility] Diagnoses Cyst of left ovary Uterine leiomyoma, unspecified location Secondary oligomenorrhea Procedures PELVIC US WHI US PELVIC NONOBSTETRIC REAL-TIME IMAGE COMPLETE Robyn Pearce MD [address] [place] [address] [id number] [place] [address] Referral ID Status Reason Start Date Expiration Date Visits Requested Visits Authorized [id number] Pending Review Auto-Generat ed Referral 11/04/2022 11/04/2023 1 1 [facility]No reason for referral information availableLos Angeles Hinge Services Work Phone: Summary Purpose Family History Relationship Condition Age at Onset Recorded Date/T koki Not Specified Diabetes mellitus Unknown High blood cholesterol Unknown Depression Unknown Cardiac disease Unknown Malignant neoplasm Unknown Advance Directives Advance Directive Response Recorded Date/ Time Living Will No July 03 4:16pm Power of Master Merchandiser No July 03, 2022 4:16pm Advance Directive Response Recorded Date/ Time Living Will No January 08, 2023 11:18am Power of Master Merchandiser No January 08 11:18am Chief Complaint and Reason for Visit Chief Complaint abd pain Chief Complaint LAP BILATERAL SALPIN G Chief Complaint Admit Date Annual (ICU NURSE) December 28, 2024 9:48a m Reason for Visit Admit Date Perimenopausal vasomotor symptoms December 282024 9:48am Encounter for routine gynecological exam ination December 28, 2024 9:48am Chief Complaint Admit Date Annual (ICU NURSE) December 28, 2024 9:48a m annual January 10, 2025 3:11 pm ABNORMAL [place] January 17, 2025 8:51 am Additional Source Comments INFORMATION SOURCE (unrecogn ized section and content) DATE CREATED AUTHOR 12/27/2019 [facility] DATE CREATED AUTHOR AUTHOR'S ORGANIZ ATION 02/11/2020 [facility] DATE CREATED AUTHOR AUTHOR'S ORGANIZ ATION 07/19/2021 [facility] DATE CREATED AUTHOR AUTHOR'S ORGANIZ ATION 01/28/2023 [facility] DATE CREATED AUTHOR AUTHOR'S ORGANIZ ATION 09/12/2023 [facility] DATE CREATED AUTHOR AUTHOR'S ORGANIZ ATION 10/13/2024 [facility] DATE CREATED AUTHOR AUTHOR'S ORGANIZ ATION 01/13/2025 [facility] Source Comments (unrecognize d section and content) In the event this informatio n is protected by the Federal Confidentiality of Alcohol and Drug Abuse Patient Records regulations: The Federal rules restrict any use of the information to criminally investigate or prosecute any alcohol or drug abuse patient.[facility] NorthIn the event this information is protected by the Federal Confidentiality of Alcohol and Drug Abuse Patient Records regulations: The Federal rules restrict any use of the information to criminally investigate or prosecute any alcohol or drug abuse patient.[facility] NorthIn the event this information is protected by the Federal Confidentiality of Alcohol and Drug Abuse Patient Records regulations: The Federal rules restrict any use of the information to criminally investigate or prosecute any alcohol or drug abuse patient.[facility] NorthIn the event this information is protected by the Federal Confidentiality of Alcohol and Drug Abuse Patient Records regulations: The Federal rules restrict any use of the information to criminally investigate or prosecute any alcohol or drug abuse patient.[facility] NorthIn the event this information is protected by the Federal Confidentiality of Alcohol and Drug Abuse Patient Records regulations: The Federal rules restrict any use of the information to criminally investigate or prosecute any alcohol or drug abuse patient.[facility] NorthIn the event this information is protected by the Federal Confidentiality of Alcohol and Drug Abuse Patient Records regulations: The Federal rules restrict any use of the information to criminally investigate or prosecute any alcohol or drug abuse patient.[facility] NorthIn the event this information is protected by the Federal Confidentiality of Alcohol and Drug Abuse Patient Records regulations: The Federal rules restrict any use of the information to criminally investigate or prosecute any alcohol or drug abuse patient.[facility] Reason for Visit (unrecogniz ed section and content) Reason Comments Orders Reason Comments Discussion Reason Comments Pre-Op Visit Reason Comments Results Care Teams (unrecognized sec tion and content) Answering Service Telephone Operator Relationship Specialty Start Date End Date Oracio Bland MD PCP - General Family Medicine 03/12/15 Answering Service Telephone Operator Relationship Specialty Start Date End Date Oracio Bland MD PCP - General Family Medicine 03/12/15 Answering Service Telephone Operator Relationship Specialty Start Date End Date Oracio Bland MD PCP - General Family Medicine 03/12/15 Answering Service Telephone Operator Relationship Specialty Start Date End Date Oracio Bland MD PCP - General Family Medicine 03/12/15 Answering Service Telephone Operator Relationship Specialty Start Date End Date Oracio Bland MD PCP - General Family Medicine 03/12/15 Team Status: Active Member Role Status Dates Dr. Oracio Bland MD Family Provider Active Fabiana Rnad PA, PA-C Primary Care Provider Active Team Status: Inactive Member Role Status Dates Dr. Robyn Hartman MD Attending Provider, R eferring Provider Active Fabiana Rand PA, PA-C Primary Care Provider Active Answering Service Telephone Operator Relationship Specialty Start Date End Date Oracio Bland MD PCP - [facility] Medicine 03/12/15 Answering Service Telephone Operator Relationship Specialty Start Date End Date Oracio Bland MD PCP - [facility] Medicine 03/12/15 Team Status: Inactive Member Role Status Dates Fabiana Rand PA, PA-C Primary Care Provider Active Start: December 28, 2024 End: December 28, 2024 Fabiana Rand PA, PA-C Referring Provider Active Start: December 28, 2024 End: December 28, 2024 Susan Pozo CNM Attending Provider Active S tart: December 28, 2024 End: December 28, 2024 Team Status: Inactive Member Role Status Dates Fabiana Rand PA, PA-C Primary Care Provider Active Start: December 28, 2024 End: December 28, 2024 Susan Pozo CNM Attending Provider Active S tart: December 28, 2024 End: December 28, 2024 Susan Pozo CNM Referring Provider Active S tart: December 28, 2024 End: December 28, 2024 Team Status: Active Member Role Status Dates Dr. Maribel Vinson MD Primary Care Provider Active Team Status: Inactive Member Role Status Dates Susan Pozo CNM Attending Provider Active S tart: January 10, 2025 End: January 10, 2025 Susan Pozo CNM Referring Provider Active S tart: January 10, 2025 End: January 10, 2025 Dr. Maribel Vinson MD Primary Care Provider Active Start: January 10, 2025 End: January 10, 2025 Team Status: Active Member Role Status Dates Dr. Maribel Vinson MD Primary Care Provider Active Start: January 17, 2025 Susan Sánchez , CNM Attending Provider Active S tart: January 17, 2025 Susan Pozo CNM Referring Provider Active S tart: January 17, 2025 Goals (unrecognized section and content) Goals may be documented in a n alternate sectionGoals may be documented in an alternate sectionGoals may be documented in an alternate sectionGoals may be documented in an alternate sectionGoals may be documented in an alternate section FOR RECORDS PERTAINING TO PATIENTS WHO ARE OR HAVE BEEN ENROLLED IN A CHEMICAL DEPENDENCY/SUBSTANCEABUSE PROGRAM, SOME INFORMATION MAY BE OMITTED. This clinical summary was aggregated from multiple sources. Caution should be exercised in using it in the provision of clinical care. This summary normalizes information from multiple sources, and as a consequence, information in this document may materially change the coding, format and clinical context of patient data. In addition, data may be omitted in some cases. CLINICAL DECISIONS SHOULD BE BASED ON THE PRIMARY CLINICAL RECORDS. [facility]. provides no warranty or guarantee of the accuracy or completeness of information in this document.
== END | disposition home or self-care (01) ==
LOC: OPBI 08:52
PROVIDERS: PCP Student in an Organized Health Care Education/Training Program; Referring Provider Advanced Practice Midwife; Visit Provider Advanced Practice Midwife
DX: N60.01 Solitary cyst of right breast (principal)
CPT/HCPCS: 76642; 77065

== ENCOUNTER → 2025-02-02 | Outpatient (CLI) | payer BC, SELFPAY ==
--- NOTE | 2025-02-02 13:41 | US_ITS ---
PROCEDURE: US BREAST BIOPSY 1ST LESION 02/02/2025 REASON FOR EXAM: F, Age 44 y/o , RIGHT BREAST BX COMPARISON: Prior exam(s) dating back to January 17, 2025.. TECHNIQUE: US BREAST BIOPSY 1ST LESION FINDINGS: ULTRASOUND: Under direct sonographic guidance, the surgeon performed core biopsies of the 5 mm x 4 mm x 3 mm nodule at the 9 o'clock position of the breast at 1 cm from the nipple. US/US Breast Biopsy 1st Lesion IMPRESSION: Ultrasound-guided core biopsy was performed successfully. BI-RADS 2: BENIGN RECOMMEND ANNUAL MAMMOGRAPHIC SCREENING. Reading Location: [place] [address]
--- NOTE | 2025-02-02 14:30 | BRBX_PTH ---
PATIENT: BERE CENTENO LOC: SHE U#:[id number] AGE/SX: 44/F ROOM: RE02/02/[address]: Dr. Paramjit Fisher MD : 1980 BED: DIS: 02/02/2025 SPEC #: [id number] RECD: 02/02/25 14:45 STATUS: SVETA REMayi #: [id number] SUSI: 02/02/25 14:[address]: Paramjit Fisher DEPT: SURGICAL PATHOLOGY RECD BY: Christophe Lopez ENTERED: 02/02/25 15:04 SP TYPE: BREAST BX OTHR DR: Dr. Maribel Cintron MD Tissues: Right breast, NOS Procedures: Surgery Specimen Level IV HEADER OPERATION: Ultrasound guided breast biopsy - 1 lesion PRE-OP DIAGNOSIS: Right breast mass TISSUE SUBMITTED: A- Right breast biopsy MICROSCOPIC DIAGNOSIS A. Breast, right, mass, ultrasound-guided breast biopsy: - Adipose, scant fibrous tissue, and blood with scant benign breast elements - see note. Note: A neoplasm is not seen in these sections (deeper sections examined). A cyst is not identified. Recommend correlation with clinical and imaging findings. MICROSCOPIC DESCRIPTION Slides are reviewed. GROSS DESCRIPTION A. Received in formalin labeled with the patient's name and date of . Designated as RT breast BX 5-samples is a 2.9 x 1.4 x 0.1 cm aggregate of phelps-yellow tissue core fragments and clotted blood. Entirely submitted in 1 cassette. Cold ischemic time: < 1 minuteFormalin fixation time: 15 hours, 35 minutes [place] 02/02/2025 CPT:64944
--- NOTE | 2025-02-02 14:39 | PCM.OPRPT ---
Procedures Integumentary [id number]-[id number]: [id number] Bx breast 1st lesion us imag Operative Report (Standard) Operative Information Date of Procedure: 02/02/25 Pre-Operative Diagnosis: Abnormal right breast mammogram and ultrasound Post-Operative Diagnosis: Same Surgery/Procedure Performed: Ultrasound-guided right breast mammotome biopsy nutrition worker: No Type of Anesthesia: Local Procedure Start Time: 14:25 Procedure Stop Time: 14:35 Select all DRAINS/GRAFTS/IMPLANTS that apply: None Estimated Blood Loss: Minimal Specimen collected: Yes Description of specimen(s) removed: Right breast tissue Description of surgery: The patient is a 44-year-old female who underwent recent mammogram and ultrasound. This revealed about a 5 mm hypoechoic nodule near the right nipple areolar region. She was seen in the office to discuss having this biopsied. In office ultrasound could not reliably reproduce the images noted by radiology. So instead we schedule right breast biopsy to be performed under ultrasound guidance. She was brought to the mammography suite today following informed consent. She is placed supine on the procedure room table. The right breast was scanned by the java [email or web address] technical lead. The lesion in question was identified. The right breast was then prepped and draped in the usual sterile manner. Local anesthetic was infiltrated under ultrasound guidance. A small skin incision was made using #11 blade. The mammotome biopsy device was inserted under ultrasound guidance. This was placed just deep to the lesion in question and numerous suction biopsies were performed until we felt that the site was adequately biopsied. At the completion of the procedure, a marking clip was then deployed. She tolerated this well. Steri-Strips and OpSite were then placed. Postprocedure mammogram will be performed. I will contact her with pathology results once they become available Surgical Findings: See operative note Complications Complications: No Admit VTE Documentation VTE Present on Admission: No VTE Mechan Device Prophylaxis: None VTE Pharm Prophylaxis ordered?: No Reason prophylaxis not ordered: Treatment Not Indicated
--- NOTE | 2025-02-08 11:07 | PCM.PN.BLA ---
Progress Note I called patient yesterday to discuss pathology results. I explained that her results were benign however I would still recommend repeating an ultrasound in 6 months. The lesion that was biopsied was very small and while I do not anticipate sampling error, I would recommend repeating ultrasound just for further reassurance and to document stability. Patient is agreeable to this plan.
== END | disposition home or self-care (01) ==
PROVIDERS: PCP Student in an Organized Health Care Education/Training Program; Referring Provider Surgery; Visit Provider Surgery
DX: N63.41 Unspecified lump in right breast, subareolar (principal); R92.8 Other abnormal and inconclusive findings on diagnostic imaging of breast
CPT/HCPCS: 19083; 88305